=== PATIENT | female | born 1970 | race Caucasian/White ===

== ENCOUNTER 2024-06-28 11:05 | Emergency (ER) | payer BC, MEDICAID, SELFPAY ==
--- NOTE | ~2024-06-28 | CT_ITS ---
EXAMINATION: CT cervical spine wo con DATE: 06/28/2024 12:34 INDICATION: Chronic neck pain TECHNIQUE: Computed tomography (CT) of the cervical spine was performed without intravenous contrast. Automated exposure control and iterative reconstruction technique were employed. The dose-length pro duct was 247.33 mGy-cm. COMPARISON: None FINDINGS: Alignment is normal. Moderate osteoarthritis at the atlantoaxial articulation. Vertebral body heights are normal. No fracture. Mild disc height loss at C2-C3, C4-C5, C5-C6 and C7-T1. C5-6 posterior disc osteophyte complex contributing to mild central canal stenosis at this level. Moderate uncovertebral osteoarthritis on the right at C3-C4 and C5-C6 with mild uncovertebral osteoarthritis at the remaini ng cervical levels. Is also multilevel cervical facet osteoarthritis, severe on the left at C3-C4 C4- C5 and bilaterally at C7-T1 and the visualized upper thoracic spine and mild to moderate severity at the remaining cervical levels. This contributes to moderate bilateral neural foraminal stenosis at C3 -C4 with minimal to mild neural foraminal stenosis at many of the remaining cervical neural foramina. Dystrophic calcifications at the bilateral ankle tonsils. Cervical soft tissues are unremarkable. Vi sualized upper lungs are clear. IMPRESSION: 1. Mild cervical spondylosis with no acute osseous abnormality. Reviewed, dictated and finalized at location A.
--- NOTE | ~2024-06-28 | CT_ITS ---
EXAMINATION: CT brain wo con DATE: 06/28/2024 12:17 INDICATION: Parkinsonian symptoms TECHNIQUE: Computed tomography (CT) of the head was performed without intravenous contrast. Sagittal and coronal reconstructions were performed. The mA was adjusted according to patient size. Iterative reconstruction technique was employed. The dose-length product was 605.33 mGy-cm. COMPARISON: None FINDINGS: No acute intracranial hemorrhage, acute infarction or abnormal extra axial fluid collection. Ventricl es are normal and symmetric. No mass/mass effect. Mucosal thickening in the right maxillary sinus. Th e orbits and mastoid air cells are normal. IMPRESSION: 1. No acute intracranial process. Reviewed, dictated and finalized at location A.
--- OUTSIDE RECORDS SUMMARY | 2024-06-28 11:08 | XMS_ITS | Encounter Summary ---
Author Organization [facility] Address [facility] [place] [address] Care Team Providers Care Rip Saw Operator Name Role Phone Miguel Ángel Oliva MD Primary Care Provider [phone] Encounter Details Date Type Department Care Team (Late st Contact Info) Description 11/23/2021 [employer] Message Enc [facility] Medical Group Multispecialty Care - [address] [place], [place] [id number] [employer], [facility] Provider xray result Social History Tobacco Use Types Packs/Day Years Used Date Smoking Tobacco: Every Day Cigarettes 0.3 20 Smokeless Tobacco: Never Comments:smoking 1 stick per day now Alcohol Use Standard Drinks/Week Comments Never 0 (1 standard drink = 0.6 oz pur e alcohol) AUDIT-C Answer Date Recorded Q1: How often do you have a drink containing alc ohol? Never 06/24/2020 Average Number of Drinks Not on file 021 Frequency of Binge Drinking Not on file 07/2020 PHQ-2 Answer Date Recorded PHQ-2 Score - If the patient scores above 3, please move on to questions 3-9 5 08/16/2021 Comments No Sex and Gender Information Value Date Recorded Sex Assigned at Female 04/24/2024 2:19 PM FINANCIAL PLANNING CONSULTANT Legal Sex Female 4:25 PM CDT Gender Identity Female 05/09/2024 11:14 AM CDT Sexual Orientation Straight 05/09/2024 11 :14 AM CDT COVID-19 Exposure Response Date Recorded In the last 10 days, have yo u been in contact with someone who was confirmed or suspected to have Coronavirus/COVID-19? No / Unsure 11/23/2021 10:35 AM CDT documented as of this encounter Plan of Treatment Upcoming Encounters Date Type Department Care Team (Late st Contact Info) Description 06/30/2024 10:40 AM CDT Office Visit [facility] Medical Group Multispecialty Care - [address] [address] [address] [place] [address] Miguel Ángel Oliva MD [address] [place] [address] documented as of this encounter Visit Diagnoses Not on filedocumented in this encounter Additional Health Concerns Assessment Noted Time PHQ-9 Depression Total Score: 20 022 11:52 AM CDT documented as of this encounter Care Teams Rip Saw Operator Relationship Specialty Start Date End Date Miguel Ángel Oliva MD [address] [place] [address] PCP - General INTERNAL MEDICINE 06/16/21 Nish Hunter Referring Physician 12/04/23 documented as of this encounter
--- OUTSIDE RECORDS SUMMARY | 2024-06-28 11:08 | XMS_ITS | Encounter Summary ---
Author Organization [facility] Address [address] [place] [address] Care Team Providers Care Jockey Agent Name Role Phone Carlyn Mcmahon MD Primary Care Provider [phone] Miguel Ángel Oliva MD Primary Care Provider [phone] Encounter Details Date Type Department Care Team (Late st Contact Info) Description 11/29/2020 Prep for Procedure [facility] [address] [place] [address] Mireya Cardenas MD [address] [facility] [address] [place], [place] [address] Social History Tobacco Use Types Packs/Day Years Used Date Smoking Tobacco: Every Day Cigarettes 0.5 20 Smokeless Tobacco: Never Alcohol Use Standard Drinks/Week Comments Never 0 [...] 3, please move on to questions 3-9 0 12/01/2020 Comments No Sex and Gender Information Value Date Recorded Sex Assigned at Female 04/24/2024 2:19 PM SPECIAL DELIVERY CLERK Legal Sex Female 4:25 PM CDT Gender Identity Female 05/09/2024 11:14 AM CDT Sexual Orientation Straight 05/09/2024 11 :14 AM CDT COVID-19 Exposure Response Date Recorded In the last month, have you been in contact with someone who was confirmed or suspected to have Coronavirus / COVID-19? No / Unsure 12/01/2020 5:42 PM CDT documented as of this encounter Plan of Treatment Upcoming Encounters Date Type Department Care Team (Late st Contact Info) Description 06/30/2024 10:40 AM CDT Office Visit [facility] Group Multispecialty Care - [place] [address] [address] [address] [place] [address] Miguel Ángel Oliva MD [address] [facility] [address] [place] [address] documented as of this encounter Results * PRE-SURGICAL/PRE-PROCEDURE CORONAVIRUS (COVID 19) (12/05/2020 9:06 AM CDT) SPECIMEN SOURCE NASAL 8:48 AM CDT [facility] CORONAVIRUS SARS COV 2 PCR (RESP) NEGATIVE NEGATIVE 12/06/2020 8:26 PM CDT [facility] Comment: THE SARS-CoV-2 TEST HAS BEEN AUTHORIZED BY THE FDA UNDER AN EUA FOR USE BY AUTHORIZED LABORATORIES. PERFORMED BY NUCLEIC ACID AMPLIFICATION PCR FIRST TEST UNKNOWN 12/05/2020 8:48 AM CDT [facility] EMPLOYED IN HEALTHCARE NO 12/05/2020 8:48 AM CDT [facility] SYMPTOMATIC DEFINED BY CDC UNKNOWN 12/05/2020 8:48 AM CDT [facility] HOSPITALIZATION STATUS NO 12/05/2020 8:48 AM CDT [facility] PATIENT IN ICU NO 12/05/2020 8:48 AM CDT [facility] RESIDENT OF [facility] NO 12/05/2020 8:48 AM CDT [facility] NOT 12/05/2020 8:48 AM CDT [facility] NASAL STRUCTURE / Unknown 12/05/2020 9:06 AM CDT Mireya Cardenas MD MICROBIOLOGY - GENERAL ORDER BELLO Final Result [facility] [address] [place] [address], [place] [phone] [facility] [address] [place] [address], [place] [phone] documented in this encounter Visit Diagnoses Diagnosis Preop testing- Primary Preoperative examination, unspecified Annual physical exam- Primary Routine general medical examination at a health care facility General medical exam Unspecified general medical examination Drug therapy Encounter for long-term (current) use of other medications documented in this encounter Additional Health Concerns Infection Onset Date Last Indicated Resolved Time COVID-19 Rule Out 12/05/2020 12/05/2020 12/06/2020 8:26 PM CDT COVID-19 Rule Out 02/04/2021 02/04/2021 02/05/2021 2:31 PM SPECIAL DELIVERY CLERK documented as of this encounter Care Teams Jockey Agent Relationship Specialty Start Date End Date Carlyn Mcmahon MD [address] [place] [address] PCP - General FAMILY PRACTICE 06/24/20 06/15/21 Miguel Ángel Oliva MD [address] [place] [address] PCP - General INTERNAL MEDICINE 06/16/21 Nish Hunter Referring Physician 12/04/23 documented as of this encounter
--- OUTSIDE RECORDS SUMMARY | 2024-06-28 11:08 | XMS_ITS | Encounter Summary ---
Author Organization [facility] Address [facility] [place] [address] Care Team Providers Care Curriculum And Assessment Director Name Role Phone Miguel Ángel Oliva MD Primary Care Provider [phone] Encounter Details Date Type Department Care Team (Late st Contact Info) Description 01/15/2024 Nestio Message Enc [facility] [address] [place] [address] Sandy Washington PTA LSVT appt times Social History Tobacco Use Types Packs/Day Years Used Date Smoking Tobacco: Every Day Cigarettes 0.3 20 Passive Smoke Exposure: Never Smokeless Tobacco: Never Comments:1 cig a day after l unch; counseled by Dr. Oliva. Alcohol Use Standard Drinks/Week Comments Never 0 (1 standard drink = 0.6 oz pur e alcohol) [facility] Utilities Answer Date Recorded In the past 12 months has e electric, gas, oil, or water Effective Measure threatened to shut off services in your home? No 03/13/2023 Humiliation, Afraid, Rape, and Kick questionnair e Answer Date Recorded Within the last year, have y ou been afraid of your partner or ex-partner? No 03/13/2023 Within the last year, have y ou been humiliated or emotionally abused in other ways by your partner or ex-partner? No Within the last year, have y ou been kicked, hit, slapped, or otherwise physically hurt by your partner or ex-partner? No 03/13/2023 Within the last year, have y ou been raped or forced to have any kind of sexual activity by your partner or ex-partner? No 03/13/2023 Social Connection and Isolation Panel [NHANES] A nswer Date Recorded In a typical week, how many times do you talk on the phone with family, friends, or neighbors? Once a week 03/13/2023 How often do you get together with friends or re latives? Never 03/13/2023 How often do you attend scientologist or muslim serv ices? Never 03/13/2023 Do you belong to any clubs o r organizations such as scientologist groups, unions, fraternal or athletic groups, or school groups? No 03/13/2023 How often do you attend meet ings of the clubs or organizations you belong to? Never 03/13/2023 Are you , , di vorced, , never , or living with a partner? 03/13/2023 AUDIT-C Answer Date Recorded Q1: How often do you have a drink containing alcohol? Never 03/13/2023 Q2: How many drinks containi ng alcohol do you have on a typical day when you are drinking? Patient does not drink Q3: How often do you have si x or more drinks on one occasion? Never 03/13/2023 Overall Financial Resource Strain (CARDIA) Answe r Date Recorded How hard is it for you to pa y for the very basics like food, housing, medical care, and heating? Somewhat hard 03/13/2023 PHQ-2 Answer Date Recorded Patient Health Questionnaire-2 Score 2 10/08/2023 [facility] - Occupational Stress Questionnaire Answer Date Recorded Do you feel stress - tense, restless, nervous, or anxious, or unable to sleep at night because your mind is troubled all the time - these days? Very much 03/13/2023 Exercise Vital Sign Answer Date Recorde d On average, how many days pe r week do you engage in moderate to strenuous exercise (like a brisk walk)? 7 days 03/13/2023 On average, how many minutes do you engage in exercise at this level? 10 min 03/13/2023 Hunger Vital Sign Answer Date Recorded Within the past 12 months, y ou worried that your food would run out before you got the money to buy more. Never true 03/13/19 24 Within the past 12 months, t he food you bought just didn't last and you didn't have money to get more. Never true 03/13/2023 PRAPARE - Transportation Answer Date Re corded In the past 12 months, has l ack of transportation kept you from medical appointments or from getting medications? No 02/20 In the past 12 months, has l ack of transportation kept you from meetings, work, or from getting things needed for daily living? No 03/13/2023 Housing Stability Vital Sign Answer Curtis e Recorded In the last 12 months, was t here a time when you were not able to pay the mortgage or rent on time? No 03/13/2023 In the last 12 months, how many places have you lived? 1 03/13/2023 In the last 12 months, was t here a time when you did not have a steady place to sleep or slept in a long-term (including now)? No 03/13/2023 Comments No Sex and Gender Information Value Date Recorded Sex Assigned at Female 04/24/2024 2:19 PM RESEARCH SOIL SCIENTIST Legal Sex Female 4:25 PM CDT Gender Identity Female 05/09/2024 11:14 AM CDT Sexual Orientation Straight 05/09/2024 11 :14 AM CDT documented as of this encounter Functional Status * Are you deaf or do you have serious difficulty hearing Answer Date of Assessment Author Status No 03/13/2023 6:00 PM Kasia Ramírez RN Active * Are you blind or do you have serious difficulty seeing, even when wearing glasses? Answer Date of Assessment Author Status No 03/13/2023 6:00 PM Kasia Ramírez RN Active * Do you have serious difficulty walking or climbing stairs? Answer Date of Assessment Author Status Yes 03/13/2023 6:00 PM Kasia Ramírez RN Active * Do you have difficulty dressing or bathing? Answer Date of Assessment Author Status Yes 03/13/2023 6:00 PM Kasia Rmaírez RN Active * Because of a physical, mental, or emotional condition, do you have difficulty doing errands alone such as visiting a doctor's office or shopping? Answer Date of Assessment Author Status Yes 03/13/2023 6:00 PM Kasia Ramírez RN Active documented as of this encounter Mental Status * Because of a physical, mental, or emotional condition, do you have serious difficulty concentrating, remembering, or making decisions? Answer Entry Date Author Status Yes 03/13/2023 6:00 PM RESEARCH SOIL SCIENTIST Kasia Bourne RN Active documented in this encounter Plan of Treatment Upcoming Encounters Date Type Department Care Team (Late st Contact Info) Description 06/30/2024 10:40 AM CDT Office Visit [facility] Multispecialty [facility] - [address] [address] [address] [place] [address] Miguel Ángel Oliva MD [address] [place] [address] documented as of this encounter Visit Diagnoses Not on filedocumented in this encounter Additional Health Concerns Assessment Noted Time PHQ-9 Depression Total Score: 12 024 11:33 AM CDT documented as of this encounter Care Teams Curriculum And Assessment Director Relationship Specialty Start Date End Date Miguel Ángel Oliva MD [address] [place] [address] PCP - General INTERNAL MEDICINE 06/16/21 Nish Hunter Referring Physician 12/04/23 documented as of this encounter
--- OUTSIDE RECORDS SUMMARY | 2024-06-28 11:08 | XMS_ITS | Encounter Summary ---
Author Organization [facility] Address [address] [place] [address] Care Team Providers Care Granulizing Machine Operator Name Role Phone Miguel Ángel Oliva MD Primary Care Provider [phone] Encounter Details Date Type Department Care Team (Late st Contact Info) Description 11/30/2021 [employer] Message Enc [facility] Multispecialty Care - [facility] [address] [facility], [address] [place] [address] [employer], [facility] Provider Schedule EMG Social History Tobacco Use Types Packs/Day Years [...] Sex Assigned at Female 04/24/2024 2:19 PM TENT ASSEMBLER Legal Sex Female 4:25 PM CDT Gender Identity Female 05/09/2024 11:14 AM CDT Sexual Orientation Straight 05/09/2024 11 :14 AM CDT COVID-19 Exposure Response Date Recorded In the last 10 days, have yo u been in contact with someone who was confirmed or suspected to have Coronavirus/COVID-19? No / Unsure 11/28/2021 11:58 AM CDT documented as of this encounter Plan of Treatment Upcoming Encounters Date Type Department Care Team (Late st Contact Info) Description 06/30/2024 10:40 AM CDT Office Visit [facility] Multispecialty Care - [address] [address] [address] [place] [address] Miguel Ángel Oliva MD [address] [place] [address] documented as of this encounter Visit Diagnoses Not on filedocumented in this encounter Additional Health Concerns Assessment Noted Time PHQ-9 Depression Total Score: 20 022 11:52 AM CDT documented as of this encounter Care Teams Granulizing Machine Operator Relationship Specialty Start Date End Date Miguel Ángel Oliva MD [address] [place] [address] PCP - General INTERNAL MEDICINE 06/16/21 Nish Hunter Referring Physician 12/04/23 documented as of this encounter
--- OUTSIDE RECORDS SUMMARY | 2024-06-28 11:09 | XMS_ITS | Encounter Summary ---
Author Organization [facility] Address [facility] [place] [address] Care Team Providers Care Bundler Name Role Phone Miguel Ángel Oliva MD Primary Care Provider [phone] Encounter Details Date Type Department Care Team (Late st Contact Info) Description 09/26/2021 Dry Lube Message Enc [facility] Medical Group Multispecialty Care - [address] [place], [place] [id number] [facility] Provider Lab result Social History Tobacco Use Types Packs/Day [...] Sex Assigned at Female 04/24/2024 2:19 PM CONTROL VALVE TECHNICIAN Legal Sex Female 4:25 PM CDT Gender Identity Female 05/09/2024 11:14 AM CDT Sexual Orientation Straight 05/09/2024 11 :14 AM CDT COVID-19 Exposure Response Date Recorded In the last 10 days, have yo u been in contact with someone who was confirmed or suspected to have Coronavirus/COVID-19? No / Unsure 09/23/2021 2:09 PM CDT documented as of this encounter Plan of Treatment Upcoming Encounters Date Type Department Care Team (Late st Contact Info) Description 06/30/2024 10:40 AM CDT Office Visit [facility] Medical Group Multispecialty Care - [address] [address] [address] [place] [address] Miguel Ángel Oliva MD [address] [place] [address] documented as of this encounter Visit Diagnoses Not on filedocumented in this encounter Additional Health Concerns Assessment Noted Time PHQ-9 Depression Total Score: 20 022 11:52 AM CDT documented as of this encounter Care Teams Bundler Relationship Specialty Start Date End Date Miguel Ángel Oliva MD [address] [place] [address] PCP - General INTERNAL MEDICINE 06/16/21 Nish Hunter Referring Physician 12/04/23 documented as of this encounter
--- OUTSIDE RECORDS SUMMARY | 2024-06-28 11:09 | XMS_ITS | Encounter Summary ---
Author Organization [facility] Care Team Providers Care Adobe Layer Helper Name Role Phone Griffin Banks MD Primary Care Provider [phone] Juan Carlos Bangura MD Unavailable [phone] Miguel Ángel Oliva MD Primary Care Provider [phone] Keon Jasso MD Unavailable [phone] Encounter Details Date Type Department Care Team (Latest Contact Info) Description 02/17/2015 Orders Only [facility] CLINCONV ProviderYann MD [address] [place] [address] Social History Tobacco Use Types Packs/Day Years Used Date Smoking Tobacco: Never Assessed Comments Unknown Sex and Gender Information Value Date Recorded Sex Assigned at Not on file Legal Sex Female 7:08 AM PSYCHIATRIC SECRETARY Gender Identity Not on file Sexual Orientation Not on file documented as of this encounter Plan of Treatment Not on file documented as of this encounter Procedures Procedure Name Priority Date/Time Associated Diagnosis Comments SCAN - LABS 03/05/2015 12:00 AM PSYCHIATRIC SECRETARY documented in this encounter Results * SCAN - LABS (03/05/2015 12:00 AM PSYCHIATRIC SECRETARY) Narrative 03/05/2015 12:00 AM PSYCHIATRIC SECRETARY Ordered by an unspecified provider. us Historical Provider Final Res ult documented in this encounter Visit Diagnoses Not on filedocumented in this encounter Additional Health Concerns Infection Onset Date Last Indicated Resolved Time COVID: Suspected 04/04/2024 04/04/2024 04/04/2024 12:15 PM PSYCHIATRIC SECRETARY documented as of this encounter Care Teams Adobe Layer Helper Relationship Specialty Start Date End Date Griffin Banks MD [address] [facility] [address] [place] [address] PCP - General 06/12/16 10/03/22 Miguel Ángel Oliva MD [address] [place] [address] PCP - General Internal Medicine 10/04/22 Juan Carlos Bangura MD [address] [facility] [address] [place] [address] Referring Physician Neurology 09/12/22 Keon Jasso MD [phone] [place] [address] Surgeon Colon and Rectal Surgery 05/24/23 documented as of this encounter
--- OUTSIDE RECORDS SUMMARY | 2024-06-28 11:09 | XMS_ITS | Clinical Summary ---
Author Organization [facility] Address [facility] [place] [address] Care Team Providers Care Kiln Car Repairer Name Role Phone Miguel Ángel Oliva MD Primary Care Provider [phone] Allergies Active Allergy Reactions Criticality Noted Date Comments Gabapentin Syncope High 03/13/2023 Can not take anymore. Penicillins Hives,Rash High 06/24/2020 Other reaction(s): Hives Reaction: Hives, Rash, Medications Magnesium 100 MG TabIndications:Hy pomagnesemia Take 100 mg by mouth daily. 90 tablet 1 09/24/19 22 Active lidocaine 4 % patchIndications: Cervical radiculopathy Place 1 patch onto the skin daily. Remove & Discard patch within 12 hours or as directed by MD 30 patch 12/15/19 22 Active carbidopa-levodop a (SINEMET) 25-100 MG tablet TAKE 1 AND 1/2 TABLETS BY MOUTH THREE TIMES DAILY 07/22/19 24 Active azelastine (ASTELIN) 0.1 % nasal sprayIndications: Seasonal allergic rhinitis, unspecified trigger 1 spray by Nasal route 2 (two) times daily. Use in each nostril as directed 30 mL 1 10/08/19 24 Active Additional Information Patient not taking.Reported on 05/09/2024 ondansetron (ZOFRAN-ODT) 4 MG disintegrating tabletIndications :Nausea DISSOLVE 1 TABLET ON THE TONGUE EVERY 12 HOURS NEEDED FOR NAUSEA 180 tablet 11/19/19 24 Active famotidine (PEPCID) 20 MG tabletIndications :Epigastric pain Take 1 tablet (20 mg total) by mouth 2 (two) times daily. 180 tablet 1 01/28/20 24 Active amLODIPine (NORVASC) 10 MG tabletIndications :Primary hypertension Take one tablet if blood pressure >160/90 mmhg 90 tablet 01/28/20 24 Active Additional Information Patient not taking.Reported on 05/09/2024 busPIRone (BUSPAR) 30 MG tabletIndications :Anxiety Take 1 tablet (30 mg total) by mouth 2 (two) times daily. 180 tablet 1 01/28/20 24 Active Additional Information Patient not taking.Reported on 05/09/2024 DULoxetine (CYMBALTA) 30 MG capsuleIndication s:Anxiety,Moderat e episode of recurrent major depressive disorder (CMS/HCC) Take 1 capsule (30 mg total) by mouth daily. 90 capsule 01/28/20 24 Active Additional Information Patient not taking.Reported on 05/09/2024 ezetimibe (ZETIA) 10 MG tabletIndications :Mixed hyperlipidemia Take 1 tablet (10 mg total) by mouth daily. 90 tablet 3 01/28/20 24 Active Additional Information Patient not taking.Reported on 05/09/2024 fluticasone propionate (FLONASE) 50 MCG/ACT nasal sprayIndications: Seasonal allergic rhinitis, unspecified trigger 2 sprays by Nasal route daily. 16 g 5 01/28/20 24 Active Additional Information Patient not taking.Reported on 05/09/2024 omeprazole (PRILOSEC) 40 MG capsuleIndication s:Gastroesophagea l reflux disease without esophagitis Take 1 capsule (40 mg total) by mouth daily. 90 capsule 1 01/28/20 24 Active rosuvastatin (CRESTOR) 40 MG tabletIndications :Mixed hyperlipidemia Take 1 tablet (40 mg total) by mouth nightly at bedtime. 90 tablet 1 01/28/20 24 Active triamterene-hydro CHLOROthiazide (MAXZIDE-25) 37.5-25 MG tabletIndications :Meniere's disease of both ears,Primary hypertension Take 1 tablet by mouth daily. 90 tablet 2 01/28/20 24 Active Lidocaine HCl (GI COCKTAIL, -10ML,VISC LIDOCAINE-10ML,MY LANTA-30ML,)Indic ations:Epigastric pain Take 30 mLs by mouth daily as needed. 200 mL 01/28/20 24 Active Additional Information Patient not taking.Reported on 05/09/2024 Sodium Sulfate-Mag Sulfate-KCl (SUTAB) 8959-035-194 MG TabIndications:Ch ronic diarrhea,Upper abdominal pain Take 12 tablets by mouth see administration instructions. Take 12 tablets at 5:00pm the evening before colonoscopy then take 12 tablets at 4:00am morning of colonoscopy. 24 tablet 01/30/20 24 Active Additional Information Patient not taking.Reported on 05/09/2024 docusate sodium (COLACE) 100 MG capsule Take 1 capsule (100 mg total) by mouth 2 (two) times daily. 03/31/19 25 Active onabotulinumtoxin A (BOTOX) 100 units injection Inject 200 Units into the muscle. 06/18/19 25 026 Active polyethylene glycol (GLYCOLAX) 17 GM/SCOOP powder Take 17 g by mouth daily. 04/11/19 25 Active meclizine (ANTIVERT) 25 MG tabletIndications :Vertigo,Meniere' s disease of both ears TAKE 1 TABLET(25 MG) BY MOUTH TWICE DAILY 30 tablet 05/27/19 25 Active ALPRAZolam (XANAX) 1 MG tabletIndications :Meniere's disease of both ears Take 1 tablet (1 mg total) by mouth daily as needed for Anxiety. 10 tablet 06/25/19 25 Active ALPRAZolam (XANAX) 1 MG tabletIndications :Meniere's disease of both ears Take 1 tablet (1 mg total) by mouth daily as needed for Anxiety. 30 tablet 05/27/19 25 025 Disconti nued(Reo rder) Active Problems Problem Noted Date Diagnosed Date Gait disorder 04/23/2024 Chronic diarrhea 01/30/2024 Upper abdominal pain 01/30/2024 Parkinson's disease ([facility]) 12/04/2023 Pelvic pain 06/11/2023 At high risk for falls 04/30/2023 Cervical radiculopathy 12/14/2021 Parkinsonism ([facility]) 12/13/2021 Recurrent major depressive disorder 07/20/2021 Overview (07/20/2021): On Cymbalta with close follow up. Referred to therapy. No suicidal ideation or intention to harm. Hypertension 07/20/2021 Chronic low back pain 07/20/2021 Polyarthralgia 07/20/2021 Fibromyalgia 07/20/2021 Liver nodule 02/22/2021 Status post laparoscopic cholecystectomy 022 Anxiety 11/24/2015 Active cochleovestibular Meniere's disease 05/19 Migraine headache 05/20/2015 Meniere's disease 03/17/2015 Vertigo 11/19/2005 Resolved Problems Problem Noted Date Diagnosed Date Resolved Date Rectal pain 06/28/2020 06/15/2021 Overview (06/28/2020): Added automatically from request for surgery [id number] Rectal bleed 06/28/2020 06/15/2021 Overview (06/28/2020): Added automatically from request for surgery [id number] Hemorrhoids 06/28/2020 06/15/2021 Overview (06/28/2020): Added automatically from request for surgery [id number] Encounters Date Type Department Care Team Description 06/27/2024 Telephone [facility] Multispecialty Care - [place] [address] [facility] [address] [place] [address] Miguel Ángel Oliva MD ENT Symptoms 06/05/2024 1:07 PM CDT - 06/05/2024 11:59 PM CDT Hospital Encounter [facility] Outpatient Rehab [address] [place] [id number] Sheyla Murillo, PT Miguel Ángel Oliva MD Gait Disturbance Discharge Disposition: Home or Self Care (Routine Discharge) 06/05/2024 1:07 PM CDT - 06/05/2024 11:59 PM CDT Hospital Encounter [facility] Occupational Therapy [id number] [place] [id number] Heidi Matias V, OT Miguel Ángel Oliva MD Weakness Discharge Disposition: Home or Self Care (Routine Discharge) 06/05/2024 Travel 06/03/2024 1:42 PM CDT - 06/03/2024 11:59 PM CDT Hospital Encounter [facility] Outpatient Rehab [address] [place] [address] Miguel Ángel Oliva MD Arentsen, Anita A, PRINCIPAL STATISTICAL SCIENTIST Discharge Disposition: Home or Self Care (Routine Discharge) 06/03/2024 Travel 05/29/2024 10:36 AM CDT - 05/29/2024 11:59 PM CDT Hospital Encounter [facility] Outpatient Rehab [address] [place] [address] Heidi Matias V, Miguel Ángel Guerrero MD Arentsen, Anita A, PRINCIPAL STATISTICAL SCIENTIST Balance Problem Discharge Disposition: Home or Self Care (Routine Discharge) 05/29/2024 10:30 AM CDT - 05/29/2024 10:35 AM CDT Hospital Encounter [facility] Occupational Therapy [address] [place] [address] Heidi Matias V, Miguel Ángel Guerrero MD Weakness Discharge Disposition: Home or Self Care (Routine Discharge) 05/29/2024 Travel 05/26/2024 11:00 AM CDT - 05/26/2024 11:59 PM CDT Hospital Encounter [facility] Outpatient Rehab [address] [place] [id number] Sheyla Murillo, PT Miguel Ángel Oliva MD Gait Disturbance Discharge Disposition: Home or Self Care (Routine Discharge) 05/26/2024 Travel 05/19/2024 1:00 PM CDT - 05/19/2024 11:59 PM CDT Hospital Encounter [facility] Outpatient Rehab [address] [place] [phone] Sheyla Murillo, PT Miguel Ángel Oliva MD Gait Disturbance Discharge Disposition: Home or Self Care (Routine Discharge) 05/19/2024 Travel 05/09/2024 11:00 AM CDT Office Visit [facility] Medical [facility] Multispecialty Care - [address] [place] [address] Miguel Ángel Oliva MD Follow Up (Hospital stay and status post hemorrhoidectomy); Constipation; Urinary Problem 05/09/2024 Travel 05/06/2024 10:45 AM CDT - 05/06/2024 11:59 PM CDT Hospital Encounter [facility] Outpatient Rehab [address] [place] [address] Sheyla Murillo, PT Miguel Ángel Oliva MD Gait Disturbance Discharge Disposition: Home or Self Care (Routine Discharge) 05/06/2024 Travel 05/01/2024 Scan [facility] SRVCS Scanned, [facility] 04/30/2024 10:43 AM CDT - 04/30/2024 11:59 PM CDT Hospital Encounter [facility] Occupational Therapy [address] [place] [address] Heidi Matias V, OT Miguel Ángel Oliva MD Weakness Discharge Disposition: Home or Self Care (Routine Discharge) 04/30/2024 Travel 04/23/2024 [facility]phone [facility] [place] [address] [address] [facility] [address] [place] [address] Miguel Ángel Oliva MD Hospital Discharge 04/23/2024 Telephone [facility] Outpatient Rehab [address] [place] [address] Nell Marcos, PT Referral 04/11/2024 Telephone [place] [address] [address] [facility] [address] [place] [address] Miguel Ángel Oliva MD Question 04/04/2024 Scan [facility] Scanned, [facility] from Last 3 Months Immunizations Immunization Administration Dates Next Due Tdap (Generic) 02/19/2015 Family History Medical History Relation Comments Anxiety Father Depression Father Heart Father Heart Disease Father Hypertension Father Rheumatoid Arthritis Father Diabetes Mother Heart Mother Hypertension Mother Relation Status Comments Father Mother Social History Tobacco Use Types Packs/Day Years Used Date Smoking Tobacco: Former Cigarettes 0.3 59 S tarted: 1985 Passive Smoke Exposure: Never Smokeless Tobacco: Never Tobacco Cessation:Counseling Given: Yes Comments:1 cig a day after lunch; counseled by Dr. Oliva. Alcohol Use Standard Drinks/Week Comments Never 0 (1 standard drink = 0.6 oz pur e alcohol) [facility] Utilities Answer Date Recorded In the past 12 months has th e electric, gas, oil, or water company threatened to shut off services in your [...] Never 03/13/2023 How often do you attend confucianist or rastafarian serv ices? Never 03/13/2023 Do you belong to any clubs o r organizations such as confucianist groups, unions, fraternal or athletic groups, or [...] Date Recorded Patient Health Questionnaire-2 Score 2 05/09/2024 [facility] [place] [facility] Occupat ional Health - Occupational Stress [...] place to sleep or slept in a senior living (including now)? No 03/13/2023 Comments No Sex and Gender Information Value Date Recorded Sex Assigned at Female 04/24/2024 2:19 PM DESTINATION IMAGINATION COORDINATOR Legal Sex Female 4:25 PM CDT Gender Identity Female 05/09/2024 11:14 AM CDT Sexual Orientation Straight 05/09/2024 11 :14 AM CDT Last Filed Vital Signs Vital Sign Reading Time Taken Comments Blood Pressure 136/82 05/09/2024 11:16 AM CDT Pulse 65 05/09/2024 11:16 AM CDT Temperature 36.4 C (97.6 F) 05/09/2024 11:16 AM CDT Respiratory Rate 18 05/09/2024 11:16 AM CDT Oxygen Saturation 100% 05/09/2024 11:16 AM CDT Inhaled Oxygen Concentration - - Weight 57.9 kg (127 lb 9.6 oz) 05/09/2024 11:16 AM CDT Height 167.6 cm (5' 6 ) 05/09/2024 11:16 AM CDT Body Mass Index 20.6 05/09/2024 11:16 AM CDT Plan of Treatment Upcoming Encounters Date Type Department Care Team (Late st Contact Info) Description 06/30/2024 10:40 AM CDT Office Visit [facility] Medical [facility] Multispecialty Care [place] [address] [place] [address] [address] [place], [place] [phone] Miguel Ángel Oliva MD [address] [facility] [address] [place], [place] [id number] Health Maintenance Due Date Last Done Comments Hepatitis B Vaccines (1 of 3 - 19+ 3-dose series) 02/04/1988 Mammogram Screening 2009 Pneumococcal Vaccine: 50+ Years (1 of 1 - PCV) 2019 Zoster Vaccines (1 of 2) 2019 COVID-19 Vaccine (1 - 2023-2 5 season) 2023 Annual Physical 07/03/2024 07/04/2023, 06/19/2022, 06/15/2021 DTaP, Tdap and Td Vaccines ( 2 - Td or Tdap) 02/19/2025 02/19/2015 Colorectal Cancer Screening Colonoscopy (10 Years) 08/04/2030 08/04/2020, 08/04/2020 Hepatitis C Completed 06/15/2021 PHQ-2 (Physician [place]) Completed 05/09/2024 Meningococcal B Vaccine Aged Out No l onger eligible based on patient's age to complete this topic Meningococcal Vaccine Aged Out No ahmet jessica eligible based on patient's age to complete this topic RSV Immunizations Under 20 Months Aged Out No longer eligible b ased on patient's age to complete this topic Procedures Procedure Name Priority Date/Time Associated Diagnosis Comments CBC W/DIFF AUTOMATED Routine 05/09/2024 11:57 AM CDT Drug therapy Status post hemorrhoidectomy Urine retention Slow transit constipation TSH W/REFLEX Routine 05/09/2024 11:57 AM CDT Drug therapy Status post hemorrhoidectomy Urine retention Slow transit constipation COMPREHENSIVE METABOLIC PANEL Routine 05/09/2024 11:57 AM CDT Drug therapy Status post hemorrhoidectomy Urine retention Slow transit constipation COLLECTION VENOUS BLOOD VENIPUNCTURE Routine 05/09/2024 11:40 AM CDT Drug therapy Status post hemorrhoidectomy Urine retention Slow transit constipation HEPATITIS C ANTIBODY Routine 06/15/2021 12:28 PM CDT Annual physical exam Encounter to establish care Routine general medical examination at a health care facility Encounter for hepatitis C screening test for low risk patient COLONOSCOPY GENERIC (SCAN ORDER) Routine 08/04/2020 from Last 3 Months or Most Recently Relevant to Health Maintenance Results * TSH W/REFLEX (05/09/2024 11:57 AM CDT) TSH 0.608 0.358 - 3.740 uIU/ML 05/09/2024 8:00 PM CDT [facility] 05/09/2024 11:5 7 AM CDT Miguel Ángel Oliva MD LABORATORY Final Result Performing Organization Address City/State/[facility] Co de Phone Number [facility] [address] [place] [address], [place] [phone] * (ABNORMAL) COMPREHENSIVE METABOLIC PANEL (05/09/2024 11:57 AM CDT) SODIUM S/P/B 143 136 - 145 MMOL/L 05/09/2024 8:00 PM CDT [facility] POTASSIUM S/P/B 4.2 3.5 - 5.1 MMOL/L 05/09/2024 8:00 PM CDT [facility] CHLORIDE S/P/B 104 98 - 107 MMOL/L 05/09/2024 8:00 PM [facility] CO2 32.3(H) 21 - 32 MMOL/L 05/09/2024 8:00 PM CDT [facility] GLUCOSE 80 70 - 99 MG/DL 05/09/2024 8:00 PM T [facility] BUN 11 7 - 18 MG/DL 05/09/2024 8:00 PM T [facility] CREATININE S/P/B 0.49(L) 0.55 - 1.02 MG/DL 05/09/2024 8:00 PM T [facility] CALCIUM S/P/B 9.3 8.4 - 10.5 MG/DL 05/09/2024 8:00 PM [facility] BILIRUBIN TOTAL S/P/B 0.5 0.2 - 1.0 MG/DL 05/09/2024 8:00 PM T [facility] ALKALINE PHOSPHATASE S/P/B 54 41 - 108 U/L 05/09/2024 8:00 PM T [facility] AST 12(L) 15 - 37 U/L 05/09/2024 8:00 PM T [facility] ALT 19 14 - 59 U/L 05/09/2024 8:00 PM T [facility] TOTAL PROTEIN S/P/B 7.1 6.4 - 8.2 G/DL 05/09/2024 8:00 PM T [facility] ALBUMIN S/P/B 4.5 3.4 - 5.0 G/DL 05/09/2024 8:00 PM T [facility] ANION GAP 6.7 5 - 15 MMOL/L 05/09/2024 8:00 PM T [facility] Comment:REFERENCE RANGE NOT ESTABLISHED OSMOLALITY (CALC) 294 MOSM/KG 025 8:00 PM CDT [facility] Comment:REFERENCE RANGE NOT ESTABLISHED GFR ESTIMATE >90 >90 ML/MIN/1. 73 M2 05/09/2024 8:00 PM CDT [facility] GFR NOTES GFR REFERENCE S: 05/09/2024 8:00 PM CDT [facility] Comment: THE ESTIMATED GFR IS CALCULATED USING THE 2020 CKD-EPI EQUATION. THE FOLLOWING CATEGORIES FOR GRADING RENAL FUNCTION ARE RECOMMENDED BY THE INTERNATIONAL SOCIETY OF NEPHROLOGY (KDIGO 2012 CLINICAL PRACTICE GUIDELINE). G1,NORMAL OR HIGH: >89 ml/min/1.73 m2 G2,MILDLY DECREASED: 60-89 ml/min/1.73 m2 G3A,MILDLY TO MODERATELY DECREASED: 45-59 ml/min/1.73 m2 G3B,MODERATELY TO SEVERELY DECREASED: 30-44 ml/min/1.73 m2 G4,SEVERELY DECREASED: 15-29 ml/min/1.73 m2 G5,KIDNEY FAILURE: <15 ml/min/1.73 m2 05/09/2024 11:5 7 AM CDT Miguel Ángel Oliva MD LABORATORY Final Result [facility] [address] [place] [address], * (ABNORMAL) CBC W/DIFF AUTOMATED (05/09/2024 11:57 AM CDT) WBC 5.47 4.00 - 10.80 x10'3/uL 05/09/2024 7:31 PM CDT [facility] RBC 4.47 4.10 - 5.40 x10'6/uL 05/09/2024 7:31 PM CDT [facility] HGB 14.2 12.0 - 16.0 G/DL 05/09/2024 7:31 PM CDT [facility] HCT 41.6 36.0 - 47.0 % 05/09/2024 7:31 PM CDT [facility] MCV 93.1 78.0 - 100.0 FL 05/09/2024 7:31 PM CDT [facility] MCH 31.8(H) 27.0 - 31.0 PG 05/09/2024 7:31 PM CDT [facility] MCHC 34.1 33.0 - 36.0 G/DL 05/09/2024 7:31 PM CDT [facility] RDW 12.2 11.5 - 14.5 % 05/09/2024 7:31 PM CDT [facility] PLT 259 150 - 350 x10'3/uL 05/09/2024 7:31 PM CDT [facility] MPV 9.0 7.4 - 10.4 FL 05/09/2024 7:31 PM CDT [facility] DIFFERENTIAL TYPE AUTOMATED DIFFERENTIAL 05/09/2024 7:31 PM CDT [facility] NEUTROPHILS % 64.2 % 05/09/2024 7:31 PM CDT [facility] LYMPHOCYTES % 29.6 % 05/09/2024 7:31 PM CDT [facility] MONOCYTES % 4.9 % 05/09/2024 7:31 PM CDT [facility] EOSINOPHILS % 1.1 % 05/09/2024 7:31 PM CDT [facility] BASOPHILS % 0.2 % 05/09/2024 7:31 PM CDT [facility] IMMATURE GRANS % 0.0 % 05/09/2024 7:31 PM CDT [facility] ABS. NEUTROPHILS 3.51 1.60 - 8.30 x10'3/uL 05/09/2024 7:31 PM CDT [facility] ABS. LYMPHOCYTES 1.62 0.80 - 4.70 x10'3/uL 05/09/2024 7:31 PM CDT [facility] ABS. MONOCYTES 0.27 0.00 - 1.50 x10'3/uL 05/09/2024 7:31 PM CDT [facility] ABS. EOSINOPHILS 0.06 0.00 - 0.40 x10'3/uL 05/09/2024 7:31 PM CDT [facility] ABS. BASOPHILS 0.01 0.00 - 0.20 x10'3/uL 05/09/2024 7:31 PM CDT [facility] ABS. IMMATURE GRANULOCYTES 0.00 0.00 - 0.03 x10'3/uL 05/09/2024 7:31 PM CDT [facility] 05/09/2024 11:5 7 AM CDT Miguel Ángel Oliva MD LABORATORY Final Result Performing Organization Address City/[facility]/ZIP Co de Phone Number [facility] [address] [place] [address], [place] [phone] * HEPATITIS C ANTIBODY (06/15/2021 12:28 PM CDT) HEPATITIS C AB NON-REACTI VE NON-REACT KISHA 06/15/2021 9:[address] [facility] Comment: ANTIBODIES TO HCV NOT DETECTED. DOES NOT EXCLUDE THE POSSIBILITY OF EXPOSURE TO HCV. 06/15/2021 12:2 8 PM CDT Miguel Ángel Oliva MD LABORATORY Final Result [facility] [address] [place] [address], [place] [phone] [id number] * COLONOSCOPY (08/04/2020) Documents Scanned SCANNING Final Result [facility] ONBASE from Last 3 Months or Most Recently Relevant to Health Maintenance Insurance [facility] BLUE SHIELD MEDICAID Advance Directives * Full Code (Latest Code Status on File) Date Activated Date Inactivated Comments 03/13/2023 3:16 PM 03/15/2023 3:16 PM Care Teams Kiln Car Repairer Relationship Specialty Start Date End Date Miguel Ángel Oliva MD [address] [facility] [address] [place] [id number] PCP - General INTERNAL MEDICINE 06/16/21 Nish Hunter Referring Physician 12/04/23
--- OUTSIDE RECORDS SUMMARY | 2024-06-28 11:09 | XMS_ITS | Encounter Summary ---
Author Organization [facility] Address [address] [place] [address] Care Team Providers Care Caption Writer Name Role Phone Carlyn Mcmahon MD Primary Care Provider Miguel Ángel Oliva MD Primary Care Provider [phone] Encounter Details Date Type Department Care Team (Late st Contact Info) Description 07/22/2020 Prep for Procedure [facility] [address] [place], [place] [id number] Chavo Delgado MD [address] [address] Social History Tobacco Use Types Packs/Day Years [...] of Binge Drinking Not on file 07/2020 Comments No Sex and Gender Information Value Date Recorded Sex Assigned at Female 04/24/2024 2:19 PM POUCH MAKER Legal Sex Female 4:25 PM CDT Gender Identity Female 05/09/2024 11:14 AM CDT Sexual Orientation Straight 05/09/2024 11 :14 AM CDT COVID-19 Exposure Response Date Recorded In the last month, have you been in contact with someone who was confirmed or suspected to have Coronavirus / COVID-19? No / Unsure 06/24/2020 12:59 PM CDT documented as of this encounter Plan of Treatment Upcoming Encounters Date Type Department Care Team (Late st Contact Info) Description 06/30/2024 10:40 AM CDT Office Visit [facility] [place] [address] [facility] [address] [place] [address] Miguel Ángel Oliva MD [address] [facility] [address] [place] [address] documented as of this encounter Results * PRE-SURGICAL/PRE-PROCEDURE CORONAVIRUS (COVID 19) (10/10/2020 9:55 AM CDT) SPECIMEN SOURCE NASAL 9:49 AM CDT [facility] CORONAVIRUS SARS COV 2 PCR (RESP) NEGATIVE NEGATIVE 10/12/2020 1:12 AM CDT [facility] Comment: THE SARS-CoV-2 TEST HAS BEEN AUTHORIZED BY THE FDA UNDER AN EUA FOR USE BY AUTHORIZED LABORATORIES. PERFORMED BY NUCLEIC ACID AMPLIFICATION PCR FIRST TEST NO 10/10/2020 9:49 AM CDT [facility] EMPLOYED IN HEALTHCARE NO 10/10/2020 9:49 AM CDT [facility] SYMPTOMATIC DEFINED BY CDC NO 10/10/2020 9:49 AM CDT [facility] DATE OF SYMPTOM ONSET UNKNOWN 10/10/2020 12:10 PM CDT [facility] HOSPITALIZATION STATUS NO 10/10/2020 9:49 AM CDT [facility] PATIENT IN ICU NO 10/10/2020 9:49 AM CDT [facility] RESIDENT OF [facility] NO 10/10/2020 9:49 AM CDT [facility] NOT 10/10/2020 9:49 AM CDT [facility] NASOPHARYNGEAL SWAB / Unknown 10/10/2020 9:55 AM CDT Mireya Cardenas MD MICROBIOLOGY - GENERAL ORDER BELLO Final Result [facility] [address] [place] [address], [place] [phone] [facility] [address] [place] [address], [place] [phone] * PRE-SURGICAL/PRE-PROCEDURE CORONAVIRUS (COVID 19) (08/01/2020 7:59 AM CDT) SPECIMEN SOURCE NASOPHARYNGEAL SWAB 08/01/2020 7:55 AM CDT [facility] CORONAVIRUS SARS COV 2 PCR (RESP) NEGATIVE NEGATIVE 08/02/2020 6:27 PM CDT [facility] Comment: THE SARS-CoV-2 TEST HAS BEEN AUTHORIZED BY THE FDA UNDER AN EUA FOR USE BY AUTHORIZED LABORATORIES. PERFORMED BY NUCLEIC ACID AMPLIFICATION PCR FIRST TEST UNKNOWN 08/01/2020 7:55 AM CDT [facility] EMPLOYED IN HEALTHCARE UNKNOWN 08/01/2020 7:55 AM CDT [facility] SYMPTOMATIC DEFINED BY CDC UNKNOWN 08/01/2020 7:55 AM CDT [facility] DATE OF SYMPTOM ONSET UNKNOWN 08/01/2020 8:08 AM CDT [facility] HOSPITALIZATION STATUS NO 08/01/2020 7:55 AM CDT [facility] PATIENT IN ICU NO 08/01/2020 7:55 AM CDT [facility] RESIDENT OF [facility] CARE NO 08/01/2020 7:55 AM CDT [facility] NOT 08/01/2020 7:55 AM CDT [facility] NASOPHARYNGEAL SWAB / Unknown 08/01/2020 7:59 AM CDT Chavo Delgado MD MICROBIOLOGY - GENERAL ORDERABLE S Final Result [facility] [address] [place] [address], [place] [phone] [facility] [address] [place] [address], [place] [phone] documented in this encounter Visit Diagnoses Diagnosis Preop testing- Primary Preoperative examination, unspecified Annual physical exam- Primary Routine general medical examination at a health care facility General medical exam Unspecified general medical examination Drug therapy Encounter for long-term (current) use of other medications documented in this encounter Additional Health Concerns Infection Onset Date Last Indicated Resolved Time COVID-19 Rule Out 08/01/2020 08/01/2020 08/02/2020 6:27 PM CDT COVID-19 Rule Out 10/10/2020 10/10/2020 10/12/2020 1:12 AM CDT COVID-19 Rule Out 12/05/2020 12/05/2020 12/06/2020 8:26 PM CDT COVID-19 Rule Out 02/04/2021 02/04/2021 02/05/2021 2:31 PM POUCH MAKER documented as of this encounter Care Teams Caption Writer Relationship Specialty Start Date End Date Carlyn Mcmahon MD [address] [place] [address] PCP - General FAMILY PRACTICE 06/24/20 06/15/21 Miguel Ángel Oliva MD [address] [address] PCP - General INTERNAL MEDICINE 06/16/21 Nish Hunter Referring Physician 12/04/23 documented as of this encounter
--- OUTSIDE RECORDS SUMMARY | 2024-06-28 11:09 | XMS_ITS | Encounter Summary ---
Author Organization [facility] Address Count includes the [facility] [place] [address] Care Team Providers Care Psychotherapist Name Role Phone Miguel Ángel Oliva MD Primary Care Provider [phone] Reason for Visit * Reason Onset Date Comments ENT Symptoms 06/27/2024 Encounter Details Date Type Department Care Team (Late st Contact Info) Description 06/27/2024 Telephone [facility] - [place] [address] [address] [place], [place] [phone] Miguel Ángel Oliva MD [address] [place] [address] [place], [place] [id number] ENT Symptoms Social History Tobacco Use Types Packs/Day Years Used Date Smoking Tobacco: Former Cigarettes 0.3 59 S tarted: 1985 Passive Smoke Exposure: Never Smokeless Tobacco: Never Comments:1 cig a day after l unch; counseled by Dr. Oliva. Alcohol Use Standard Drinks/Week Comments Never 0 (1 standard drink = 0.6 oz pur e alcohol) [facility] Utilities Answer Date Recorded In the past 12 months has [employer], gas, oil, or water [employer] threatened to shut off services in your [...] Never 03/13/2023 How often do you attend zoroastrianism or orthodoxy serv ices? 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 Patient wants to be seen for possible antibiotic. No available apptswith MD or CORRECTIONAL SECURITY OFFICER. Patient states that she feels horrible and does not want to go back to the hospital.Please advise patient when available. documented in this encounter Plan of Treatment Upcoming Encounters Date Type Department Care Team (Late st Contact Info) Description 06/30/2024 10:40 AM CDT Office Visit [facility] [place] [address] [address] [place] [address] Miguel Ángel Oliva MD [address] [place] [id number] documented as of this encounter Visit Diagnoses Not on filedocumented in this encounter Additional Health Concerns Assessment Noted Time PHQ-9 Depression Total Score: 15 025 11:52 AM CDT documented as of this encounter Care Teams Psychotherapist Relationship Specialty Start Date End Date Miguel Ángel Oliva MD [address] [place] [address] PCP - General INTERNAL MEDICINE 06/16/21 Nish Hunter Referring Physician 12/04/23 documented as of this encounter
--- OUTSIDE RECORDS SUMMARY | 2024-06-28 11:09 | XMS_ITS | Referral Summary ---
Author Organization [place] [id number] [facility] Address Count includes the [facility] [place] [address] Care Team Providers Care Consular Officer Name Role Phone Juan Carlos Bangura MD Unavailable [phone] Miguel Ángel Oliva MD Primary Care Provider [phone] Keon Jasso MD Unavailable [phone] Encounters Date Type Department Care Team Description 06/24/2024 11:30 AM CDT Office Visit [facility] Movement Disorders [address] [place] [address] 7[address] [place] [address] Samantha Roberson, MARISOL Parkinson's disease, unspecified whether dyskinesia present, unspecified whether manifestations fluctuate (HCC) (Primary Dx); Cervical dystonia 06/23/2024 Orders Only [facility] Movement Disorders [address] [place] [address] 6th [place] [address] [place] [address] Nish Hunter MD PhD Cervical dystonia 06/17/2024 9:20 AM CDT Procedure visit [facility] Movement Disorders [address] [place] [address] 6th [place] [address] [place] [address] Nish Hunter MD PhD Cervical dystonia (Primary Dx); Parkinson's disease with dyskinesia and fluctuating manifestations (HCC) 06/09/2024 Orders Only [facility] Movement Disorders [address] [place] [address] 6th [place] [address] [place] [address] Nish Hunter MD PhD Parkinson's disease with dyskinesia and fluctuating manifestations (HCC) (Primary Dx) 05/08/2024 Telephone [facility] Scheduling [address] [place] [address] Carlos Garzaa 05/05/2024 Telephone [facility] Scheduling [address] [place] [address] Nish Hunter MD PhD Scheduling Appointments 05/01/2024 3:15 PM CDT Office Visit [facility] Surgery [address] [facility] 2nd Floor [address] [place] [address] Keon Jasso MD Hemorrhoids, unspecified hemorrhoid type (Primary Dx) 04/04/2024 9:26 AM PLUMBING MECHANIC - 04/11/2024 2:52 PM PLUMBING MECHANIC Hospital Encounter [facility] [address] [place] [address] Kel Pierson MD Lacy, Timur Copeland MD Ma, MD David Linn Natalia, MD Choi, Cheuk Ho Jeffrey, MD Acute post-operative pain (Primary Dx); Other constipation; Urinary retention Discharge Disposition: Discharge to an Rehab facility 03/31/2024 7:15 AM PLUMBING MECHANIC - 03/31/2024 8:00 AM PLUMBING MECHANIC Surgery [facility] Operating Room [address] [place] [address] Keon Jasso MD EXAM UNDER ANESTHESIA - RECTUM, RIGID PROCTOSCOPE 03/31/2024 7:06 AM PLUMBING MECHANIC Anesthesia Event [facility] Operating Room [address] [place] [address] Randall Arriaga MD Wiethuchter, Kelli P., MARISOL 03/31/2024 5:40 AM PLUMBING MECHANIC - 03/31/2024 9:24 AM PLUMBING MECHANIC Hospital Encounter [facility] Operating Room [address] [place] [address] Keon Jasso MD Hemorrhoids, unspecified hemorrhoid type; Spastic pelvic floor syndrome Discharge Disposition: Discharge to home or self care from Last 3 Months Allergies Active Allergy Reactions Criticality Noted Date Comments Gabapentin Syncope High 03/13/2023 Can not take anymore. Penicillins Hives,Rash High Reaction: Hives, Rash, Medications ALPRAZolam (XANAX) 1 mg tabletIndicatio ns:anxiety Take 1 tablet (1 mg total) by mouth daily as needed for anxiety 4 Active rosuvastatin (CRESTOR) 40 mg tabletIndicatio ns:hyperlipidem ia Take 1 tablet (40 mg total) by mouth nightly 4 Active triamterene-hyd roCHLOROthiazid e 37.5-25 mg per tabletIndicatio ns:htn Take 1 tablet/capsule by mouth every morning 4 Active magnesium citrate 100 mg tablet Take 100 mg by mouth daily as needed (constipation) 2 Active carbidopa-levod opa (SINEMET) 25-100 mg per tabletIndicatio ns:Parkinson's disease (HCC) Take 1.5 tablets by mouth 3 (three) times a day 405 tablet 3 4 Active famotidine (PEPCID) 20 mg tabletIndicatio ns:Heartburn,He artburn Prevention Take 1 tablet (20 mg total) by mouth 2 (two) times a day as needed for indigestion or heartburn 4 Active meclizine (ANTIVERT) 25 mg tabletIndicatio ns:Vertigo Take 1 tablet (25 mg total) by mouth 3 (three) times a day as needed for dizziness or nausea 4 Active ondansetron (ZOFRAN) 8 mg tablet Take 1 tablet (8 mg total) by mouth 3 (three) times a day before meals 5 Active polyethylene glycol (MIRALAX) 17 gram/dose bulk powderIndicatio ns:constipation Take 17 g by mouth daily 5 Active prochlorperazin e (COMPAZINE) 5 mg tablet Take 1 tablet (5 mg total) by mouth every 8 (eight) hours as needed for nausea or vomiting 5 Active psyllium, aspartame, SF (METAMUCIL SF) 3.4 gram packetIndicatio ns:constipation Take 1 packet by mouth daily 5 Active senna-docusate (PERICOLACE) 8.6-50 mg Take 2 tablets by mouth 2 (two) times a day as needed for constipation 5 Active Anucort-HC 25 mg suppository INSERT 1 SUPPOSITORY RECTALLY EVERY 12 HOURS 5 Active carbidopa (LODOSYN) 25 mg tablet Take 1 tablet (25 mg total) by mouth 3 (three) times a day 270 tablet 3 5 06/25/19 26 Active Hospital, Clinic, or Other Facility Administered Medication Ordered Dose Route Frequency Start Date End Date Status onabotulinumtoxin A (BOTOX) injection 400 UnitsIndications:C ervical dystonia 400 Units IM Once for Clinic-Administe red Medication 09/23/2024 6 Active onabotulinumtoxin A (BOTOX) injection 200 UnitsIndications:C ervical dystonia 200 Units IM Once for Clinic-Administe red Medication 06/17/2024 5 Ended onabotulinumtoxin A (BOTOX) injection 300 UnitsIndications:C ervical dystonia 300 Units IM Once for Clinic-Administe red Medication 09/23/2024 5 Discontinued Active Problems Problem Noted Date Diagnosed Date GERD (gastroesophageal reflux disease) 5 Assessment & Plan (04/05/2024 4:14 PM PLUMBING MECHANIC): - Continue home PPI equivalent HLD (hyperlipidemia) 04/05/2024 Assessment & Plan (04/05/2024 4:14 PM PLUMBING MECHANIC): - Continue home Crestor HTN (hypertension) 04/05/2024 Assessment & Plan (04/05/2024 4:14 PM PLUMBING MECHANIC): - Continue home triamterene hydrochlorothiazide. MARISOL (generalized anxiety disorder) 04/05/2024 Assessment & Plan (04/05/2024 4:14 PM PLUMBING MECHANIC): History of generalized anxiety disorder/depression - Continue home Xanax as needed. Urinary retention 04/05/2024 Assessment & Plan (04/08/2024 4:30 PM PLUMBING MECHANIC): Likely related to recent botox injections to pelvic floor musculature, post surgical pain, opioids constipation. Requiring straight cath while earlier during admission, now resolved. - Discussed with urology. No testing to be done inpatient. Recommend ongoing straight cath vs lawrence and follow up in clinic for voiding trial. May require urodynamics as outpatient. - bladder scans discontinued as patient now voiding appropriately, no need for outpatient urology evaluation. Dizziness 04/05/2024 Assessment & Plan (04/08/2024 4:31 PM PLUMBING MECHANIC): Main complaint is dizziness. She has a history of Meniere's disease but states her usual episodes occur randomly and are different from her current symptoms. Reports she feels lightheaded and since yesterday has noted vertigo after sitting up in bed from laying flat. Also reports visual hallucinations in the ED- states she was seen an anaconda in the room when other people assured her there wasn't one. Hallucinations have since resolved. She seems very anxious. Reports feeling weak and confused which makes her scared . Attributes these symptoms to parkinsons, dehydration and inability to sleep overnight from frequent BM. Symptoms now largely resolved. Work up - No electrolyte abnormalities - Infectious work up unremarkable: RVP negative. UA unremarkable. CXR clear. AP CT no signs of infection. Bcx NGTD - HIV and RPR non-reactive - TSH and B12 wnl - UDS +benzo (pt takes xanax) Plan:. - De-escalate bowel regimen with diarrhea - Discontinue IVFs now, continue oral hydration - Encourage taking meclizine prn - Improving so will hold off on HCT at this point. Acute post-operative pain 04/04/2024 Assessment & Plan (04/08/2024 4:32 PM PLUMBING MECHANIC): Presented with postoperative perianal pain the setting of grade III hemorrhoids s/p excisional hemorrhoidectomy (R anterior and L lateral hemorrhoidal pedicles) and botox injection of pelvic floor musculature on 03/31/24, with we will do stool, constipation, urinary retention. Exam and imaging reassuring per Colorectal surgery. Admitted for symptom management, urinary retention and constipation. - Pain control: Scheduled APAP 1g TID and lidocaine patches. Continue oxycodone 5mg q4hrs PRN; IV dilaudid PRN discontinued - Constipation resolved with bowel regimen, now with diarrhea. De-escalate bowel regimen to PRN, add Metamucil dialy. - Schedule zofran with meals. Add compazine prn. 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 Griffin has stage 3 parkinsonism with L>R bradykinesia, rigidity, and postural instability. She has good response to levodopa.. 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 She also has other nonmotor symptoms suggestive of PD including hyposmia and RBD. She does have some atypical features, however -- young onset (unclear exactly when due to concurrent Meniere disease as a confounder, but likely ~2010, age 40), slow progression with apparent fluctuation over time, and myoclonic jerks. The young onset suggests a possible genetic cause, but we will defer testing for now as it would not change management facilitator. She continues to have significant wearing off. Increasing to 2 tabs per dose caused GI upset, orthostasis, fatigue, dyskinesias, and impulsivity. She can also get dyskinesia. We discussed spreading her doses to 1 tab every 3 hours. She can also take extra Carbidopa before 1st dose of C/L. She can benefit from PT , will send rx. Sleep was a problem, she can take 5-10 mg of Melatonin and increase till 20 mg or see benefit. Start Miralax for constipation. Can check OBP for orthostatics. Continue botox. Finally, she has worsening cervical dystonia secondary to PD which has become significantly more bothersome, so we recommended Botox which she was amenable to a trial. Plan Recommendations:Start Carbidopa 25 mg before 30 min before 1st dose of Carbidopa levodopa 2. Take 1 tab of C/L every 3 hours 3. Melatonin 5-10 ( max 20 mg ) at bedtime. 4 Start PT , will send script 5. Start miralax daily , and once in a routine then spread it to 2-3 times a week 6. If having light headedness, check bp sitting and standing let us know 7. Follow up in 3 months or sooner if needed 8. Continue botox Potential side effects were discussed during this encounter Assessment & Plan (04/05/2024 4:14 PM PLUMBING MECHANIC): - Continue on carbidopa levodopa Assessment & Plan (11/19/2023 11:30 AM CDT): Ms. Griffin has stage 3 parkinsonism with L>R bradykinesia, rigidity, and postural instability. She has good response to levodopa.. 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 She also has other nonmotor symptoms suggestive of PD including hyposmia and RBD. She does have some atypical features, however -- young onset (unclear exactly when due to concurrent Meniere disease as a confounder, but likely ~2010, age 40), slow progression with apparent fluctuation over time, and myoclonic jerks. The young onset suggests a possible genetic cause, but we will defer testing for now as it would not change management facilitator. We previously discussed that there are no definitive diagnostic tests for PD, but a skin biopsy might be supportive and provide more clarity. She was not interested. She continues to have significant wearing off. Increasing to 2 tabs per dose caused GI upset, orthostasis, fatigue, dyskinesias, and impulsivity. We will instead try adding a 4th dose of 1.5 tabs to see if she tolerates this better. We reviewed potential side-effects including nausea, orthostasis, and dyskinesias (she endorses all of these so we will need to monitor carefully). I again cautioned her on the potential for alprazolam to worsen balance and cognition, but it has been the only thing effective for her severe anxiety so she will continue it for now. Finally, she has worsening cervical dystonia secondary to PD which has become significantly more bothersome, so we recommended Botox which she was amenable to a trial. Recommendations: -Increase CD/LD to 1.5 tabs TID to QID(8AM, 11AM, 2PM, 5PM). -If dyskinesias worsening consider taking 1.5 tabs at 8AM and 11Am and 1 tab at 2PM and 5 PM -Will start botox for cervical dystonia -While waiting for botox appointment can continue lidocaine patches on her neck -Continue regular exercise Assessment & Plan (05/22/2023 9:43 PM CDT): She has stage 3 parkinsonism with L>R bradykinesia, rigidity, and postural instability. She has good response to levodopa, which I personally witnessed today as her bradykinesia and rigidity were noticeably worse at the beginning of our visit, improving to the above values about 30 min after she took a dose. 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 She also has other nonmotor symptoms suggestive of PD including hyposmia and RBD. She dose have some atypical features, however -- young onset (unclear exactly when due to concurrent Meniere disease as a confounder, but likely ~2010, age 40), slow progression with apparent fluctuation over time, and myoclonic jerks. The young onset suggests a possible genetic cause, but we will defer testing for now as it would not change management facilitator. I also suspect there is a functional overlay to some of her symptoms and exam findings. We discussed that there are no definitive diagnostic tests for PD, but a skin biopsy might be supportive and provide more clarity if she is interested (but would again likely not change management facilitator). She is not interested at this time. She thinks levodopa caused constipation at higher doses, though if anything it tends to increase motility. We will plan on trying to increase it again and see if she tolerates it better. We reviewed potential side-effects including nausea, orthostasis, and dyskinesias (she endorses all of these so we will need to monitor carefully). I also cautioned her on the potential for alprazolam to worsen balance and cognition, but it has been the only thing effective for her severe anxiety so she will continue it for now. Finally, she had trunk and cervical dystonia secondary to PD, and if this is bothersome to her we can consider Botox injections in the future (not discussed at today's visit). Recommendations: -increase CD/LD to 1.5 tabs TID for 2 weeks. 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 Menopausal symptom 12/03/2015 Variants of migraine 05/20/2015 Migraine headache 05/20/2015 Active cochleovestibular Meniere's disease 05/19 Meniere's disease 03/17/2015 Assessment & Plan (04/05/2024 4:06 PM PLUMBING MECHANIC): History of Meniere's disease - Continue home triamterene hydrochlorothiazide - Meclizine as needed Resolved Problems Problem Noted Date Diagnosed Date Resolved Date Anal fissure 05/24/2023 03/06/2024 Social History Tobacco Use Types Packs/Day Years Used Date Smoking Tobacco: Former Cigarettes 0.9 50.4 S tarted: 1975 Passive Smoke Exposure: Past Smokeless Tobacco: Never Tobacco Cessation:Counseling Given: Not Answered Comments:3 cigs a day AUDIT-C Answer Date Recorded Q1: How often do you have a drink containing alcohol? Never 03/31/2024 Q2: How many drinks containi ng alcohol do you have on a typical day when you are drinking? Patient does not drink Q3: How often do you have si x or more drinks on one occasion? Never 03/31/2024 Personal Safety Answer Date Recorded Have you ever been in or are you currently in a harmful physical or emotional relationship or is someone making you feel afraid or unsafe? Denies 04/05/2024 Comments No Sex and Gender Information Value Date Recorded Sex Assigned at Not on file Legal Sex Female 7:08 AM PLUMBING MECHANIC Gender Identity Not on file Sexual Orientation Not on file Last Filed Vital Signs Vital Sign Reading Time Taken Comments Blood Pressure 151/89 06/24/2024 11:26 AM CDT Pulse 56 06/24/2024 11:26 AM CDT Temperature 36.8 C (98.3 F) 06/24/2024 11:26 AM CDT Respiratory Rate 18 04/11/2024 8:17 AM PLUMBING MECHANIC Oxygen Saturation 100% 05/01/2024 2:44 PM CDT Inhaled Oxygen Concentration - - Weight 58.1 kg (128 lb) 06/24/2024 11:26 AM CDT Height 167.6 cm (5' 6 ) 06/24/2024 11:26 AM CDT Body Mass Index 20.66 06/24/2024 11:26 AM CDT Plan of Treatment Not on file Procedures Procedure Name Priority Date/Time Associated Diagnosis Comments EGFR Routine 04/07/2024 9:38 PM PLUMBING MECHANIC BASIC METABOLIC PANEL Routine 04/07/2024 9:38 PM PLUMBING MECHANIC URINALYSIS, MICROSCOPIC ONLY Routine 04/07/2024 7:52 AM PLUMBING MECHANIC URINALYSIS AND REFLEX TO MICROSCOPIC AND CULTURE Routine 04/07/2024 7:52 AM PLUMBING MECHANIC EGFR Routine 04/06/2024 9:35 PM PLUMBING MECHANIC DIFFERENTIAL AUTO Routine 04/06/2024 9:3 5 PM PLUMBING MECHANIC CBC WITH AUTO DIFFERENTIAL Routine 04/06/2024 9:35 PM PLUMBING MECHANIC BASIC METABOLIC PANEL Routine 04/06/2024 9:35 PM PLUMBING MECHANIC XR ABDOMEN AP 1 VIEW IP Routine 04/06/2024 2:16 PM PLUMBING MECHANIC XR CHEST 1 VIEW IP Routine 04/06/2024 2:16 PM PLUMBING MECHANIC ECG 12-LEAD STAT 04/06/2024 1:12 PM PLUMBING MECHANIC DRUGS OF ABUSE SCREEN, URINE WITH REFLEX CONFIRMATION Routine 04/06/2024 2:05 AM PLUMBING MECHANIC TSH Routine 04/05/2024 9:47 PM PLUMBING MECHANIC VITAMIN B12 Routine 04/05/2024 9:47 PM PLUMBING MECHANIC RPR Routine 04/05/2024 9:47 PM PLUMBING MECHANIC HIV 1/2 ANTIBODY PLUS P24 ANTIGEN Routine 04/05/2024 9:47 PM PLUMBING MECHANIC BLOOD CULTURE Routine 04/05/2024 9:[address] ABDOMEN PELVIS W CONTRAST ED 04/04/2024 12:22 PM PLUMBING MECHANIC URINALYSIS AND REFLEX TO MICROSCOPIC AND CULTURE STAT 04/04/2024 12:06 PM PLUMBING MECHANIC POCT CREATININE - DEVICE Routine 04/04/2024 10:44 AM PLUMBING MECHANIC RESPIRATORY PATHOGEN PANEL STAT 04/04/2024 10:40 AM PLUMBING MECHANIC POCT LACTATE - DEVICE Routine 04/04/2024 10:24 AM PLUMBING MECHANIC POCT LACTATE - DEVICE Routine 04/04/2024 10:00 AM PLUMBING MECHANIC EGFR STAT 04/04/2024 9:50 AM PLUMBING MECHANIC DIFFERENTIAL AUTO STAT 04/04/2024 9:5 0 AM PLUMBING MECHANIC COMPREHENSIVE METABOLIC PANEL STAT 04/04/2024 9:50 AM PLUMBING MECHANIC CBC WITH AUTO DIFFERENTIAL STAT 04/04/2024 9:50 AM PLUMBING MECHANIC SURGICAL PATHOLOGY Routine 03/31/2024 7: 30 AM PLUMBING MECHANIC Hemorrhoids, unspecified hemorrhoid type Spastic pelvic floor syndrome INJECTION BOTOX SPHINCTER 03/31/2024 7:11 AM PLUMBING MECHANIC Hemorrhoids, unspecified hemorrhoid type Spastic pelvic floor syndrome HEMORRHOIDECTOMY 03/31/2024 7:11 AM PLUMBING MECHANIC Hemorrhoids, unspecified hemorrhoid type Spastic pelvic floor syndrome EXAM UNDER ANESTHESIA - RECTUM 03/31/2024 7:11 AM PLUMBING MECHANIC Hemorrhoids, unspecified hemorrhoid type Spastic pelvic floor syndrome POC ISTAT Routine 03/31/2024 6:35 AM PLUMBING MECHANIC SERUM HEPATITIS PANEL Routine 04/18/2015 6:59 AM PLUMBING MECHANIC COLONOSCOPY REPORT 04/08/2015 from Last 3 Months or Most Recently Relevant to Health Maintenance Results * eGFR (04/07/2024 9:38 PM PLUMBING MECHANIC) Pathologist [facility] eGFR >90 >=60 mL/min/1. 73 m2 Comment: Interpretive Data Reference Interval Normal >/= 90 mL/min/1.73m2 Mildly decreased* 60 - 89 mL/min/1.73m2 Mildly to moderately decreased 45 - 59 mL/min/1.73m2 Moderately to severely decreased 30 - 44 mL/min/1.73m2 Severely decreased 15 - 29 mL/min/1.73m2 Kidney Failure < 15 mL/min/1.73m2 *Relative to young adult level Estimated glomerular filtration rate is determined by the 2020 CKD-EPI equation recommended by the National Kidney Foundation (A Unifying Approach to GFR Estimation: Recommendations of the NKF-ASK Task Force on Reassessing the Inclusion of Race in Diagnosing Kidney Disease, JASN 2020). The CKD-EPI equation should not be used for patients with unstable renal function and has not been validated in children and those over 70. Current interpretive data was last reviewed 2020. Blood 04/07/2024 9:38 PM PLUMBING MECHANIC 04/07/2024 10:07 PM PLUMBING MECHANIC us Valerie Reno MD LAB BLOOD ORDERABLES Fin al Result Performing Organization Address City/State/[facility] Co de Phone Number [facility] Department [place] [address] * Basic metabolic panel (04/07/2024 9:38 PM PLUMBING MECHANIC) Pathologist [facility] Sodium 143 135 - 145 mmol/L Potassium, pl 3.4 3.3 - 4.9 mmol/L [facility] Chloride 104 97 - 110 mmol/L [facility] CO2 29 22 - 32 mmol/L [facility] Anion gap 10 2 - 15 mmol/L [facility] BUN 6 6 - 25 mg/dL [facility] Creatinine 0.60 0.60 - 1.10 mg/dL [facility] Glucose 88 70 - 199 mg/dL [facility] Comment: Interpretive Data Fasting glucose >/= 126 mg/dl is diagnostic for diabetes. Fasting is defined as no caloric intake for at least 8 hours. Fasting glucose between 100 mg/dl to 125 mg/dl is diagnostic of prediabetes. In a patient with classic symptoms of hyperglycemia or hyperglycemic crisis, a random glucose >/= 200 mg/dl is diagnostic for diabetes. In the absence of unequivocal hyperglycemia, results should be confirmed by repeat testing. The classification and Diagnosis of Diabetes Diabetes Care 202; 46: S19-S40. Current interpretive data was last revised 2022. Calcium 9.2 8.5 - 10.3 mg/dL [facility] Blood 04/07/2024 9:38 PM PLUMBING MECHANIC 04/07/2024 10:07 PM PLUMBING MECHANIC us Valerie Reno MD LAB BLOOD ORDERABLES Fin al Result [facility] Department [place] [address] * (ABNORMAL) Urinalysis reflex to microscopic and culture Urine (04/07/2024 7:52 AM PLUMBING MECHANIC) Color, ur Straw Yellow Clarity, ur Clear Clear [facility] Specific gravity, ur 1.009 1.003 - 1.030 [facility] pH, urine 6.0 [facility] Comment: Interpretive Data U rine pH is affected by diet, medications, systemic acid-base disturbances, and renal tubular function. pH may affect urinary stone formation. For example, urine pH below 6.0 may help reduce the tendency for calcium phosphate stones and pH greater than 6.0 may reduce the tendency for uric acid stone formation. Source: [facility] [employer] Current Interpretive Data was last revised on 2017 Protein, ur ql Negative Negative [facility] Glucose, ur ql Negative Negative [facility] Ketones, ur Negative Negative [facility] Bilirubin, ur Negative Negative [facility] Blood, ur Negative Negative [facility] Urobilinogen, ur <2.0 <2.0 mg/dL [facility] Nitrite, ur Positive(A) Negative [facility] Leukocyte esterase, ur Negative Negative [facility] UA reflex comment Reflex to microscopic UA will be performed. [facility] Urine 04/07/2024 7:52 AM PLUMBING MECHANIC 04/07/2024 8:03 AM PLUMBING MECHANIC us Valerie Reno MD LAB MICROBIOLOGY - GENER AL ORDERABLES Final Result Performing Organization Address City/[facility] Co de Phone Number [facility] Department [place] [address] * (ABNORMAL) Urinalysis, microscopic only (04/07/2024 7:52 AM PLUMBING MECHANIC) WBC, ur 6-10(A) 0 - 5 /HPF RBC, ur 0-2 0 - 2 /HPF [facility] Bacteria, ur Trace(A) [facility] Mucous, ur Present(A) [facility] Culture Reflex Comment Reflex conditions for urine culture (WBC >10) not met. [facility] Urine 04/07/2024 7:52 AM PLUMBING MECHANIC 04/07/2024 8:03 AM PLUMBING MECHANIC us Valerie Reno MD LAB URINE ORDERABLES Fin al Result Performing Organization Address [facility] Co de Phone Number [facility] Department [place] [address] * eGFR (04/06/2024 9:35 PM PLUMBING MECHANIC) eGFR >90 >=60 mL/min/1. 73 m2 Comment: Interpretive Data Reference Interval Normal >/= 90 mL/min/1.73m2 Mildly decreased* 60 - 89 mL/min/1.73m2 Mildly to moderately decreased 45 - 59 mL/min/1.73m2 Moderately to severely decreased 30 - 44 mL/min/1.73m2 Severely decreased 15 - 29 mL/min/1.73m2 Kidney Failure < 15 mL/min/1.73m2 *Relative to young adult level Estimated glomerular filtration rate is determined by the 2020 CKD-EPI equation recommended by the National Kid[employer] (A Unifying Approach to GFR Estimation: Recommendations of the NKF-ASK Task Force on Reassessing the Inclusion of Race in Diagnosing Kidney Disease, JASN 202). The CKD-EPI equation should not be used for patients with unstable renal function and has not been validated in children and those over 70. Current interpretive data was last reviewed 2020. Blood 04/06/2024 9:35 PM PLUMBING MECHANIC 04/06/2024 10:20 PM PLUMBING MECHANIC us Valerie Reno MD LAB BLOOD ORDERABLES Fin al Result [facility] Department [place] [address] * (ABNORMAL) Differential, auto (04/06/2024 9:35 PM PLUMBING MECHANIC) Neutrophil abs 7.2(H) 1.5 - 6.5 K/cumm Imm gran abs 0.0 0.0 - 0.1 K/cumm [facility] Lymphocyte abs 2.0 0.8 - 3.3 K/cumm [facility] Monocyte abs 0.6 0.2 - 0.8 K/cumm [facility] Eosinophil abs 0.1 0.0 - 0.5 K/cumm [facility] Basophil abs 0.0 0.0 - 0.1 K/cumm [facility] Neutrophil pct 73.2 % [facility] Comment: Interpretive Data Percent cell count reference ranges are not reported, since discordance with absolute values may lead to misinterpretation of CBC data. Current Interpretive Data was last revised on 2017. Imm gran pct 0.3 % [facility] Comment: Interpretive Data Percent cell count reference ranges are not reported, since discordance with absolute values may lead to misinterpretation of CBC data. Current Interpretive Data was last revised on 2017. Lymphocyte pct 19.9 % [facility] Comment: Interpretive Data Percent cell count reference ranges are not reported, since discordance with absolute values may lead to misinterpretation of CBC data. Current Interpretive Data was last revised on 2017. Monocyte pct 5.6 % [facility] Comment: Interpretive Data Percent cell count reference ranges are not reported, since discordance with absolute values may lead to misinterpretation of CBC data. Current Interpretive Data was last revised on 2017. Eosinophil pct 0.8 % [facility] Comment: Interpretive Data Percent cell count reference ranges are not reported, since discordance with absolute values may lead to misinterpretation of CBC data. Current Interpretive Data was last revised on 2017. Basophil pct 0.2 % [facility] Comment: Interpretive Data Percent cell count reference ranges are not reported, since discordance with absolute values may lead to misinterpretation of CBC data. Current Interpretive Data was last revised on 2017. Blood 04/06/2024 9:35 PM PLUMBING MECHANIC 04/06/2024 10:20 PM PLUMBING MECHANIC us Valerie Reno MD LAB BLOOD ORDERABLES Fin al Result [facility] Department [place] [address] * (ABNORMAL) CBC with auto differential (04/06/2024 9:35 PM PLUMBING MECHANIC) WBC 9.8 3.8 - 9.9 K/cumm Hgb 13.8 11.9 - 15.5 g/dL [facility] Comment:Result may be inaccu rate due to increased plasma turbidity. Consider redraw. Hct 36.6 35.6 - 45.5 % [facility] Plt 295 150 - 400 K/cumm [facility] MPV 8.7(L) 9.1 - 12.3 fL [facility] RBC 4.21 3.90 - 5.20 M/cumm [facility] MCV 86.9 81.3 - 96.4 fL [facility] MCH 32.8 27.1 - 33.3 pg [facility] Comment:Result may be inaccu rate due to increased plasma turbidity. Consider redraw. MCHC 37.7(H) 32.3 - 35.7 g/dL [facility] Comment:Result may be inaccu rate due to increased plasma turbidity. Consider redraw. RDW CV 11.2 11.1 - 14.9 % [facility] RDW SD 35.6(L) 35.7 - 48.1 fL [facility] NRBC abs 0.00 0.00 - 0.01 K/cumm [facility] Blood 04/06/2024 9:35 PM PLUMBING MECHANIC 04/06/2024 10:20 PM PLUMBING MECHANIC Valerie Reno MD LAB BLOOD ORDERABLES Fin al Result [facility] Department [place] [address] * (ABNORMAL) Basic metabolic panel (04/06/2024 9:35 PM PLUMBING MECHANIC) Sodium 142 135 - 145 mmol/L Potassium, pl 3.7 3.3 - 4.9 mmol/L [facility] Chloride 107 97 - 110 mmol/L [facility] CO2 26 22 - 32 mmol/L [facility] Anion gap 9 2 - 15 mmol/L [facility] BUN 6 6 - 25 mg/dL [facility] Creatinine 0.46(L) 0.60 - 1.10 mg/dL [facility] Glucose 104 70 - 199 mg/dL [facility] Comment: Interpretive Data Fasting glucose >/= 126 mg/dl is diagnostic for diabetes. Fasting is defined as no caloric intake for at least 8 hours. Fasting glucose between 100 mg/dl to 125 mg/dl is diagnostic of prediabetes. In a patient with classic symptoms of hyperglycemia or hyperglycemic crisis, a random glucose >/= 200 mg/dl is diagnostic for diabetes. In the absence of unequivocal hyperglycemia, results should be confirmed by repeat testing. The classification and Diagnosis of Diabetes Diabetes Care 2021; 46: S19-S40. Current interpretive data was last revised 2022. Calcium 9.0 8.5 - 10.3 mg/dL [facility] Blood 04/06/2024 9:35 PM PLUMBING MECHANIC 04/06/2024 10:20 PM PLUMBING MECHANIC Valerie Reno MD LAB BLOOD ORDERABLES Fin al Result [facility] Department [place] [address] * XR Abdomen Ap 1 Vw (04/06/2024 2:16 PM PLUMBING MECHANIC) Anatomical Region Laterality Modality Body, Abdomen N/A Digital Radiogra phy 04/07/2024 8:46 AM PLUMBING MECHANIC Impressions 04/07/2024 8:54 AM PLUMBING MECHANIC Mild gaseous distention of the stomach. The bowel gas pattern is otherwise within normal limits. Cholecystectomy clips. Clear lung bases. Dictated by: Ross Hollis MD PHD The radiology attending physician has personally reviewed this study, and had reviewed and/or edited this written report and agrees with it. Electronically signed by: Clayton Cedillo M.D. Narrative 04/07/2024 8:54 AM PLUMBING MECHANIC EXAMINATION: Abdomen, one view. HISTORY: Concern for bowel obstruction COMPARISON: CT dated 04/04/2024 Procedure Note Clayton Cedillo MD - 04/07/2024 EXAMINATION: Abdomen, one view. HISTORY: Concern for bowel obstruction COMPARISON: CT dated 04/04/2024 IMPRESSION: Mild gaseous distention of the stomach. The bowel gas pattern is otherwise within normal limits. Cholecystectomy clips. Clear lung bases. Dictated by: Ross Hollis MD PHD The radiology attending physician has personally reviewed this study, and had reviewed and/or edited this written report and agrees with it. Electronically signed by: Clayton Cedillo M.D. Valerie Reno MD IMG XR PROCEDURES Final Result * XR Chest 1 View (04/06/2024 2:16 PM PLUMBING MECHANIC) Anatomical Region Laterality Modality Body, Chest N/A Digital Radiogra phy 04/06/2024 3:14 PM PLUMBING MECHANIC Impressions 04/06/2024 3:14 PM PLUMBING MECHANIC No prior chest radiographs are available for comparison. The lungs are well-expanded and clear of infiltrates or effusions. There is no pneumothorax. Curvilinear lucency projecting over the left upper chest is likely a skin fold. The film should be repeated for confirmation Electronically signed by: Ollie Dash M.D. Narrative 04/06/2024 3:14 PM PLUMBING MECHANIC EXAMINATION: 1 view chest radiograph Procedure Note Ollie Dash MD - 04/06/2024 EXAMINATION: 1 view chest radiograph IMPRESSION: No prior chest radiographs are available for comparison. The lungs are well-expanded and clear of infiltrates or effusions. There is no pneumothorax. Curvilinear lucency projecting over the left upper chest is likely a skin fold. The film should be repeated for confirmation Electronically signed by: Ollie Dash M.D. Valerie Reno MD IMG XR PROCEDURES Final Result * ECG 12 lead (04/06/2024 1:12 PM PLUMBING MECHANIC) Ventricular Rate EKG/Min 59 BPM [facility] Atrial Rate 59 BPM [facility] ME-Interval (MSEC) 134 ms [facility] QRS-Interval (MSEC) 76 ms [facility] QT-Interval (MSEC) 410 ms [facility] QTc 405 ms [facility] P [place] 44 degrees [facility] R [place] 11 degrees [facility] T [place] 54 degrees [facility] Diagnosis Sinus bradycardia Nonspecific T wave abnormality Abnormal ECG When compared with ECG of 19-MAY-2016 19:09, Nonspecific T wave abnormality, worse in Lateral leads Confirmed by JANA MEJIA M.D ([id number]) on 04/07/2024 3:30:32 PM [facility] 04/06/2024 1:12 PM PLUMBING MECHANIC 04/07/2024 3:30 PM PLUMBING MECHANIC Valerie Reno MD ECG ORDERABLES Final Re sult [facility] * (ABNORMAL) Drugs of Abuse Screen, Urine with Reflex Confirmation (04/06/2024 2:05 AM PLUMBING MECHANIC) Pathologist [facility] Amphetamine, ur Not Detected CutOff 500ng/mL Comment: Interpretive Data - Amphetamines: Samples containing greater than 500 ng/mL d-methamphetamine or other cross-reacting amphetamine compounds are reported as positive. Amphetamine immunoassays are subject to significant false positive rates due to cross-reactivity of non-amphetamine drugs. Confirmatory testing required for definitive results. Current Interpretive Data was last reviewed 2022. Barbiturates, ur Not Detected CutOff 200ng/mL [facility] Comment: Interpretive Data - Barbiturates: Samples containing greater than 200 ng/mL secobarbital or other cross-reacting barbiturate compounds are reported as positive. False positive and false negative results are possible. Confirmatory testing required for definitive results. Current Interpretive Data was last reviewed 2022. Benzodiazepines, ur Screen Positive, presumptive (A) CutOff 100ng/[facility] Comment: Interpretive Data - Benzodiazepines: Samples containing greater than 100 ng/mL nordiazepam or other cross-reacting compounds are reported as positive. False positive and false negative results are possible. Confirmatory testing required for definitive results. Current Interpretive Data was last reviewed 2022. Cannabinoids, ur Not Detected CutOff 50 ng/mL [facility] Comment: Interpretive Data - Cannabinoids: Samples containing greater than 50 ng/mL delta-9 THC -COOH or other cross- reacting compounds are reported as positive. False positive and false negative results are possible. Confirmatory testing required for definitive results. Current Interpretive Data was last reviewed 2022. Cocaine, ur Not Detected CutOff 150ng/mL [facility] Comment: Interpretive Data - Cocaine: Samples containing greater than 150 ng/mL benzoylecgonine or other cross- reacting compounds are reported as positive. False positive and false negative results are possible. Confirmatory testing required for definitive results. Current Interpretive Data was last reviewed 2022. Fentanyl, Ur Not Detected CutOff 5 ng/mL [facility] Comment: Interpretive Data - Fentanyl: Samples containing greater than 5 ng/mL norfentanyl, fentanyl, or other cross-reacting fentanyl compounds are reported as positive. False positive and false negative results are possible. Confirmatory testing required for definitive results. Current Interpretive Data was last reviewed 2023. Methadone, ur Not Detected CutOff 300ng/mL [facility] Comment: Interpretive Data - Methadone: Samples containing greater than 300 ng/mL d,l-methadone or other cross-reacting compounds are reported as positive. False positive and false negative results are possible. Confirmatory testing required for definitive results. Current Interpretive Data was last reviewed 2022. Opiates, ur Not Detected CutOff 300ng/mL [facility] Comment: Interpretive Data - Opiates: Samples containing greater than 300 ng/mL morphine or other cross-reacting compounds are reported as positive. False positive and false negative results are possible. Confirmatory testing required for definitive results. Current Interpretive Data was last reviewed 2022. Oxycodone, ur Not Detected CutOff 100ng/mL [facility] Comment: Interpretive Data - Oxycodone: Samples containing greater than 100 ng/mL oxycodone or other cross-reacting compounds are reported as positive. False positive and false negative results are possible. Confirmatory testing required for definitive results. Current Interpretive Data was last reviewed 2022. Phencyclidine, ur Not Detected CutOff 25 ng/mL [facility] Comment: Interpretive Data - Phencyclidine: Samples containing greater than 25 ng/mL phencyclidine or other cross-reacting compounds are reported as positive. False positive and false negative results are possible. Confirmatory testing required for definitive results. Current Interpretive Data was last reviewed 2022. Urine Creatinine 123 mg/dL [facility] Comment: Interpretive Data Urine Creatinine: < 10 mg/dL is extremely dilute = or > 10 but < 20 mg/dL is dilute = or > 20 mg/dL is normal Current Interpretive Data was last revised on 2017. Urine 04/06/2024 2:05 AM PLUMBING MECHANIC 04/06/2024 3:26 AM PLUMBING MECHANIC Narrative [facility] - 04/06/2024 3:59 AM PLUMBING MECHANIC Drug of Abuse screening is performed by immunoassay for medical purposes only. This is not to be used for Pain Management purposes. If Detected, confirmation testing will be performed for Amphetamines, Cocaine, Fentanyl, Methadone, Opiates, Oxycodone or Phencyclidine. us Valerie Reno MD LAB URINE ORDERABLES Fin al Result [facility] [place] [address] * HIV 1/2 Antibody plus p24 Antigen Blood (04/05/2024 9:47 PM PLUMBING MECHANIC) [facility] HIV 1/2 ab + p24 ag Nonreactive Nonreactive Comment:Nonreactive for HIV- 1 antigen and HIV-1/HIV-2 antibodies. No laboratory evidence of HIV infection. If acute HIV infection is suspected, consider testing for HIV-1 RNA. Current interpretive data was last revised on 21. Blood 04/05/2024 9:47 PM PLUMBING MECHANIC 04/05/2024 10:21 PM PLUMBING MECHANIC Valerie Reno MD LAB MICROBIOLOGY - GENER AL ORDERABLES Final Result Performing Organization Address City/[facility] [place] [address] * RPR Blood (04/05/2024 9:47 PM PLUMBING MECHANIC) [facility] RPR Nonreactive Nonreactive Blood 04/05/2024 9:47 PM PLUMBING MECHANIC 04/05/2024 10:21 PM PLUMBING MECHANIC Valerie Reno MD LAB MICROBIOLOGY - GENER AL ORDERABLES Final Result Performing Organization Address City/[facility] [place] [address] * Blood culture Blood (04/05/2024 9:47 PM PLUMBING MECHANIC) [facility] Report Final Report: No growth Blood 04/05/2024 9:47 PM PLUMBING MECHANIC 04/05/2024 10:06 PM PLUMBING MECHANIC Narrative [facility] - 04/10/2024 7:00 AM PLUMBING MECHANIC Collection->Peripheral 1. Blood cultures are incubated for 4 days on a continuously monitored blood culture system. The first report of a negative culture is issued within 24 hours of receipt of the specimen in the laboratory. 2. Positive culture results are reported as soon as they are detected. 3. The most important factor for detection of microbes in the setting of bloodstream infection is the volume of blood submitted for culture. Failure to collect an optimal blood volume can result in false negative blood cultures. 4. For pediatric patients, the recommended blood volume to collect follows a weight based strategy. See the electronic test catalog for collection instructions. 5. For positive blood cultures, a rapid molecular test may be performed for organism identification using the gabriela ePlex blood culture identification panel for gram positive (BCID-GP) and gram negative (BCID-GN) organisms. This nucleic acid amplification test detects microbial DNA in positive blood culture broth. This assay has been cleared by the [place] Food and Drug Administration and its performance characteristics have been verified by the [facility]. For questions about this culture, contact the Microbiology Laboratory at [phone]. Interpretive data was last revised on 23. Valerie Reno MD LAB MICROBIOLOGY - GENER AL ORDERABLES Final Result Performing Organization Address City/[facility]/ZIP Co de Phone Number [facility] Department [place] [address] * TSH (04/05/2024 9:47 PM PLUMBING MECHANIC) Thyroid Stimulating Hormone 1.26 0.30 - 4.20 mcIUnit/mL Blood 04/05/2024 9:47 PM PLUMBING MECHANIC 04/05/2024 10:21 PM PLUMBING MECHANIC Result [facility] Valerie Reno MD LAB BLOOD ORDERABLES Fin al Result [facility] Department [place] [address] * Vitamin B12 (04/05/2024 9:47 PM PLUMBING MECHANIC) Vitamin B12 521 230 - 1,250 pg/mL Blood 04/05/2024 9:47 PM PLUMBING MECHANIC 04/05/2024 10:21 PM PLUMBING MECHANIC Result [facility] Valerie Reno MD LAB BLOOD ORDERABLES Fin al Result [facility] [place] [address] * CT Abdomen Pelvis W Contrast (04/04/2024 12:22 PM PLUMBING MECHANIC) Anatomical Region Laterality Modality Body N/A Computed Tomogra phy 04/04/2024 12:4 7 PM PLUMBING MECHANIC Impressions 04/04/2024 12:47 PM PLUMBING MECHANIC 1. Possible thickening/edema of the anal canal, poorly evaluated on CT due to redundant soft tissues in this area but could reflect postsurgical changes of reported hemorrhoidectomy and/or postoperative inflammation. Small amount of stool is seen in the rectum with no evidence of colonic obstruction. Electronically signed by: Lorena Ferro M.D. Narrative 04/04/2024 12:47 PM PLUMBING MECHANIC EXAMINATION: CT of the abdomen and pelvis with intravenous contrast. TECHNIQUE: Computed axial tomographic images of the abdomen and pelvis were obtained with intravenous contrast according to standard protocol. There were no immediate complications after the intravenous administration of 100 cc optiray 350. COMPARISON: None HISTORY: 54F w/ PMHx Parkinson's, spastic pelvic floor syndrome, grade III hemorrhoids s/p rigid proctoscopy, excisional hemorrhoidectomy and pelvic floor botox on 03/31 presenting with post-operative pain. Has had significant SS pain with bloody/mucous liquid stool, w/ inc pain and difficulty passing gas or stool in the last 24 hours. Has had baseline abdominal pain for over a year (LLQ radiating to RLQ) that is worse. Additional sxs include no UOP since 5pm last night and bloody discharge yesterday from anus w/ associated lightheadedness and fall x1 in the bathroom. FINDINGS: Small cyst or pneumatocele seen in the right lower lobe measuring 1.6 cm peripherally on series 3 image 22. Otherwise, lung bases unremarkable. Small hiatal hernia. Coronary artery calcifications are present without pericardial effusion Mild thickening of the adrenals. Surgically absent gallbladder. The spleen, pancreas, and kidneys appear normal An external urinary catheter decompresses the urinary bladder. There is no extraluminal gas or fluid surrounding this catheter. Atherosclerotic calcification of the abdominal aorta without aneurysm. No abdominal or pelvic lymphadenopathy is seen. No omental nodularity. Surgically absent appendix. No bowel obstruction. Stool seen in the colon. There is possible thickening/edema of the anal canal, which is overall poorly evaluated on CT due to redundant soft tissues in this area but there is no large well organized fluid collection in the ischio rectal or ischio anal fossa. No soft tissue levy-anal or perineal gas is present. No suspicious osseous lesion Procedure Note Lorena Ferro MD - 04/04/2024 EXAMINATION: CT of the abdomen and pelvis with intravenous contrast. TECHNIQUE: Computed axial tomographic images of the abdomen and pelvis were obtained with intravenous contrast according to standard protocol. There were no immediate complications after the intravenous administration of 100 cc optiray 350. COMPARISON: None HISTORY: 54F w/ PMHx Parkinson's, spastic pelvic floor syndrome, grade III hemorrhoids s/p rigid proctoscopy, excisional hemorrhoidectomy and pelvic floor botox on 03/31 presenting with post-operative pain. Has had significant SS pain with bloody/mucous liquid stool, w/ inc pain and difficulty passing gas or stool in the last 24 hours. Has had baseline abdominal pain for over a year (LLQ radiating to RLQ) that is worse. Additional sxs include no UOP since 5pm last night and bloody discharge yesterday from anus w/ associated lightheadedness and fall x1 in the bathroom. FINDINGS: Small cyst or pneumatocele seen in the right lower lobe measuring 1.6 cm peripherally on series 3 image 22. Otherwise, lung bases unremarkable. Small hiatal hernia. Coronary artery calcifications are present without pericardial effusion Mild thickening of the adrenals. Surgically absent gallbladder. The spleen, pancreas, and kidneys appear normal An external urinary catheter decompresses the urinary bladder. There is no extraluminal gas or fluid surrounding this catheter. Atherosclerotic calcification of the abdominal aorta without aneurysm. No abdominal or pelvic lymphadenopathy is seen. No omental nodularity. Surgically absent appendix. No bowel obstruction. Stool seen in the colon. There is possible thickening/edema of the anal canal, which is overall poorly evaluated on CT due to redundant soft tissues in this area but there is no large well organized fluid collection in the ischio rectal or ischio anal fossa. No soft tissue levy-anal or perineal gas is present. No suspicious osseous lesion IMPRESSION: 1. Possible thickening/edema of the anal canal, poorly evaluated on CT due to redundant soft tissues in this area but could reflect postsurgical changes of reported hemorrhoidectomy and/or postoperative inflammation. Small amount of stool is seen in the rectum with no evidence of colonic obstruction. Electronically signed by: Lorena Ferro M.D. us Nell Flores MD IMG CT PROCEDURES [place] l Result * (ABNORMAL) Urinalysis reflex to microscopic and culture Urine (04/04/2024 12:06 PM PLUMBING MECHANIC) Color, ur Straw Yellow Clarity, ur Clear Clear [facility] Specific gravity, ur 1.006 1.003 - 1.030 [facility] pH, urine 7.5 [facility] Comment: Interpretive Data U rine pH is affected by diet, medications, systemic acid-base disturbances, and renal tubular function. pH may affect urinary stone formation. For example, urine pH below 6.0 may help reduce the tendency for calcium phosphate stones and pH greater than 6.0 may reduce the tendency for uric acid stone formation. Source: [facility] Current Interpretive Data was last revised on 2017 Protein, ur ql Negative Negative [facility] Glucose, ur ql Negative Negative [facility] Ketones, ur 1+(A) Negative [facility] Bilirubin, ur Negative Negative [facility] Blood, ur Negative Negative [facility] Urobilinogen, ur <2.0 <2.0 mg/dL [facility] Nitrite, ur Negative Negative [facility] Leukocyte esterase, ur Negative Negative [facility] UA reflex comment Reflex conditions for microscopic UA and culture not met. [facility] Urine 04/04/2024 12:0 6 PM PLUMBING MECHANIC 04/04/2024 12:15 PM PLUMBING MECHANIC Narrative [facility] - 04/04/2024 12:19 PM PLUMBING MECHANIC If patient unable to urinate, straight cath us Kel Pierson MD LAB MICROBIOLOGY - GENERAL ORDERABLES Final Result [facility] Department [place] [address] * POCT creatinine (04/04/2024 10:44 AM PLUMBING MECHANIC) [facility] Creatinine POC 0.7 0.6 - 1.1 mg/dL Blood 04/04/2024 10:4 4 AM PLUMBING MECHANIC 04/04/2024 10:44 AM PLUMBING MECHANIC Kel Pierson MD LAB POCT ORDERABLES - AMANDA CE Final Result [facility] Department [place] [address] * Respiratory pathogen panel Nasopharyngeal (04/04/2024 10:40 AM PLUMBING MECHANIC) [facility] Influenza A RNA Not Detected Not Detected Influenza B RNA Not Detected Not Detected [facility] RSV RNA Not Detected Not Detected [facility] COVID-19 RNA Not Detected Not Detected [facility] Coronavirus 229E RNA Not Detected Not Detected [facility] Coronavirus HKU1 RNA Not Detected Not Detected [facility] Coronavirus NL63 RNA Not Detected Not Detected [facility] Coronavirus OC43 RNA Not Detected Not Detected [facility] Adenovirus DNA Not Detected Not Detected [facility] Metapneumovirus RNA Not Detected Not Detected [facility] Rhinovirus/Enterov irus RNA Not Detected Not Detected [facility] Parainfluenza 1 RNA Not Detected Not Detected [facility] Parainfluenza 2 RNA Not Detected Not Detected [facility] Parainfluenza 3 RNA Not Detected Not Detected [facility] Parainfluenza 4 RNA Not Detected Not Detected [facility] B. pertussis DNA Not Detected Not Detected [facility] B. parapertussis DNA Not Detected Not Detected [facility] C. pneumoniae DNA Not Detected Not Detected [facility] M. pneumoniae DNA Not Detected Not Detected [facility] Nasopharyngeal 04/04/2024 10 :40 AM PLUMBING MECHANIC 04/04/2024 10:52 AM PLUMBING MECHANIC Narrative [facility] - 04/04/2024 12:14 PM PLUMBING MECHANIC Is the Patient experiencing symptoms consistent with COVID?->Unknown Surveillance testing for transplant patient?->No Interpretive Data The [employer] FilmArray Respiratory Panel (RP2.1) assay is a multiplexed real-time PCR based nucleic acid test capable of simultaneous qualitative detection and identification of multiple respiratory viral and bacterial nucleic acids, including SARS Coronavirus 2 (the causative agent of COVID-19). The following bacteria, viruses and virus subtypes can be identified using the FilmArray RP2.1 assay: Bordetella pertussis, Bordetella parapertussis, Chlamydia pneumoniae, Mycoplasma pneumoniae, Adenovirus, SARS Coronavirus 2, seasonal coronaviruses (Coronavirus HKU1, Coronavirus NL63, Coronavirus 229E, and Coronavirus OC43), Influenza A, Influenza A subtype H1, Influenza A subtype H3, Influenza A subtype 2009 H1, Influenza B, Metapneumovirus, Parainfluenza 1, Parainfluenza 2, Parainfluenza 3, Parainfluenza 4, RSV, Rhinovirus/Enterovirus. Due to the genetic similarity between human Rhinovirus and Enterovirus, the FilmArray RP2.1 assay cannot reliably differentiate them. Coronavirus OC43 may cross-react with some isolates of Coronavirus HKU1. A dual positive result may be due to cross-reactivity or may indicate a co- infection. The detection and identification of specific viral and bacterial nucleic acids from individuals exhibiting signs and symptoms of a respiratory infection aids in the diagnosis of respiratory infection if used in conjunction with other clinical and epidemiological information. The results of this test should not be used as the sole basis for diagnosis, treatment, or other management decisions. Negative results in the setting of a respiratory illness may be due to infection with pathogens that are not detected by this test. Positive results do not rule out infection/co-infection with other organisms. The agent(s) detected by the FilmArray RP2.1 may not be the definite cause of disease. Additional testing (lab, imaging, etc.) may be necessary when evaluating a patient with possible respiratory tract infection. The FilmArray RP2.1 assay has FDA clearance for testing of LUBE ATTENDANT swabs. The performance of additional specimen types has been assessed by the performing laboratory. The performance characteristics of this assay have been determined by [facility] Molecular Infectious Disease Laboratory. Current interpretive data was last revised on 21. Kel Pierson MD LAB MICROBIOLOGY - GENERAL ORDERABLES Final Result Performing Organization Address City/[facility] Co de Phone Number [facility] [place] [place] [address] * POCT lactate (04/04/2024 10:24 AM PLUMBING MECHANIC) Lactate POC i-STAT 1.2 0.7 - 2.0 mmol/L Blood 04/04/2024 10:2 4 AM PLUMBING MECHANIC 04/04/2024 10:24 AM PLUMBING MECHANIC Kel Pierson MD LAB POCT ORDERABLES - AMANDA CE Final Result Performing Organization Address [facility] Co de Phone Number [facility] [place] [address] * POCT lactate (04/04/2024 10:00 AM PLUMBING MECHANIC) Lactate POC i-STAT 1.5 0.7 - 2.0 mmol/L Blood 04/04/2024 10:0 0 AM PLUMBING MECHANIC 04/04/2024 10:00 AM PLUMBING MECHANIC Kel Pierson MD LAB POCT ORDERABLES - AMANDA CE Final Result Performing Organization Address [facility] Co de Phone Number [facility] [place] [address] * eGFR (04/04/2024 9:50 AM PLUMBING MECHANIC) eGFR >90 >=60 mL/min/1. 73 m2 Comment: Interpretive Data Reference Interval Normal >/= 90 mL/min/1.73m2 Mildly decreased* 60 - 89 mL/min/1.73m2 Mildly to moderately decreased 45 - 59 mL/min/1.73m2 Moderately to severely decreased 30 - 44 mL/min/1.73m2 Severely decreased 15 - 29 mL/min/1.73m2 Kidney Failure < 15 mL/min/1.73m2 *Relative to young adult level Estimated glomerular filtration rate is determined by the 2020 CKD-EPI equation recommended by the National Kidney Foundation (A Unifying Approach to GFR Estimation: Recommendations of the NKF-ASK Task Force on Reassessing the Inclusion of Race in Diagnosing Kidney Disease, JASN 2020). The CKD-EPI equation should not be used for patients with unstable renal function and has not been validated in children and those over 70. Current interpretive data was last reviewed 2020. Blood 04/04/2024 9:50 AM PLUMBING MECHANIC 04/04/2024 10:11 AM PLUMBING MECHANIC us Hernesto Marquez MD LAB BLOOD ORDERABLES F inal Result [facility] Department [place] [address] * Differential, auto (04/04/2024 9:50 AM PLUMBING MECHANIC) Neutrophil abs 6.1 1.5 - 6.5 K/cumm Imm gran abs 0.0 0.0 - 0.1 K/cumm [facility] Lymphocyte abs 1.3 0.8 - 3.3 K/cumm [facility] Monocyte abs 0.4 0.2 - 0.8 K/cumm [facility] Eosinophil abs 0.1 0.0 - 0.5 K/cumm [facility] Basophil abs 0.0 0.0 - 0.1 K/cumm [facility] Neutrophil pct 77.0 % [facility] Comment: Interpretive Data Percent cell count reference ranges are not reported, since discordance with absolute values may lead to misinterpretation of CBC data. Current Interpretive Data was last revised on 2017. Imm gran pct 0.3 % [facility] Comment: Interpretive Data Percent cell count reference ranges are not reported, since discordance with absolute values may lead to misinterpretation of CBC data. Current Interpretive Data was last revised on 2017. Lymphocyte pct 16.7 % [facility] Comment: Interpretive Data Percent cell count reference ranges are not reported, since discordance with absolute values may lead to misinterpretation of CBC data. Current Interpretive Data was last revised on 2017. Monocyte pct 5.1 % [facility] Comment: Interpretive Data Percent cell count reference ranges are not reported, since discordance with absolute values may lead to misinterpretation of CBC data. Current Interpretive Data was last revised on 2017. Eosinophil pct 0.6 % [facility] Comment: Interpretive Data Percent cell count reference ranges are not reported, since discordance with absolute values may lead to misinterpretation of CBC data. Current Interpretive Data was last revised on 2017. Basophil pct 0.3 % [facility] Comment: Interpretive Data Percent cell count reference ranges are not reported, since discordance with absolute values may lead to misinterpretation of CBC data. Current Interpretive Data was last revised on 2017. Blood 04/04/2024 9:50 AM PLUMBING MECHANIC 04/04/2024 10:11 AM PLUMBING MECHANIC Kel Pierson MD LAB BLOOD ORDERABLES Final Result [facility] Department [place] [address] * (ABNORMAL) CBC with auto differential (04/04/2024 9:50 AM PLUMBING MECHANIC) WBC 7.9 3.8 - 9.9 K/cumm Hgb 14.6 11.9 - 15.5 g/dL [facility] Hct 40.7 35.6 - 45.5 % [facility] Plt 290 150 - 400 K/cumm [facility] MPV 8.8(L) 9.1 - 12.3 fL [facility] RBC 4.61 3.90 - 5.20 M/cumm [facility] MCV 88.3 81.3 - 96.4 fL [facility] MCH 31.7 27.1 - 33.3 pg [facility] MCHC 35.9(H) 32.3 - 35.7 g/dL [facility] RDW CV 11.3 11.1 - 14.9 % [facility] RDW SD 36.2 35.7 - 48.1 fL [facility] NRBC abs 0.00 0.00 - 0.01 K/cumm [facility] Blood 04/04/2024 9:50 AM PLUMBING MECHANIC 04/04/2024 10:11 AM PLUMBING MECHANIC Kel Pierson MD LAB BLOOD ORDERABLES Final Result [facility] Department [place] [address] * (ABNORMAL) Comprehensive metabolic panel (04/04/2024 9:50 AM PLUMBING MECHANIC) Sodium 142 135 - 145 mmol/L Potassium, pl 3.9 3.3 - 4.9 mmol/L [facility] Chloride 102 97 - 110 mmol/L [facility] CO2 29 22 - 32 mmol/L [facility] Anion gap 11 2 - 15 mmol/L [facility] BUN 9 6 - 25 mg/dL [facility] Creatinine 0.71 0.60 - 1.10 mg/dL [facility] Glucose 101 70 - 199 mg/dL [facility] Comment: Interpretive Data Fasting glucose >/= 126 mg/dl is diagnostic for diabetes. Fasting is defined as no caloric intake for at least 8 hours. Fasting glucose between 100 mg/dl to 125 mg/dl is diagnostic of prediabetes. In a patient with classic symptoms of hyperglycemia or hyperglycemic crisis, a random glucose >/= 200 mg/dl is diagnostic for diabetes. In the absence of unequivocal hyperglycemia, results should be confirmed by repeat testing. The classification and Diagnosis of Diabetes Diabetes Care 2021; 46: S19-S40. Current interpretive data was last revised 2022. Calcium 9.7 8.5 - 10.3 mg/dL [facility] Bilirubin, total 0.9 0.1 - 1.2 mg/dL [facility] Protein, pl 7.0 6.5 - 8.5 g/dL [facility] Albumin 4.1 3.5 - 5.0 g/dL [facility] Alk phos 63 40 - 130 Units/L [facility] ALT 6(L) 7 - 45 Units/L [facility] AST 12 10 - 45 Units/L [facility] Blood 04/04/2024 9:50 AM PLUMBING MECHANIC 04/04/2024 10:11 AM PLUMBING MECHANIC Kel Pierson MD LAB BLOOD ORDERABLES Final Result [facility] Department [place] [address] * Surgical pathology (03/31/2024 7:30 AM PLUMBING MECHANIC) Tissue specimen (specimen) (Skin - Cyst / Tag / Debridement) 03/31/2024 7:30 AM PLUMBING MECHANIC Tissue specimen (specimen) (Hemorrhoid/Anal Tag) 03/31/2024 7:33 AM PLUMBING MECHANIC Narrative PATHOLOGY WC - 04/02/2024 4:02 PM PLUMBING MECHANIC EPIC results best viewed via link to PDF [facility] Shaylee Garcia Laboratory [place] [address] Note to Patients: This report may contain a detailed description of human tissue sent by a health care provider to the laboratory for pathologic evaluation. The content of this report is essential for diagnosis and may provide important critical findings. This information may be unfamiliar to patients to review without a medical professional present. It is advised that the patient review this report in the presence of a health care provider who can answer questions and explain the details. SURGICAL PATHOLOGY REPORT FINAL Patient Name: BARBARA GRIFFIN Gender: F : 1970 (Age: 54) Address: [address] [place], [place] [id number] Hospital #: [id number] Taken:03/31/2024 Received:03/31/2024 Reported: 04/02/2024 Patient Type: [facility] EP SAME Client [facility] Service: Surgery Location: Physician(s): Hallie Kirby MD Diagnosis: A. Skin and soft tissue, anal skin tag , excision - Fibroepithelial polyp B. Skin and soft tissue, hemorrhoid , excision - Hemorrhoids fw/04/02/2024 14:31 By this signature, I attest that the above diagnosis is based upon my personal examination of the slides(and/or other material indicated in the diagnosis). Domigno Hartman M.D. Report Electronically Reviewed and Signed Out By Domingo Hartman M.D. 04/02/2024 16:02:02 Microscopic Description and Comment: Microscopic examination substantiates the above cited diagnosis. Sebas Marc M.D. History: The patient is a 54-year-old woman with hemorrhoids and spastic pelvic floor syndrome. Operative procedure: EUA rectum rigid proctoscope, hemorrhoidectomy, and injection Botox sphincter. Specimen(s) Received: A: Anal skin tag B: Hemorrhoids Gross Description: Received in two formalin jars labeled with the patient's identifiers. A. Labeled anal skin tag is a single piece of pedunculated samuels-pink skin measuring 0.4 x 0.4 x 0.7 cm. Inked and bisected Labeled A1. Jar 0. B. Labeled hemorrhoids are two pedunculated pieces of samuels-pink mucosa and skin measuring 3.0 x 1.8 x 0.8 cm. Sectioned to show unremarkable hemorrhagic cut surface. Labeled B1. Jar 1. cnew/03/31/2024 10:36 PA(s): PAULA Lyles By this signature, I attest that the above diagnosis is based upon my personal examination of the slides(and/or other material). Addenda/Procedures Microscopic slide review and interpretation for this case was performed at [facility], Department of Surgical Pathology, [address] [facility] [place], [place] [id number], [place] [address] CLIA # [id number] The performance characteristics of some immunohistochemical stains, fluorescence in-situ hybridization tests and immunophenotyping by flow cytometry cited in this report (if any) were determined by the Surgical Pathology and Flow Cytometry Departments at [facility] as part of an ongoing quality assurance engineer program and in compliance with federally mandated regulations drawn from the Clinical Laboratory Improvement Act of 1988 (CLIA '88). Some of these tests rely on the use of analyte specific reagents and are subject to specific labeling requirements by the US Food and Drug Administration. Such diagnostic tests may only be performed in a facility that is certified by the Department of Health and Human Services as a high complexity laboratory under CLIA '88. The FDA has determined that such clearance or approval is not necessary. This test is used for clinical purposes. It should not be regarded as investigational or for research. Nevertheless, federal rules concerning the medical use of analyte specific reagents require that the following disclaimer be attached to the report: This test was developed and its performance characteristics determined by the Surgical Pathology and Flow Cytometry Departments of [facility]. It has not been cleared or approved by the U. S. Food and Drug Administration. IMAGES AND SCANNED DOCUMENTS, IF INCLUDED, ONLY VIEWABLE IN PDF VERSION OF REPORT Keon Jasso MD LAB PATHOLOGY ORDERABLES Fin al Result Performing Organization Address [facility] Co de Phone Number PATHOLOGY [facility] [phone] * POC ISTAT (03/31/2024 6:35 AM PLUMBING MECHANIC) [facility] K POC 4.2 3.3 - 4.9 mmol/L Comment: Interpretive Data This method is not able to assess for hemolysis, which may falsely increase potassium concentrations. If further testing is needed to evaluate this result, consider in-laboratory plasma potassium. Current Interpretive Data was last revised on 2021. POC Device Number [id number] JORDYN HUA POC Performer [id number] JORDYN HUA Blood 03/31/2024 6:35 AM PLUMBING MECHANIC 03/31/2024 6:35 AM PLUMBING MECHANIC Keon Jasso MD LAB BLOOD ORDERABLES Final R esult Performing Organization Address City/[facility]/ZIP Co de Phone Number [facility] [address] [facility] [place] [address] * Serum Hepatitis panel (04/18/2015 6:59 AM PLUMBING MECHANIC) [facility] HCV ab Negative NEG HISTORICAL RESULTS Comment: Interpretive Data If confirmation is required, call Laboratory Customer Service to request sample to be sent to [facility] for Hepatitis C Virus (HCV) RNA Detection and Quantitation by Real-Time Reverse Confectionery Cooker-PCR (RT-PCR). Current interpretive data was last revised on 2011 HBV core ab, IgM Negative NEG HIS TORICAL RESULTS Comment: Interpretive Data If test is reported as Equivocal, new sample should be drawn for testing. Current interpretive data was last revised on 2007. HAV ab, IgM Negative NEG HISTORIC AL RESULTS Comment: Interpretive Data If test is reported as Equivocal, new sample should be drawn in two weeks for testing. Current interpretive data was last revised on 2007. HBV surface ag Negative NEG HISTO RICAL RESULTS Serum 04/18/2015 6:59 AM PLUMBING MECHANIC Shant Delgado LAB BLOOD ORDERABLES Final Resul t HISTORICAL RESULTS * COLONOSCOPY REPORT (04/08/2015) Anatomical Region Laterality Modality Other Narrative 04/08/2015 Ordered by an unspecified provider. Historical Provider GI PROCEDURE ORDERABLES F inal Result from Last 3 Months or Most Recently Relevant to Health Maintenance Insurance [place] Advance Directives For more information, please contact: [phone] * Full Code (Latest Code Status on File) Date Activated Date Inactivated Comments 04/05/2024 1:41 AM 04/11/2024 6:52 PM Care Teams Consular Officer Relationship Specialty Start Date End Date Miguel Ángel Oliva MD [address] [place] [id number] PCP - General Internal Medicine 10/04/22 Juan Carlos Bangura MD Referring Physician Neurology 09/12/22 Keon Jasso MD [phone] [place] [address] Surgeon Colon and Rectal Surgery 05/24/23
--- OUTSIDE RECORDS SUMMARY | 2024-06-28 11:09 | XMS_ITS | Encounter Summary ---
Author Organization [facility] Address [address] [place] [address] Care Team Providers Care Syrup Blender Name Role Phone Carlyn Mcmahon MD Primary Care Provider [phone] Miguel Ángel Oliva MD Primary Care Provider [phone] Encounter Details Date Type Department Care Team (Late st Contact Info) Description 02/01/2021 Prep for Procedure [facility] Day [facility] [address] [place] [address] Mireya Cardenas MD [address] [place] [address] Social History Tobacco Use Types Packs/Day Years [...] Sex Assigned at Female 04/24/2024 2:19 PM STEEL UNLOADER Legal Sex Female 4:25 PM CDT Gender Identity Female 05/09/2024 11:14 AM CDT Sexual Orientation Straight 05/09/2024 11 :14 AM CDT COVID-19 Exposure Response Date Recorded In the last month, have you been in contact with someone who was confirmed or suspected to have Coronavirus / COVID-19? No / Unsure 02/04/2021 9:43 AM STEEL UNLOADER documented as of this encounter Plan of Treatment Upcoming Encounters Date Type Department Care Team (Late st Contact Info) Description 06/30/2024 10:40 AM CDT Office Visit [facility] Multispecialty Care - [place] [address] [address] [address] [place] [address] Miguel Ángel Oliva MD [address] [facility] [address] [place] [address] documented as of this encounter Results * PRE-SURGICAL/PRE-PROCEDURE CORONAVIRUS (COVID 19) (02/04/2021 9:48 AM STEEL UNLOADER) SPEC DESCRIPTION NASAL 02/05/20 9:[address] [facility] CORONAVIRUS SARS COV 2 PCR (RESP) NEGATIVE NEGATIVE 02/05/2021 2:31 PM [facility] Comment: THE SARS-CoV-2 TEST HAS BEEN AUTHORIZED BY THE FDA UNDER AN EUA FOR USE BY AUTHORIZED LABORATORIES. PERFORMED BY NUCLEIC ACID AMPLIFICATION PCR FIRST TEST NO 02/04/2021 9:43 AM [facility] EMPLOYED IN HEALTHCARE NO 02/04/2021 9:43 AM [facility] SYMPTOMATIC DEFINED BY CDC NO 02/04/2021 9:43 AM [facility] HOSPITALIZATION STATUS NO 02/04/2021 9:43 AM [facility] PATIENT IN ICU NO 02/04/2021 9:43 AM STEEL UNLOADER [facility] RESIDENT OF [facility] NO 02/04/2021 9:43 AM [facility] NOT 02/04/2021 9:43 AM [facility] NASAL STRUCTURE / Unknown 02/04/2021 9:48 AM STEEL UNLOADER Mireya Cardenas MD MICROBIOLOGY - GENERAL ORDER BELLO Final Result [facility] (B[facility] [address] [place] [address], [place] [phone] [facility] [address] [place] [address], [place] [phone] documented in this encounter Visit Diagnoses Diagnosis Pre-op testing- Primary Preoperative examination, unspecified Annual physical exam- Primary Routine general medical examination at a health care facility General medical exam Unspecified general medical examination Drug therapy Encounter for long-term (current) use of other medications documented in this encounter Additional Health Concerns Infection Onset Date Last Indicated Resolved Time COVID-19 Rule Out 02/04/2021 02/04/2021 02/05/2021 2:31 PM STEEL UNLOADER Assessment Noted Time PHQ-9 Depression Total Score: 0 12/02/19 1:30 PM CDT documented as of this encounter Care Teams Syrup Blender Relationship Specialty Start Date End Date Carlyn Mcmahon MD [address] [place] [address] PCP - General FAMILY PRACTICE 06/24/20 06/15/21 Miguel Ángel Oliva MD [address] [facility] [address] [place] [address] PCP - General INTERNAL MEDICINE 06/16/21 Nish Hunter Referring Physician 12/04/23 documented as of this encounter
--- OUTSIDE RECORDS SUMMARY | 2024-06-28 11:09 | XMS_ITS | Encounter Summary ---
Author Organization [facility] Address Critical access hospital[address] [place] [address] Care Team Providers Care Cfo Name Role Phone Miguel Ángel Oliva MD Primary Care Provider [phone] Encounter Details Date Type Department Care Team (Late st Contact Info) Description 03/28/2023 [employer] Message Enc [facility] Medical Group Multispecialty Care - [address] [place] [address] Cat[place], [facility] Provider Referral Social History Tobacco Use Types Packs/Day Years Used Date Smoking Tobacco: Every Day Cigarettes 0.3 20 Smokeless Tobacco: Never Comments:1 cig a day after l unch; counseled by Dr. Oliva. Alcohol Use Standard Drinks/Week Comments Never 0 (1 standard drink = 0.6 oz pur e alcohol) [facility] Utilities Answer Date Recorded In the past 12 months has e electric, gas, oil, or water [employer] threatened to shut off services in your [...] Never 03/13/2023 How often do you attend judaism or protestant serv ices? Never 03/13/2023 Do you belong to any clubs o r organizations such as judaism groups, unions, fraternal or athletic groups, or [...] Answer Date Recorded Patient Health Questionnaire-2 Score 4 09/15/2022 [facility] - [...] place to sleep or slept in a long term (including now)? No 03/13/2023 Comments No Sex and Gender Information Value Date Recorded Sex Assigned at Female 04/24/2024 2:19 PM ELECTRONIC PUBLICATIONS SPECIALIST Legal Sex Female 4:25 PM CDT Gender [...] Date Author Status Yes 03/13/2023 6:00 PM ELECTRONIC PUBLICATIONS SPECIALIST Kasia Bourne RN Active documented in this encounter Plan of Treatment Upcoming Encounters Date Type Department Care Team (Late st Contact Info) Description 06/30/2024 10:40 AM CDT Office Visit [facility]ispecialty [facility] [address] [address] [address] [place] [address] Miguel Ángel Oliva MD [address] [place] [address] documented as of this encounter Visit Diagnoses Not on filedocumented in this encounter Additional Health Concerns Assessment Noted Time PHQ-9 Depression Total Score: 17 023 2:21 PM CDT documented as of this encounter Care Teams Cfo Relationship Specialty Start Date End Date Miguel Ángel Oliva MD [address] [place] [address] PCP - General INTERNAL MEDICINE 06/16/21 Nish Hunter Referring Physician 12/04/23 documented as of this encounter
--- OUTSIDE RECORDS SUMMARY | 2024-06-28 11:09 | XMS_ITS | Encounter Summary ---
Author Organization [facility] Address [facility] [place] [address] Care Team Providers Care Rubber And Pounder Name Role Phone Miguel Ángel Oliva MD Primary Care Provider [phone] Encounter Details Date Type Department Care Team (Latest Contact Info) Description 11/24/2022 Optinuityhart Message Enc [facility] Medical Group Multispecialty Care - [address] [address] [address] [place] [address] Miguel Á[place] [address] [place] [address] [address] [place], [place] [id number] Please schedule for your next appointment. Go online to get it done. Social History Tobacco Use Types Packs/Day Years Used Date Smoking Tobacco: Every Day Cigarettes 0.3 20 Smokeless Tobacco: Never Comments:1 cig a day after l unch Alcohol Use Standard Drinks/Week Comments Never 0 (1 standard drink = 0.6 oz pur e alcohol) AUDIT-C Answer Date Recorded Q1: How often do you have a drink containing alc ohol? Never 06/24/2020 Average Number of Drinks Not on file 021 Frequency of Binge Drinking Not on file 07/2020 PHQ-2 Answer Date Recorded Patient Health Questionnaire-2 Score 4 09/15/2022 Comments No Sex and Gender Information Value Date Recorded Sex Assigned at Female 04/24/2024 2:19 PM MACHINE MAINTENANCE TECHNICIAN Legal Sex Female 4:25 PM CDT Gender Identity Female 05/09/2024 11:14 AM CDT Sexual Orientation Straight 05/09/2024 11 :14 AM CDT documented as of this encounter Plan of Treatment Upcoming Encounters Date Type Department Care Team (Late st Contact Info) Description 06/30/2024 10:40 AM CDT Office Visit [facility] Medical Group Multispecialty Care - [address] [address] [address] [place] [address] Miguel Ángel Oliva MD [facility] [address] [address] documented as of this encounter Visit Diagnoses Not on filedocumented in this encounter Additional Health Concerns Assessment Noted Time PHQ-9 Depression Total Score: 17 023 2:21 PM CDT documented as of this encounter Care Teams Rubber And Pounder Relationship Specialty Start Date End Date Miguel Ángel Oliva MD [address] [place] [address] PCP - General INTERNAL MEDICINE 06/16/21 Nish Hunter Referring Physician 12/04/23 documented as of this encounter
--- OUTSIDE RECORDS SUMMARY | 2024-06-28 11:09 | XMS_ITS | Encounter Summary ---
Author Organization [facility] Address [facility] [place] [address] Care Team Providers Care Blower And Compressor Assembler Name Role Phone Miguel Ángel Oliva MD Primary Care Provider [phone] Encounter Details Date Type Department Care Team (Late st Contact Info) Description 05/25/[address] [facility] [address] [place] [address] Catracho [facility] Provider Todays Physical Therapy Appointment 05/25/23 Social History Tobacco Use Types Packs/Day Years Used Date Smoking Tobacco: Every Day Cigarettes 0.3 20 Passive Smoke Exposure: Never Smokeless Tobacco: Never Comments:1 cig a day after l unch; counseled by Dr. Oliva. Alcohol Use Standard Drinks/Week Comments Never 0 (1 standard drink = 0.6 oz pur e alcohol) [facility] Utilities Answer Date Recorded In the past 12 months has [employer], gas, oil, or water [employer] threatened to shut off services in your [...] Never 03/13/2023 How often do you attend hinduism or pentecostal serv ices? Never 03/13/2023 Do you belong to any clubs o r organizations such as hinduism groups, unions, fraternal or athletic groups, or [...] Recorded Patient Health Questionnaire-2 Score 4 09/15/2022 [facility] - Occupational Stress Questionnaire Answer Date Recorded [...] place to sleep or slept in a residential (including now)? No 03/13/2023 Comments No Sex and Gender Information Value Date Recorded Sex Assigned at Female 04/24/2024 2:19 PM CLINICAL MARKETING MANAGER Legal Sex Female 4:25 PM CDT Gender [...] Author Status No 03/13/2023 6:00 PM Kasia aRmírez RN Active * Do you have serious [...] Date Author Status Yes 03/13/2023 6:00 PM CLINICAL MARKETING MANAGER Kasia Bourne RN Active documented in this encounter Plan of Treatment Upcoming Encounters Date Type Department Care Team (Late st Contact Info) Description 06/30/2024 10:40 AM CDT Office Visit [facility] Medical Group Multispecialty [facility] - [address] [address] [address] [place] [address] Miguel Ángel Oliva MD [address] [place] [address] documented as of this encounter Visit Diagnoses Not on filedocumented in this encounter Additional Health Concerns Assessment Noted Time PHQ-9 Depression Total Score: 17 023 2:21 PM CDT documented as of this encounter Care Teams Blower And Compressor Assembler Relationship Specialty Start Date End Date Miguel Ángel Oliva MD [address] [place] [address] PCP - General INTERNAL MEDICINE 06/16/21 Nish Hunter Referring Physician 12/04/23 documented as of this encounter
--- OUTSIDE RECORDS SUMMARY | 2024-06-28 11:09 | XMS_ITS | Encounter Summary ---
Author Organization [facility] Address [address] [place] [address] Care Team Providers Care Staff Combat Information Center Officer Name Role Phone Miguel Ángel Oliva MD Primary Care Provider [phone] Encounter Details Date Type Department Care Team (Late st Contact Info) Description 08/05/2021 Colored Solar Message Enc [facility] Multispecialty Care - [address] [place], [place] [address] [employer] Solutionsopalcharity: water, [facility] Provider antibiotic Social History Tobacco Use Types Packs/Day Years Used Date Smoking Tobacco: Every Day Cigarettes Smokeless Tobacco: Never Comments:smoking 1 stick per [...] 3, please move on to questions 3-9 4 07/20/2021 Comments No Sex and Gender Information Value Date Recorded Sex Assigned at Female 04/24/2024 2:19 PM TURNTABLE OPERATOR Legal Sex Female 4:25 PM CDT Gender Identity Female 05/09/2024 11:14 AM CDT Sexual Orientation Straight 05/09/2024 11 :14 AM CDT COVID-19 Exposure Response Date Recorded In the last 10 days, have yo u been in contact with someone who was confirmed or suspected to have Coronavirus/COVID-19? No / Unsure 07/20/2021 11:19 AM CDT documented as of this encounter Plan of Treatment Upcoming Encounters Date Type Department Care Team (Late st Contact Info) Description 06/30/2024 10:40 AM CDT Office Visit [facility] Multispecialty Care - [address] [address] [address] [place] [address] Miguel Á[place] [address] [place] [address] documented as of this encounter Visit Diagnoses Not on filedocumented in this encounter Additional Health Concerns Assessment Noted Time PHQ-9 Depression Total Score: 12 022 11:55 AM CDT documented as of this encounter Care Teams Staff Combat Information Center Officer Relationship Specialty Start Date End Date Miguel Ángel Oliva MD [address] [place] [address] PCP - General INTERNAL MEDICINE 06/16/21 Nish Hunter Referring Physician 12/04/23 documented as of this encounter
--- OUTSIDE RECORDS SUMMARY | 2024-06-28 11:09 | XMS_ITS | Encounter Summary ---
Author Organization [facility] Address [address] [place] [address] Care Team Providers Care Spinning Lathe Operator Automatic Name Role Phone Miguel Ángel Oliva MD Primary Care Provider [phone] Encounter Details Date Type Department Care Team (Late st Contact Info) Description 06/20/2022 [email or web address] Message Enc [facility] Medical Group Multispecialty Care - [address] [place], [place] [id number] Catracho, [facility] Provider Lab R Social History Tobacco Use Types Packs/Day Years Used Date Smoking Tobacco: Every Day Cigarettes 0.3 20 Smokeless Tobacco: Never Comments:3 cigs per day; cou nseled by Dr. Oliva Alcohol Use Standard Drinks/Week Comments Never 0 (1 standard drink = 0.6 oz pur e alcohol) AUDIT-C Answer Date Recorded Q1: How often do you have a drink containing alc ohol? Never 06/24/2020 Average Number of Drinks Not on file 021 Frequency of Binge Drinking Not on file 07/2020 PHQ-2 Answer Date Recorded Patient Health Questionnaire-2 Score 1 06/19/2022 Comments No Sex and Gender Information Value Date Recorded Sex Assigned at Female 04/24/2024 2:19 PM CLAY THROWER Legal Sex Female 4:25 PM CDT Gender Identity Female 05/09/2024 11:14 AM CDT Sexual Orientation Straight 05/09/2024 11 :14 AM CDT COVID-19 Exposure Response Date Recorded In the last 10 days, have yo u been in contact with someone who was confirmed or suspected to have Coronavirus/COVID-19? No / Unsure 06/19/2022 10:17 AM CDT documented as of this encounter Plan of Treatment Upcoming Encounters Date Type Department Care Team (Late st Contact Info) Description 06/30/2024 10:40 AM CDT Office Visit [facility] Medical Group Multispecialty Care - [address] [address] [address] [place] [address] Miguel Ángel Oliva MD [address] [place] [address] documented as of this encounter Visit Diagnoses Not on filedocumented in this encounter Additional Health Concerns Assessment Noted Time PHQ-9 Depression Total Score: 20 022 11:52 AM CDT documented as of this encounter Care Teams Spinning Lathe Operator Automatic Relationship Specialty Start Date End Date Miguel Ángel Oliva MD [address] [place] [address] PCP - General INTERNAL MEDICINE 06/16/21 Nish Hunter Referring Physician 12/04/23 documented as of this encounter
--- OUTSIDE RECORDS SUMMARY | 2024-06-28 11:09 | XMS_ITS | Clinical Summary ---
Author Organization [place] [id number] [facility] Address [address] [place] [address] Care Team Providers Care [employer] Name Role Phone Juan Carlos Bangura MD Unavailable [phone] Miguel Ángel Oliva MD Primary Care Provider Keon Jasso MD Unavailable [phone] Allergies Active Allergy Reactions Criticality Noted Date [...] 5 Assessment & Plan (04/05/2024 4:14 PM WEDDING PHOTOGRAPHER): - Continue home PPI equivalent HLD (hyperlipidemia) 04/05/2024 Assessment & Plan (04/05/2024 4:14 PM WEDDING PHOTOGRAPHER): - Continue home Crestor HTN (hypertension) 04/05/2024 Assessment & Plan (04/05/2024 4:14 PM WEDDING PHOTOGRAPHER): - Continue home triamterene hydrochlorothiazide. MARISOL (generalized anxiety disorder) 04/05/2024 Assessment & Plan (04/05/2024 4:14 PM WEDDING PHOTOGRAPHER): History of generalized anxiety disorder/depression - Continue home Xanax as needed. Urinary retention 04/05/2024 Assessment & Plan (04/08/2024 4:30 PM WEDDING PHOTOGRAPHER): Likely related to recent botox injections to [...] 04/05/2024 Assessment & Plan (04/08/2024 4:31 PM WEDDING PHOTOGRAPHER): Main complaint is dizziness. She has a [...] 04/04/2024 Assessment & Plan (04/08/2024 4:32 PM WEDDING PHOTOGRAPHER): Presented with postoperative perianal pain the setting [...] testing for now as it would not policy change clerk. She continues to have significant wearing off. [...] encounter Assessment & Plan (04/05/2024 4:14 PM WEDDING PHOTOGRAPHER): - Continue on carbidopa levodopa Assessment & [...] testing for now as it would not policy change clerk. We previously discussed that there are no [...] testing for now as it would not policy change clerk. I also suspect there is a functional overlay to some of her symptoms and exam findings. We discussed that there are no definitive diagnostic tests for PD, but a skin biopsy might be supportive and provide more clarity if she is interested (but would again likely not policy change clerk). She is not interested at this time. [...] 03/17/2015 Assessment & Plan (04/05/2024 4:06 PM WEDDING PHOTOGRAPHER): History of Meniere's disease - Continue home triamterene hydrochlorothiazide - Meclizine as needed Resolved Problems Problem Noted Date Diagnosed Date Resolved Date Anal fissure 05/24/2023 03/06/2024 Encounters Date Type Department Care Team Description 06/24/2024 11:30 AM CDT Office Visit [facility] Movement Disorders [address] [place] [address] 7th [place] [address] Samantha Roberson, MARISOL Parkinson's disease, unspecified whether dyskinesia present, unspecified whether manifestations fluctuate (HCC) (Primary Dx); Cervical dystonia 06/23/2024 Orders Only [facility] Movement Disorders [address] [facility] 6th [place] [address] [place] [address] Nish Hunter MD PhD Cervical dystonia 06/17/2024 9:20 AM CDT Procedure visit [facility] Movement Disorders [address] [facility] 6th [place] [address] [place] [address] Nish Hunter MD PhD Cervical dystonia (Primary Dx); Parkinson's disease with dyskinesia and fluctuating manifestations (HCC) 06/09/2024 Orders Only [facility] Movement Disorders [address] [facility] 6th [place] [address] [place] [address] Nish Hunter MD PhD Parkinson's disease with dyskinesia and fluctuating manifestations (HCC) (Primary Dx) 05/08/2024 Telephone [facility] Scheduling [address] [place] [address] Greg Sajikenoza 05/05/2024 Telephone [facility] Scheduling [address] [place] [address] Nish Hunter MD PhD Scheduling Appointments 05/01/2024 3:15 PM CDT Office Visit [facility] Surgery [address] [facility] 2nd Floor [address] [place] [address] Keon Jasso MD Hemorrhoids, unspecified hemorrhoid type (Primary Dx) 04/04/2024 9:26 AM WEDDING PHOTOGRAPHER - 04/11/2024 2:52 PM WEDDING PHOTOGRAPHER Hospital Encounter [facility] [address] [place] [address] Kel Pierson MD Lacy, Timur Copeland MD Ma, MD David Linn Natalia, MD Choi, Cheuk Ho Jeffrey, MD Acute post-operative pain (Primary Dx); Other constipation; Urinary retention Discharge Disposition: Discharge to an Rehab facility 03/31/2024 7:15 AM WEDDING PHOTOGRAPHER - 03/31/2024 8:00 [facility] [id number] [place] [address] Keon Jasso MD EXAM UNDER ANESTHESIA - RECTUM, RIGID PROCTOSCOPE 03/31/2024 7:06 AM WEDDING PHOTOGRAPHER Anesthesia Event [facility] [id number] [address] BLUNT, [place] [address] Randall Arriaga MD Wiethuchter, Kelli P., CLINICAL EDUCATION MANAGER 03/31/2024 5:40 AM WEDDING PHOTOGRAPHER - 03/31/2024 9:24 AM WEDDING PHOTOGRAPHER Hospital Encounter [facility] [id number] BLUNT, [place] [address] Keon Jasso MD Hemorrhoids, unspecified hemorrhoid type; Spastic pelvic floor syndrome Discharge Disposition: Discharge to home or self care from Last 3 Months Surgical History Surgery Date Site/Laterality Comments APPENDECTOMY ~1993 HYSTERECTOMY 02/19/2015 - 02/19/2016 Hysterectomy - (Added by Conv) CHOLECYSTECTOMY 02/07/2021 ESOPHAGOGASTRODUODENOSCOPY 12/08/2001 HEMORRHOID SURGERY 10/13/2020 polyp removed COLONOSCOPY W/ POLYPECTOMY 08/04/2020 EXCISIONAL HEMORRHOIDECTOMY 03/31/2024 with botox injection Medical History Medical History Date Comments History of endometriosis History of endometriosis - (Added by Conv) Painful micturition Painful urin ation - (Added by TW Conv) Menopausal and perimenopausal disorder Postmenopausal symptoms - (Added by TW Conv) Sensorineural hearing loss Asymm etrical sensorineural hearing loss - (Added by TW Conv) Hypertension Depression Anxiety PONV (postoperative nausea and vomiting) Parkinson disease (HCC) Parkinso n's Disease Dxd ~2021--Currently treated with Sinemet Motion sickness +Car/boat sickne ss Meniere disease Vertigo Treated with mec lizine PRN Smoker Family History Medical History Relation Name Comments Colon cancer Father Family history of malignant neoplasm of colon - (Added by TW Conv) Hypertension Father Family history of hypertension - (Added by TW Conv) Skin cancer Father Family history of skin cancer - (Added by TW Conv) Tremor Father jitters Diabetes Mother Family history of diabetes mellitus - (Added by TW Conv) Heart disease Mother Family history of cardiac disorder - (Added by TW Conv) ALS Neg Hx Anesthesia problems Neg Hx Developmental delay Neg Hx Parkinsonism Neg Hx questionable sy mptoms in her mother (head twitch, balance) Seizures Neg Hx Relation Name Status Comments Father Mother Social History Tobacco [...] on file Legal Sex Female 7:08 AM WEDDING PHOTOGRAPHER Gender Identity Not on file Sexual Orientation Not on file Obstetrics History Last Filed Vital Signs Vital Sign Reading Time Taken Comments Blood Pressure 151/89 06/24/2024 11:26 AM CDT Pulse 56 06/24/2024 11:26 AM CDT Temperature 36.8 C (98.3 F) 06/24/2024 11:26 AM CDT Respiratory Rate 18 04/11/2024 8:17 AM WEDDING PHOTOGRAPHER Oxygen Saturation 100% 05/01/2024 2:44 PM CDT Inhaled Oxygen Concentration - - Weight 58.1 kg (128 lb) 06/24/2024 11:26 AM CDT Height 167.6 cm (5' 6 ) 06/24/2024 11:26 AM CDT Body Mass Index 20.66 06/24/2024 11:26 AM CDT Plan of Treatment Health Maintenance Due Date Last Done Comments Breast Cancer Screening-Mammogram 1969 Hepatitis B Screening 1987 Regular Well Visit/Exam 18-64 1987 Zoster Vaccine (1 of 2) 2019 Depression Screening 05/21/2024 05/22/2023 Influenza Vaccine (Season Ended) 2024 DTaP/Tdap/Td Vaccine (2 - Td or Tdap) 02/19/2025 02/19/2015 Colon Cancer Screening-Colonoscopy 04/08/20252015 Hepatitis C Screening Completed 04/18/2015 Pneumococcal vaccine <65 Aged Out No longer eligible based on patient's age to complete this topic Procedures Procedure Name Priority Date/Time Associated Diagnosis Comments EGFR Routine 04/07/2024 9:38 PM WEDDING PHOTOGRAPHER BASIC METABOLIC PANEL Routine 04/07/2024 9:38 PM WEDDING PHOTOGRAPHER URINALYSIS, MICROSCOPIC ONLY Routine 04/07/2024 7:52 AM WEDDING PHOTOGRAPHER URINALYSIS AND REFLEX TO MICROSCOPIC AND CULTURE Routine 04/07/2024 7:52 AM WEDDING PHOTOGRAPHER EGFR Routine 04/06/2024 9:35 PM WEDDING PHOTOGRAPHER DIFFERENTIAL AUTO Routine 04/06/2024 9:3 5 PM WEDDING PHOTOGRAPHER CBC WITH AUTO DIFFERENTIAL Routine 04/06/2024 9:35 PM WEDDING PHOTOGRAPHER BASIC METABOLIC PANEL Routine 04/06/2024 9:35 PM WEDDING PHOTOGRAPHER XR ABDOMEN AP 1 VIEW IP Routine 04/06/2024 2:16 PM WEDDING PHOTOGRAPHER XR CHEST 1 VIEW IP Routine 04/06/2024 2:16 PM WEDDING PHOTOGRAPHER ECG 12-LEAD STAT 04/06/2024 1:12 PM WEDDING PHOTOGRAPHER DRUGS OF ABUSE SCREEN, URINE WITH REFLEX CONFIRMATION Routine 04/06/2024 2:05 AM WEDDING PHOTOGRAPHER TSH Routine 04/05/2024 9:47 PM WEDDING PHOTOGRAPHER VITAMIN B12 Routine 04/05/2024 9:47 PM WEDDING PHOTOGRAPHER RPR Routine 04/05/2024 9:47 PM WEDDING PHOTOGRAPHER HIV 1/2 ANTIBODY PLUS P24 ANTIGEN Routine 04/05/2024 9:47 PM WEDDING PHOTOGRAPHER BLOOD CULTURE Routine 04/05/2024 9:[address] ABDOMEN PELVIS W CONTRAST ED 04/04/2024 12:22 PM WEDDING PHOTOGRAPHER URINALYSIS AND REFLEX TO MICROSCOPIC AND CULTURE STAT 04/04/2024 12:06 PM WEDDING PHOTOGRAPHER POCT CREATININE - DEVICE Routine 04/04/2024 10:44 AM WEDDING PHOTOGRAPHER RESPIRATORY PATHOGEN PANEL STAT 04/04/2024 10:40 AM WEDDING PHOTOGRAPHER POCT LACTATE - DEVICE Routine 04/04/2024 10:24 AM WEDDING PHOTOGRAPHER POCT LACTATE - DEVICE Routine 04/04/2024 10:00 AM WEDDING PHOTOGRAPHER EGFR STAT 04/04/2024 9:50 AM WEDDING PHOTOGRAPHER DIFFERENTIAL AUTO STAT 04/04/2024 9:5 0 AM WEDDING PHOTOGRAPHER COMPREHENSIVE METABOLIC PANEL STAT 04/04/2024 9:50 AM WEDDING PHOTOGRAPHER CBC WITH AUTO DIFFERENTIAL STAT 04/04/2024 9:50 AM WEDDING PHOTOGRAPHER SURGICAL PATHOLOGY Routine 03/31/2024 7: 30 AM WEDDING PHOTOGRAPHER Hemorrhoids, unspecified hemorrhoid type Spastic pelvic floor syndrome INJECTION BOTOX SPHINCTER 03/31/2024 7:11 AM WEDDING PHOTOGRAPHER Hemorrhoids, unspecified hemorrhoid type Spastic pelvic floor syndrome HEMORRHOIDECTOMY 03/31/2024 7:11 AM WEDDING PHOTOGRAPHER Hemorrhoids, unspecified hemorrhoid type Spastic pelvic floor syndrome EXAM UNDER ANESTHESIA - RECTUM 03/31/2024 7:11 AM WEDDING PHOTOGRAPHER Hemorrhoids, unspecified hemorrhoid type Spastic pelvic floor syndrome POC ISTAT Routine 03/31/2024 6:35 AM WEDDING PHOTOGRAPHER SERUM HEPATITIS PANEL Routine 04/18/2015 6:59 AM WEDDING PHOTOGRAPHER COLONOSCOPY REPORT 04/08/2015 from Last 3 Months or Most Recently Relevant to Health Maintenance Results * eGFR (04/07/2024 9:38 PM WEDDING PHOTOGRAPHER) eGFR >90 >=60 mL/min/1. 73 m2 Comment: [...] last reviewed 2020. Blood 04/07/2024 9:38 PM WEDDING PHOTOGRAPHER 04/07/2024 10:07 PM WEDDING PHOTOGRAPHER us Valerie Reno MD LAB BLOOD ORDERABLES Fin al Result [facility] [place] [address] * Basic metabolic panel (04/07/2024 9:38 PM WEDDING PHOTOGRAPHER) Pathologist [facility] Sodium 143 135 - 145 mmol/L Potassium, pl 3.4 3.3 - 4.9 mmol/L [facility] Chloride 104 97 - 110 mmol/L [facility] CO2 29 22 - 32 mmol/L [facility] Anion gap 10 2 - 15 mmol/L [facility] BUN 6 6 - 25 mg/dL [facility] Creatinine 0.60 0.60 - 1.10 mg/dL [facility] Glucose 88 70 - 199 mg/dL [facility] Comment: Interpretive Data Fasting glucose >/= 126 [...] 2022. Calcium 9.2 8.5 - 10.3 mg/dL [facility] Blood 04/07/2024 9:38 PM WEDDING PHOTOGRAPHER 04/07/2024 10:07 PM WEDDING PHOTOGRAPHER us Valerie Reno MD LAB BLOOD ORDERABLES Fin al Result [facility] [place] [address] * (ABNORMAL) Urinalysis reflex to microscopic and culture Urine (04/07/2024 7:52 AM WEDDING PHOTOGRAPHER) Color, ur Straw Yellow Clarity, ur Clear Clear [facility] Specific gravity, ur 1.009 1.003 - 1.030 [facility] pH, urine 6.0 [facility] Comment: Interpretive Data U rine pH is affected by diet, medications, systemic acid-base disturbances, and renal tubular function. pH may affect urinary stone formation. For example, urine pH below 6.0 may help reduce the tendency for calcium phosphate stones and pH greater than 6.0 may reduce the tendency for uric acid stone formation. Source: [facility] [employer] Current Interpretive Data was last revised on 2017 Protein, ur ql Negative Negative [facility] Glucose, ur ql Negative Negative [facility] Ketones, ur Negative Negative [facility] Bilirubin, ur Negative Negative [facility] Blood, ur Negative Negative [facility] Urobilinogen, ur <2.0 <2.0 mg/dL [facility] Nitrite, ur Positive(A) Negative [facility] Leukocyte esterase, ur Negative Negative [facility] UA reflex comment Reflex to microscopic UA will be performed. [facility] Urine 04/07/2024 7:52 AM WEDDING PHOTOGRAPHER 04/07/2024 8:03 AM WEDDING PHOTOGRAPHER Valerie Reno MD LAB MICROBIOLOGY - GENER AL ORDERABLES Final Result Performing Organization Address [facility] Co de Phone Number [facility] [place] [address] * (ABNORMAL) Urinalysis, microscopic only (04/07/2024 7:52 AM WEDDING PHOTOGRAPHER) WBC, ur 6-10(A) 0 - 5 /HPF RBC, ur 0-2 0 - 2 /HPF [facility] Bacteria, ur Trace(A) [facility] Mucous, ur Present(A) [facility] Culture Reflex Comment Reflex conditions for urine culture (WBC >10) not met. [facility] Urine 04/07/2024 7:52 AM WEDDING PHOTOGRAPHER 04/07/2024 8:03 AM WEDDING PHOTOGRAPHER Valerie Reno MD LAB URINE ORDERABLES Fin al Result Performing Organization Address [facility] de Phone Number [facility] [place] [address] * eGFR (04/06/2024 9:35 PM WEDDING PHOTOGRAPHER) eGFR >90 >=60 mL/min/1. 73 m2 Comment: [...] last reviewed 2020. Blood 04/06/2024 9:35 PM WEDDING PHOTOGRAPHER 04/06/2024 10:20 PM WEDDING PHOTOGRAPHER us Valerie Reno MD LAB BLOOD ORDERABLES Fin al Result [facility] [place] [address] * (ABNORMAL) Differential, auto (04/06/2024 9:35 PM WEDDING PHOTOGRAPHER) Neutrophil abs 7.2(H) 1.5 - 6.5 K/cumm Imm gran abs 0.0 0.0 - 0.1 K/cumm [facility] Lymphocyte abs 2.0 0.8 - 3.3 K/cumm [facility] Monocyte abs 0.6 0.2 - 0.8 K/cumm [facility] Eosinophil abs 0.1 0.0 - 0.5 K/cumm [facility] Basophil abs 0.0 0.0 - 0.1 K/cumm [facility] Neutrophil pct 73.2 % [facility] Comment: Interpretive Data Percent cell count reference ranges are not reported, since discordance with absolute values may lead to misinterpretation of CBC data. Current Interpretive Data was last revised on 2017. Imm gran pct 0.3 % [facility] Comment: Interpretive Data Percent cell count reference ranges are not reported, since discordance with absolute values may lead to misinterpretation of CBC data. Current Interpretive Data was last revised on 2017. Lymphocyte pct 19.9 % [facility] Comment: Interpretive Data Percent cell count reference ranges are not reported, since discordance with absolute values may lead to misinterpretation of CBC data. Current Interpretive Data was last revised on 2017. Monocyte pct 5.6 % [facility] Comment: Interpretive Data Percent cell count reference ranges are not reported, since discordance with absolute values may lead to misinterpretation of CBC data. Current Interpretive Data was last revised on 2017. Eosinophil pct 0.8 % [facility] Comment: Interpretive Data Percent cell count reference ranges are not reported, since discordance with absolute values may lead to misinterpretation of CBC data. Current Interpretive Data was last revised on 2017. Basophil pct 0.2 % [facility] Comment: Interpretive Data Percent cell count reference ranges are not reported, since discordance with absolute values may lead to misinterpretation of CBC data. Current Interpretive Data was last revised on 2017. Blood 04/06/2024 9:35 PM WEDDING PHOTOGRAPHER 04/06/2024 10:20 PM WEDDING PHOTOGRAPHER us Valerie Reno MD LAB BLOOD ORDERABLES Fin al Result [facility] [place] [address] * (ABNORMAL) CBC with auto differential (04/06/2024 9:35 PM WEDDING PHOTOGRAPHER) WBC 9.8 3.8 - 9.9 K/cumm Hgb 13.8 11.9 - 15.5 g/dL [facility] Comment:Result may be inaccu rate due to increased plasma turbidity. Consider redraw. Hct 36.6 35.6 - 45.5 % [facility] Plt 295 150 - 400 K/cumm [facility] MPV 8.7(L) 9.1 - 12.3 fL [facility] RBC 4.21 3.90 - 5.20 M/cumm [facility] MCV 86.9 81.3 - 96.4 fL [facility] MCH 32.8 27.1 - 33.3 pg [facility] Comment:Result may be inaccu rate due to increased plasma turbidity. Consider redraw. MCHC 37.7(H) 32.3 - 35.7 g/dL [facility] Comment:Result may be inaccu rate due to increased plasma turbidity. Consider redraw. RDW CV 11.2 11.1 - 14.9 % [facility] RDW SD 35.6(L) 35.7 - 48.1 fL [facility] NRBC abs 0.00 0.00 - 0.01 K/cumm [facility] Blood 04/06/2024 9:35 PM WEDDING PHOTOGRAPHER 04/06/2024 10:20 PM WEDDING PHOTOGRAPHER Valerie Reno MD LAB BLOOD ORDERABLES Fin al Result Performing Organization Address City/[facility]/ZIP Co de Phone Number [facility] [place] [address] * (ABNORMAL) Basic metabolic panel (04/06/2024 9:35 PM WEDDING PHOTOGRAPHER) Pathologist [facility] Sodium 142 135 - 145 mmol/L Potassium, pl 3.7 3.3 - 4.9 mmol/L [facility] Chloride 107 97 - 110 mmol/L [facility] CO2 26 22 - 32 mmol/L [facility] Anion gap 9 2 - 15 mmol/L [facility] BUN 6 6 - 25 mg/dL [facility] Creatinine 0.46(L) 0.60 - 1.10 mg/dL [facility] Glucose 104 70 - 199 mg/dL [facility] Comment: Interpretive Data Fasting glucose >/= 126 [...] 2022. Calcium 9.0 8.5 - 10.3 mg/dL [facility] Blood 04/06/2024 9:35 PM WEDDING PHOTOGRAPHER 04/06/2024 10:20 PM WEDDING PHOTOGRAPHER Valerie Reno MD LAB BLOOD ORDERABLES Fin al Result Performing Organization Address [facility] Co de Phone Number [facility] [place] [address] * XR Abdomen Ap 1 Vw (04/06/2024 2:16 PM WEDDING PHOTOGRAPHER) Anatomical Region Laterality Modality Body, Abdomen N/A Digital Radiogra phy 04/07/2024 8:46 AM WEDDING PHOTOGRAPHER Impressions 04/07/2024 8:54 AM WEDDING PHOTOGRAPHER Mild gaseous distention of the stomach. The bowel gas pattern is otherwise within normal limits. Cholecystectomy clips. Clear lung bases. Dictated by: Ross Hollis MD PHD The radiology attending physician has personally reviewed this study, and had reviewed and/or edited this written report and agrees with it. Electronically signed by: Clayton Cedillo M.D. Narrative 04/07/2024 8:54 AM WEDDING PHOTOGRAPHER EXAMINATION: Abdomen, one view. HISTORY: Concern for [...] XR Chest 1 View (04/06/2024 2:16 PM WEDDING PHOTOGRAPHER) Anatomical Region Laterality Modality Body, Chest N/A Digital Radiogra phy 04/06/2024 3:14 PM WEDDING PHOTOGRAPHER Impressions 04/06/2024 3:14 PM WEDDING PHOTOGRAPHER No prior chest radiographs are available for comparison. The lungs are well-expanded and clear of infiltrates or effusions. There is no pneumothorax. Curvilinear lucency projecting over the left upper chest is likely a skin fold. The film should be repeated for confirmation Electronically signed by: Ollie Dash M.D. Narrative 04/06/2024 3:14 PM WEDDING PHOTOGRAPHER EXAMINATION: 1 view chest radiograph Procedure Note [...] * ECG 12 lead (04/06/2024 1:12 PM WEDDING PHOTOGRAPHER) [facility] Ventricular Rate EKG/Min 59 BPM [facility] Atrial Rate 59 BPM [facility] ME-Interval (MSEC) 134 ms [facility] QRS-Interval (MSEC) 76 ms [facility] QT-Interval (MSEC) 410 ms [facility] QTc 405 ms [facility] P [place] 44 degrees [facility] R [place] 11 degrees [facility] T [place] 54 degrees [facility] Diagnosis Sinus bradycardia Nonspecific T wave abnormality Abnormal ECG When compared with ECG of 19-MAY-2016 19:09, Nonspecific T wave abnormality, worse in Lateral leads Confirmed by JANA MEJIA M.D ([id number]) on 04/07/2024 3:30:32 PM [facility] 04/06/2024 1:12 PM WEDDING PHOTOGRAPHER 04/07/2024 3:30 PM WEDDING PHOTOGRAPHER Valerie Reno MD ECG ORDERABLES Final Re sult [facility] * (ABNORMAL) Drugs of Abuse Screen, Urine with Reflex Confirmation (04/06/2024 2:05 AM WEDDING PHOTOGRAPHER) [facility] Amphetamine, ur Not Detected CutOff 500ng/mL Comment: Interpretive Data - Amphetamines: Samples containing greater than 500 ng/mL d-methamphetamine or other cross-reacting amphetamine compounds are reported as positive. Amphetamine immunoassays are subject to significant false positive rates due to cross-reactivity of non-amphetamine drugs. Confirmatory testing required for definitive results. Current Interpretive Data was last reviewed 2022. Barbiturates, ur Not Detected CutOff 200ng/mL [facility] Comment: Interpretive Data - Barbiturates: Samples containing greater than 200 ng/mL secobarbital or other cross-reacting barbiturate compounds are reported as positive. False positive and false negative results are possible. Confirmatory testing required for definitive results. Current Interpretive Data was last reviewed 2022. Benzodiazepines, ur Screen Positive, presumptive (A) CutOff 100ng/mL [facility] Comment: Interpretive Data - Benzodiazepines: Samples containing greater than 100 ng/mL nordiazepam or other cross-reacting compounds are reported as positive. False positive and false negative results are possible. Confirmatory testing required for definitive results. Current Interpretive Data was last reviewed 2022. Cannabinoids, ur Not Detected CutOff 50 ng/mL [facility] Comment: Interpretive Data - Cannabinoids: Samples containing greater than 50 ng/mL delta-9 THC -COOH or other cross- reacting compounds are reported as positive. False positive and false negative results are possible. Confirmatory testing required for definitive results. Current Interpretive Data was last reviewed 2022. Cocaine, ur Not Detected CutOff 150ng/mL [facility] Comment: Interpretive Data - Cocaine: Samples containing greater than 150 ng/mL benzoylecgonine or other cross- reacting compounds are reported as positive. False positive and false negative results are possible. Confirmatory testing required for definitive results. Current Interpretive Data was last reviewed 2022. Fentanyl, Ur Not Detected CutOff 5 ng/mL [facility] Comment: Interpretive Data - Fentanyl: Samples containing greater than 5 ng/mL norfentanyl, fentanyl, or other cross-reacting fentanyl compounds are reported as positive. False positive and false negative results are possible. Confirmatory testing required for definitive results. Current Interpretive Data was last reviewed 2023. Methadone, ur Not Detected CutOff 300ng/mL [facility] Comment: Interpretive Data - Methadone: Samples containing greater than 300 ng/mL d,l-methadone or other cross-reacting compounds are reported as positive. False positive and false negative results are possible. Confirmatory testing required for definitive results. Current Interpretive Data was last reviewed 2022. Opiates, ur Not Detected CutOff 300ng/mL [facility] Comment: Interpretive Data - Opiates: Samples containing greater than 300 ng/mL morphine or other cross-reacting compounds are reported as positive. False positive and false negative results are possible. Confirmatory testing required for definitive results. Current Interpretive Data was last reviewed 2022. Oxycodone, ur Not Detected CutOff 100ng/mL [facility] Comment: Interpretive Data - Oxycodone: Samples containing greater than 100 ng/mL oxycodone or other cross-reacting compounds are reported as positive. False positive and false negative results are possible. Confirmatory testing required for definitive results. Current Interpretive Data was last reviewed 2022. Phencyclidine, ur Not Detected CutOff 25 ng/mL [facility] Comment: Interpretive Data - Phencyclidine: Samples containing greater than 25 ng/mL phencyclidine or other cross-reacting compounds are reported as positive. False positive and false negative results are possible. Confirmatory testing required for definitive results. Current Interpretive Data was last reviewed 2022. Urine Creatinine 123 mg/dL [facility] Comment: Interpretive Data Urine Creatinine: < 10 mg/dL is extremely dilute = or > 10 but < 20 mg/dL is dilute = or > 20 mg/dL is normal Current Interpretive Data was last revised on 2017. Urine 04/06/2024 2:05 AM WEDDING PHOTOGRAPHER 04/06/2024 3:26 AM WEDDING PHOTOGRAPHER Narrative [facility] - 04/06/2024 3:59 AM WEDDING PHOTOGRAPHER Drug of Abuse screening is performed by immunoassay for medical purposes only. This is not to be used for Pain Management purposes. If Detected, confirmation testing will be performed for Amphetamines, Cocaine, Fentanyl, Methadone, Opiates, Oxycodone or Phencyclidine. us Valerie Reno MD LAB URINE ORDERABLES Fin al Result [facility] [place] [address] * HIV 1/2 Antibody plus p24 Antigen Blood (04/05/2024 9:47 PM WEDDING PHOTOGRAPHER) Pathologist [facility] HIV 1/2 ab + p24 ag Nonreactive Nonreactive Comment:Nonreactive for HIV- 1 antigen and HIV-1/HIV-2 antibodies. No laboratory evidence of HIV infection. If acute HIV infection is suspected, consider testing for HIV-1 RNA. Current interpretive data was last revised on 21. Blood 04/05/2024 9:47 PM WEDDING PHOTOGRAPHER 04/05/2024 10:21 PM WEDDING PHOTOGRAPHER Valerie Reno MD LAB MICROBIOLOGY - GENER AL ORDERABLES Final Result [facility] [place] [address] * RPR Blood (04/05/2024 9:47 PM WEDDING PHOTOGRAPHER) [facility] RPR Nonreactive Nonreactive Blood 04/05/2024 9:47 PM WEDDING PHOTOGRAPHER 04/05/2024 10:21 PM WEDDING PHOTOGRAPHER Valerie Reno MD LAB MICROBIOLOGY - GENER AL ORDERABLES Final Result Performing Organization Address City[facility] Co de Phone Number [facility] Department [place] [address] * Blood culture Blood (04/05/2024 9:47 PM WEDDING PHOTOGRAPHER) [facility] Report Final Report: No growth Blood 04/05/2024 9:47 PM WEDDING PHOTOGRAPHER 04/05/2024 10:06 PM WEDDING PHOTOGRAPHER Narrative [facility] - 04/10/2024 7:00 AM WEDDING PHOTOGRAPHER Collection->Peripheral 1. Blood cultures are incubated for [...] performance characteristics have been verified by the [facility] Microbiology Laboratory. For questions about this culture, contact the Microbiology Laboratory at [phone]. Interpretive data was last revised on 23. Valerie Reno MD LAB MICROBIOLOGY - GENER AL ORDERABLES Final Result Performing Organization Address [facility] de Phone Number [facility] [place] [address] * TSH (04/05/2024 9:47 PM WEDDING PHOTOGRAPHER) Thyroid Stimulating Hormone 1.26 0.30 - 4.20 mcIUnit/mL Blood 04/05/2024 9:47 PM WEDDING PHOTOGRAPHER 04/05/2024 10:21 PM WEDDING PHOTOGRAPHER Valerie Reno MD LAB BLOOD ORDERABLES Fin al Result Performing Organization Address [facility] de Phone Number [facility] [place] [address] * Vitamin B12 (04/05/2024 9:47 PM WEDDING PHOTOGRAPHER) Vitamin B12 521 230 - 1,250 pg/mL Blood 04/05/2024 9:47 PM WEDDING PHOTOGRAPHER 04/05/2024 10:21 PM WEDDING PHOTOGRAPHER Valerie Reno MD LAB BLOOD ORDERABLES Fin al Result [facility] [place] [address] * CT Abdomen Pelvis W Contrast (04/04/2024 12:22 PM WEDDING PHOTOGRAPHER) Anatomical Region Laterality Modality Body N/A Computed Tomogra phy 04/04/2024 12:4 7 PM WEDDING PHOTOGRAPHER Impressions 04/04/2024 12:47 PM WEDDING PHOTOGRAPHER 1. Possible thickening/edema of the anal canal, poorly evaluated on CT due to redundant soft tissues in this area but could reflect postsurgical changes of reported hemorrhoidectomy and/or postoperative inflammation. Small amount of stool is seen in the rectum with no evidence of colonic obstruction. Electronically signed by: Lorena Ferro M.D. Narrative 04/04/2024 12:47 PM WEDDING PHOTOGRAPHER EXAMINATION: CT of the abdomen and pelvis [...] microscopic and culture Urine (04/04/2024 12:06 PM WEDDING PHOTOGRAPHER) Color, ur Straw Yellow Clarity, ur Clear Clear [facility] Specific gravity, ur 1.006 1.003 - 1.030 [facility] pH, urine 7.5 [facility] Comment: Interpretive Data U rine pH is affected by diet, medications, systemic acid-base disturbances, and renal tubular function. pH may affect urinary stone formation. For example, urine pH below 6.0 may help reduce the tendency for calcium phosphate stones and pH greater than 6.0 may reduce the tendency for uric acid stone formation. Source: [facility] Current Interpretive Data was last revised on 2017 Protein, ur ql Negative Negative [facility] Glucose, ur ql Negative Negative [facility] Ketones, ur 1+(A) Negative [facility] Bilirubin, ur Negative Negative [facility] Blood, ur Negative Negative [facility] Urobilinogen, ur <2.0 <2.0 mg/dL [facility] Nitrite, ur Negative Negative [facility] Leukocyte esterase, ur Negative Negative [facility] UA reflex comment Reflex conditions for microscopic UA and culture not met. [facility] Urine 04/04/2024 12:0 6 PM WEDDING PHOTOGRAPHER 04/04/2024 12:15 PM WEDDING PHOTOGRAPHER Narrative [facility] - 04/04/2024 12:19 PM WEDDING PHOTOGRAPHER If patient unable to urinate, straight cath us Kel Pierson MD LAB MICROBIOLOGY - GENERAL ORDERABLES Final Result [facility] [place] [address] * POCT creatinine (04/04/2024 10:44 AM WEDDING PHOTOGRAPHER) [facility] Creatinine POC 0.7 0.6 - 1.1 mg/dL Blood 04/04/2024 10:4 4 AM WEDDING PHOTOGRAPHER 04/04/2024 10:44 AM WEDDING PHOTOGRAPHER Kel Pierson MD LAB POCT ORDERABLES - AMANDA CE Final Result [facility] [place] [address] * Respiratory pathogen panel Nasopharyngeal (04/04/2024 10:40 AM WEDDING PHOTOGRAPHER) [facility] Influenza A RNA Not Detected Not Detected Influenza B RNA Not Detected Not Detected [facility] RSV RNA Not Detected Not Detected [facility] COVID-19 RNA Not Detected Not Detected [facility] Coronavirus 229E RNA Not Detected Not Detected [facility] Coronavirus HKU1 RNA Not Detected Not Detected [facility] Coronavirus NL63 RNA Not Detected Not Detected [facility] Coronavirus OC43 RNA Not Detected Not Detected [facility] Adenovirus DNA Not Detected Not Detected [facility] Metapneumovirus RNA Not Detected Not Detected [facility] Rhinovirus/Enterov irus RNA Not Detected Not Detected [facility] Parainfluenza 1 RNA Not Detected Not Detected [facility] Parainfluenza 2 RNA Not Detected Not Detected [facility] Parainfluenza 3 RNA Not Detected Not Detected [facility] Parainfluenza 4 RNA Not Detected Not Detected [facility] B. pertussis DNA Not Detected Not Detected [facility] B. parapertussis DNA Not Detected Not Detected [facility] C. pneumoniae DNA Not Detected Not Detected [facility] M. pneumoniae DNA Not Detected Not Detected [facility] Nasopharyngeal 04/04/2024 10 :40 AM WEDDING PHOTOGRAPHER 04/04/2024 10:52 AM WEDDING PHOTOGRAPHER Narrative [facility] - 04/04/2024 12:14 PM WEDDING PHOTOGRAPHER Is the Patient experiencing symptoms consistent with COVID?->Unknown Surveillance testing for transplant patient?->No Interpretive Data The Apmetrix FilmArray Respiratory Panel (RP2.1) assay is a [...] assay has FDA clearance for testing of CLINICAL EDUCATION MANAGER swabs. The performance of additional specimen types has been assessed by the performing laboratory. The performance characteristics of this assay have been determined by [facility] Molecular Infectious Disease Laboratory. Current interpretive data was last revised on 21. us Kel Pierson MD LAB MICROBIOLOGY - GENERAL ORDERABLES Final Result Performing Organization Address City/[facility] Co de Phone Number [facility] [address] * POCT lactate (04/04/2024 10:24 AM WEDDING PHOTOGRAPHER) Pathologist [facility] Lactate POC i-STAT 1.2 0.7 - 2.0 mmol/L Blood 04/04/2024 10:2 4 AM WEDDING PHOTOGRAPHER 04/04/2024 10:24 AM WEDDING PHOTOGRAPHER Kel Pierson MD LAB POCT ORDERABLES - AMANDA CE Final Result Performing Organization Address [facility] Co de Phone Number [facility] [place] [address] * POCT lactate (04/04/2024 10:00 AM WEDDING PHOTOGRAPHER) [facility] Lactate POC i-STAT 1.5 0.7 - 2.0 mmol/L Blood 04/04/2024 10:0 0 AM WEDDING PHOTOGRAPHER 04/04/2024 10:00 AM WEDDING PHOTOGRAPHER Kel Pierson MD LAB POCT ORDERABLES - AMANDA CE Final Result Performing Organization Address [facility] Co de Phone Number [facility] Department [place] [address] * eGFR (04/04/2024 9:50 AM WEDDING PHOTOGRAPHER) Pathologist [facility] eGFR >90 >=60 mL/min/1. 73 m2 Comment: [...] last reviewed 2020. Blood 04/04/2024 9:50 AM WEDDING PHOTOGRAPHER 04/04/2024 10:11 AM WEDDING PHOTOGRAPHER us Hernesto Marquez MD LAB BLOOD ORDERABLES F inal Result [facility] [place] [address] * Differential, auto (04/04/2024 9:50 AM WEDDING PHOTOGRAPHER) Neutrophil abs 6.1 1.5 - 6.5 K/cumm Imm gran abs 0.0 0.0 - 0.1 K/cumm [facility] Lymphocyte abs 1.3 0.8 - 3.3 K/cumm [facility] Monocyte abs 0.4 0.2 - 0.8 K/cumm [facility] Eosinophil abs 0.1 0.0 - 0.5 K/cumm [facility] Basophil abs 0.0 0.0 - 0.1 K/cumm [facility] Neutrophil pct 77.0 % [facility] Comment: Interpretive Data Percent cell count reference ranges are not reported, since discordance with absolute values may lead to misinterpretation of CBC data. Current Interpretive Data was last revised on 2017. Imm gran pct 0.3 % [facility] Comment: Interpretive Data Percent cell count reference ranges are not reported, since discordance with absolute values may lead to misinterpretation of CBC data. Current Interpretive Data was last revised on 2017. Lymphocyte pct 16.7 % [facility] Comment: Interpretive Data Percent cell count reference ranges are not reported, since discordance with absolute values may lead to misinterpretation of CBC data. Current Interpretive Data was last revised on 2017. Monocyte pct 5.1 % [facility] Comment: Interpretive Data Percent cell count reference ranges are not reported, since discordance with absolute values may lead to misinterpretation of CBC data. Current Interpretive Data was last revised on 2017. Eosinophil pct 0.6 % [facility] Comment: Interpretive Data Percent cell count reference ranges are not reported, since discordance with absolute values may lead to misinterpretation of CBC data. Current Interpretive Data was last revised on 2017. Basophil pct 0.3 % [facility] Comment: Interpretive Data Percent cell count reference ranges are not reported, since discordance with absolute values may lead to misinterpretation of CBC data. Current Interpretive Data was last revised on 2017. Blood 04/04/2024 9:50 AM WEDDING PHOTOGRAPHER 04/04/2024 10:11 AM WEDDING PHOTOGRAPHER us Kel Pierson MD LAB BLOOD ORDERABLES Final Result [facility] [place] [address] * (ABNORMAL) CBC with auto differential (04/04/2024 9:50 AM WEDDING PHOTOGRAPHER) WBC 7.9 3.8 - 9.9 K/cumm Hgb 14.6 11.9 - 15.5 g/dL [facility] Hct 40.7 35.6 - 45.5 % [facility] Plt 290 150 - 400 K/cumm [facility] MPV 8.8(L) 9.1 - 12.3 fL [facility] RBC 4.61 3.90 - 5.20 M/cumm [facility] MCV 88.3 81.3 - 96.4 fL [facility] MCH 31.7 27.1 - 33.3 pg [facility] MCHC 35.9(H) 32.3 - 35.7 g/dL [facility] RDW CV 11.3 11.1 - 14.9 % [facility] RDW SD 36.2 35.7 - 48.1 fL [facility] NRBC abs 0.00 0.00 - 0.01 K/cumm [facility] Blood 04/04/2024 9:50 AM WEDDING PHOTOGRAPHER 04/04/2024 10:11 AM WEDDING PHOTOGRAPHER Kel Pierson MD LAB BLOOD ORDERABLES Final Result [facility] [place] [address] * (ABNORMAL) Comprehensive metabolic panel (04/04/2024 9:50 AM WEDDING PHOTOGRAPHER) Sodium 142 135 - 145 mmol/L Potassium, pl 3.9 3.3 - 4.9 mmol/L [facility] Chloride 102 97 - 110 mmol/L [facility] CO2 29 22 - 32 mmol/L [facility] Anion gap 11 2 - 15 mmol/L [facility] BUN 9 6 - 25 mg/dL [facility] Creatinine 0.71 0.60 - 1.10 mg/dL [facility] Glucose 101 70 - 199 mg/dL [facility] Comment: Interpretive Data Fasting glucose >/= 126 [...] 2022. Calcium 9.7 8.5 - 10.3 mg/dL [facility] Bilirubin, total 0.9 0.1 - 1.2 mg/dL [facility] Protein, pl 7.0 6.5 - 8.5 g/dL [facility] Albumin 4.1 3.5 - 5.0 g/dL [facility] Alk phos 63 40 - 130 Units/L [facility] ALT 6(L) 7 - 45 Units/L [facility] AST 12 10 - 45 Units/L [facility] Blood 04/04/2024 9:50 AM WEDDING PHOTOGRAPHER 04/04/2024 10:11 AM WEDDING PHOTOGRAPHER Kel Pierson MD LAB BLOOD ORDERABLES Final Result [facility] [place] [address] * Surgical pathology (03/31/2024 7:30 AM WEDDING PHOTOGRAPHER) Tissue specimen (specimen) (Skin - Cyst / Tag / Debridement) 03/31/2024 7:30 AM WEDDING PHOTOGRAPHER Tissue specimen (specimen) (Hemorrhoid/Anal Tag) 03/31/2024 7:33 AM WEDDING PHOTOGRAPHER Narrative PATHOLOGY WC - 04/02/2024 4:02 PM WEDDING PHOTOGRAPHER EPIC results best viewed via link to PDF [facility] Shaylee [facility] [place] [address] Note to Patients: This report may contain [...] Gender: F : 1970 (Age: 54) Address: [address] [place], [place] [id number] Hospital #: [id number] Taken:03/31/2024 Received:03/31/2024 Reported: 04/02/2024 Patient Type: BWC EP SAME [facility] Service: Surgery Location: Physician(s): Hallie Kirby MD Diagnosis: A. Skin and soft tissue, anal skin tag , excision - Fibroepithelial polyp B. Skin and soft tissue, hemorrhoid , excision - Hemorrhoids fw/04/02/2024 14:31 By this signature, I attest that the above diagnosis is based upon my personal examination of the slides(and/or other material indicated in the diagnosis). Domingo Hartman M.D. Report Electronically Reviewed and Signed [...] interpretation for this case was performed at [facility], Department of Surgical Pathology, [address] [facility], [id number], [place] [address] CLIA # [id number] The performance characteristics of some immunohistochemical stains, fluorescence in-situ hybridization tests and immunophenotyping by flow cytometry cited in this report (if any) were determined by the Surgical Pathology and Flow Cytometry Departments at [facility] as part of an ongoing it quality assurance analyst program and in compliance with federally mandated [...] Surgical Pathology and Flow Cytometry Departments of [facility]. It has not been cleared or approved by the U. S. Food and Drug Administration. IMAGES AND SCANNED DOCUMENTS, IF INCLUDED, ONLY VIEWABLE IN PDF VERSION OF REPORT Keon Jasso MD LAB PATHOLOGY ORDERABLES Fin al Result Performing Organization Address [facility] Co de Phone Number PATHOLOGY [facility] [phone] * POC ISTAT (03/31/2024 6:35 AM WEDDING PHOTOGRAPHER) [facility] K POC 4.2 3.3 - 4.9 mmol/L Comment: Interpretive Data This method is not able to assess for hemolysis, which may falsely increase potassium concentrations. If further testing is needed to evaluate this result, consider in-laboratory plasma potassium. Current Interpretive Data was last revised on 2021. POC Device Number [id number] [facility] POC Performer [id number] [facility] HUA Blood 03/31/2024 6:35 AM WEDDING PHOTOGRAPHER 03/31/2024 6:35 AM WEDDING PHOTOGRAPHER Keon Jasso MD LAB BLOOD ORDERABLES Final R esult Performing Organization Address City/[facility]/ZIP Co de Phone Number [facility] [address] [facility]. [place] [address] * Serum Hepatitis panel (04/18/2015 6:59 AM WEDDING PHOTOGRAPHER) [facility] HCV ab Negative NEG HISTORICAL RESULTS Comment: Interpretive Data If confirmation is required, call Laboratory Customer Service to request sample to be sent to [facility] for Hepatitis C Virus (HCV) RNA Detection and Quantitation by Real-Time Reverse Naval Architect Specialist-PCR (RT-PCR). Current interpretive data was last revised [...] HISTO RICAL RESULTS Serum 04/18/2015 6:59 AM WEDDING PHOTOGRAPHER us Shant Delgado LAB BLOOD ORDERABLES Final Resul t HISTORICAL RESULTS * COLONOSCOPY REPORT (04/08/2015) Anatomical Region Laterality Modality Other Narrative 04/08/2015 Ordered by an unspecified provider. Historical Provider GI PROCEDURE ORDERABLES F inal Result from Last 3 Months or Most Recently Relevant to Health Maintenance Insurance BL CHO[place] Advance Directives For more information, please contact: [phone] * Full Code (Latest Code Status on File) Date Activated Date Inactivated Comments 04/05/2024 1:41 AM 04/11/2024 6:52 PM Care Teams [employer] Ha[employer] Truck [employer] Relationship Specialty Start Date End Date Miguel Ángel Oliva MD [address] [place] [address] PCP - General Internal Medicine 10/04/22 Juan Carlos Bangura MD Referring Physician Neurology 09/12/22 Keon Jasso MD [address] [facility] [id number] [place] [address] Surgeon Colon and Rectal Surgery 05/24/23
--- OUTSIDE RECORDS SUMMARY | 2024-06-28 11:09 | XMS_ITS | Encounter Summary ---
Author Organization [facility] - [facility] Address Count includes the [facility] [place] [address] Care Team Providers Care Associate Financial Representative Name Role Phone Miguel Ángel Oliva MD Primary Care Provider [phone] Encounter Details Date Type Department Care Team (Late st Contact Info) Description 03/20/2023 [place] Message Enc [facility] Multispecialty Care - [address] [place] [address] [place], [facility] Provider Laxatives Social History Tobacco Use Types Packs/Day Years Used Date Smoking Tobacco: Every Day Cigarettes 0.3 20 Smokeless Tobacco: Never Comments:1 cig a day after l unch; counseled by Dr. Oliva. Alcohol Use Standard Drinks/Week Comments Never 0 (1 standard drink = 0.6 oz pur e alcohol) [facility] Utilities Answer Date Recorded In the past 12 months has e electric, gas, oil, or water [employer] threatened to shut off services in your [...] Never 03/13/2023 How often do you attend denominational or protestant serv ices? Never 03/13/2023 Do you belong to any clubs o r organizations such as denominational groups, unions, fraternal or athletic groups, or [...] Recorded Patient Health Questionnaire-2 Score 4 09/15/2022 [facility] Occupat ional [facility] - Occupational Stress [...] place to sleep or slept in a nursing home (including now)? No 03/13/2023 Comments No Sex and Gender Information Value Date Recorded Sex Assigned at Female 04/24/2024 2:19 PM RIVETER HAND Legal Sex Female 4:25 PM CDT Gender [...] Date Author Status Yes 03/13/2023 6:00 PM RIVETER HAND Kasia Bourne RN Active documented in this encounter Plan of Treatment Upcoming Encounters Date Type Department Care Team (Late st Contact Info) Description 06/30/2024 10:40 AM CDT Office Visit [facility] Multispecialty [address] [address] [address] [place] [address] Miguel Ángel Oliva MD [address] [place] [address] documented as of this encounter Visit Diagnoses Not on filedocumented in this encounter Additional Health Concerns Assessment Noted Time PHQ-9 Depression Total Score: 17 023 2:21 PM CDT documented as of this encounter Care Teams Associate Financial Representative Relationship Specialty Start Date End Date Miguel Ángel Oliva MD [address] [place] [address] PCP - General INTERNAL MEDICINE 06/16/21 Nish Hunter Referring Physician 12/04/23 documented as of this encounter
[2024-06-28 11:15] VITALS: BP 140/92; PULSE 80; RESP 16; TEMP 36.1; O2SAT 100
--- OUTSIDE RECORDS SUMMARY | 2024-06-28 12:02 | XMS_ITS | Encounter Summary ---
Author Organization [facility] Address [address] [place] [address] Care Team Providers Care Vocational Nursing Instructor Name Role Phone Carlyn Mcmahon MD Primary Care Provider [phone] Miguel Ángel Oliva MD Primary Care Provider [phone] Encounter Details Date Type Department Care Team (Late st Contact Info) Description 02/01/2021 Prep for Procedure [facility] [address] [place] [address] Mireya Cardenas MD [address] [place] [address] Social History Tobacco Use Types Packs/Day Years [...] Sex Assigned at Female 04/24/2024 2:19 PM RELAY REPAIRER Legal Sex Female 4:25 PM CDT Gender Identity Female 05/09/2024 11:14 AM CDT Sexual Orientation Straight 05/09/2024 11 :14 AM CDT COVID-19 Exposure Response Date Recorded In the last month, have you been in contact with someone who was confirmed or suspected to have Coronavirus / COVID-19? No / Unsure 02/04/2021 9:43 AM RELAY REPAIRER documented as of this encounter Plan of Treatment Upcoming Encounters Date Type Department Care Team (Late st Contact Info) Description 06/30/2024 10:40 AM CDT Office Visit [facility] Multispecialty Care - [place] [address] [address] [address] [place] [address] Miguel Ángel Oliva MD [address] [facility] [address] [place] [address] documented as of this encounter Results * PRE-SURGICAL/PRE-PROCEDURE CORONAVIRUS (COVID 19) (02/04/2021 9:48 AM RELAY REPAIRER) SPEC DESCRIPTION NASAL 02/05/20 9:43 AM RELAY REPAIRER [facility] CORONAVIRUS SARS COV 2 PCR (RESP) NEGATIVE NEGATIVE 02/05/2021 2:31 PM [facility] (D[facility] Comment: THE SARS-CoV-2 TEST HAS BEEN AUTHORIZED BY THE FDA UNDER AN EUA FOR USE BY AUTHORIZED LABORATORIES. PERFORMED BY NUCLEIC ACID AMPLIFICATION PCR FIRST TEST NO 02/04/2021 9:43 AM [facility] EMPLOYED IN HEALTHCARE NO 02/04/2021 9:43 AM [facility] SYMPTOMATIC DEFINED BY CDC NO 02/04/2021 9:43 AM [facility] HOSPITALIZATION STATUS NO 02/04/2021 9:43 AM [facility] PATIENT IN ICU NO 02/04/2021 9:43 AM RELAY REPAIRER [facility] RESIDENT OF [facility] NO 02/04/2021 9:43 AM [facility] NOT 02/04/2021 9:43 AM [facility] NASAL STRUCTURE / Unknown 02/04/2021 9:48 AM RELAY REPAIRER Mireya Cardenas MD MICROBIOLOGY - GENERAL ORDER BELLO Final Result [facility] (B) [facility] [address] [place] [address], [place] [phone] [facility] [address] [place] [address], [place] [phone] documented in this encounter Visit Diagnoses Diagnosis [...] Rule Out 02/04/2021 02/04/2021 02/05/2021 2:31 PM RELAY REPAIRER Assessment Noted Time PHQ-9 Depression Total Score: 0 12/02/19 1:30 PM CDT documented as of this encounter Care Teams Vocational Nursing Instructor Relationship Specialty Start Date End Date Carlyn Mcmahon MD [address] [place] [address] PCP - General FAMILY PRACTICE 06/24/20 06/15/21 Miguel Ángel Oliva MD [address] [facility] [address] [place] [address] PCP - General INTERNAL MEDICINE 06/16/21 Nish Hunter Referring Physician 12/04/23 documented as of this encounter
--- OUTSIDE RECORDS SUMMARY | 2024-06-28 12:02 | XMS_ITS | Encounter Summary ---
Author Organization [facility] Address [address] [place] [address] Care Team Providers Care Wheel Mill Operator Name Role Phone Miguel Ángel Oliva MD Primary Care Provider [phone] Encounter Details Date Type Department Care Team (Late st Contact Info) Description 11/30/2021 [employer] Interventional Message Enc [facility] Multispecialty Care - [facility] [address] [facility], [address] [place] [address] [employer], [facility] Provider Schedule EMG Social History [...] Sex Assigned at Female 04/24/2024 2:19 PM CORPORATE ASSOCIATE ATTORNEY Legal Sex Female 4:25 PM CDT Gender [...] Description 06/30/2024 10:40 AM CDT Office Visit [facility] Multispecialty Care - [address] [address] [address] [place] [address] Miguel Ángel Oliva MD [address] [place] [address] documented as of this encounter Visit Diagnoses Not on filedocumented in this encounter Additional Health Concerns Assessment Noted Time PHQ-9 Depression Total Score: 20 022 11:52 AM CDT documented as of this encounter Care Teams Wheel Mill Operator Relationship Specialty Start Date End Date Miguel Ángel Oliva MD [address] [place] [address] PCP - General INTERNAL MEDICINE 06/16/21 Nish Hunter Referring Physician 12/04/23 documented as of this encounter
--- OUTSIDE RECORDS SUMMARY | 2024-06-28 12:02 | XMS_ITS | Clinical Summary ---
Author Organization [place] [id number] [facility] Address [address] [place] [address] Care Team Providers Care Product Safety Professional Name Role Phone Juan Carlos Bangura MD Unavailable [phone] Miguel Ángel Oliva MD Primary Care Provider [phone] Keon Jasso MD Unavailable [phone] Allergies Active Allergy Reactions Criticality Noted Date [...] 5 Assessment & Plan (04/05/2024 4:14 PM PUBLIC SPACE ATTENDANT): - Continue home PPI equivalent HLD (hyperlipidemia) 04/05/2024 Assessment & Plan (04/05/2024 4:14 PM PUBLIC SPACE ATTENDANT): - Continue home Crestor HTN (hypertension) 04/05/2024 Assessment & Plan (04/05/2024 4:14 PM PUBLIC SPACE ATTENDANT): - Continue home triamterene hydrochlorothiazide. MARISOL (generalized anxiety disorder) 04/05/2024 Assessment & Plan (04/05/2024 4:14 PM PUBLIC SPACE ATTENDANT): History of generalized anxiety disorder/depression - Continue home Xanax as needed. Urinary retention 04/05/2024 Assessment & Plan (04/08/2024 4:30 PM PUBLIC SPACE ATTENDANT): Likely related to recent botox injections to [...] 04/05/2024 Assessment & Plan (04/08/2024 4:31 PM PUBLIC SPACE ATTENDANT): Main complaint is dizziness. She has a [...] 04/04/2024 Assessment & Plan (04/08/2024 4:32 PM PUBLIC SPACE ATTENDANT): Presented with postoperative perianal pain the setting [...] testing for now as it would not bladder changer. She continues to have significant wearing off. [...] encounter Assessment & Plan (04/05/2024 4:14 PM PUBLIC SPACE ATTENDANT): - Continue on carbidopa levodopa Assessment & [...] testing for now as it would not bladder changer. We previously discussed that there are no [...] testing for now as it would not bladder changer. I also suspect there is a functional overlay to some of her symptoms and exam findings. We discussed that there are no definitive diagnostic tests for PD, but a skin biopsy might be supportive and provide more clarity if she is interested (but would again likely not bladder changer). She is not interested at this time. [...] 03/17/2015 Assessment & Plan (04/05/2024 4:06 PM PUBLIC SPACE ATTENDANT): History of Meniere's disease - Continue home triamterene hydrochlorothiazide - Meclizine as needed Resolved Problems Problem Noted Date Diagnosed Date Resolved Date Anal fissure 05/24/2023 03/06/2024 Encounters Date Type Department Care Team Description 06/24/2024 11:30 AM CDT Office Visit [facility] Movement Disorders [address] [place] [address] [address]th [place] [address] Samantha Roberson, MARISOL Parkinson's disease, unspecified whether dyskinesia present, unspecified whether manifestations fluctuate (HCC) (Primary Dx); Cervical dystonia 06/23/2024 Orders Only [facility] Movement Disorders [address] 6th [place] [address] [place] [address] Nish Hunter MD PhD Cervical dystonia 06/17/2024 9:20 AM CDT Procedure visit [facility] Movement Disorders [address] 6th [place] [address] [place] [address] Nish Hunter MD PhD Cervical dystonia (Primary Dx); Parkinson's disease with dyskinesia and fluctuating manifestations (HCC) 06/09/2024 Orders Only [facility] Movement Disorders [address] 6th [place] [address] [place] [address] Nish Hunter MD PhD Parkinson's disease with dyskinesia and fluctuating manifestations (HCC) (Primary Dx) 05/08/2024 Telephone [facility] Scheduling [address] [place] [address] Greg Sajikenoza 05/05/2024 Telephone [facility] Scheduling [address] [place] [address] Nish Hunter MD PhD Scheduling Appointments 05/01/2024 3:15 PM CDT Office Visit [facility] Surgery [address] 2nd [address] [place] [address] Keon Jasso MD Hemorrhoids, unspecified hemorrhoid type (Primary Dx) 04/04/2024 9:26 AM PUBLIC SPACE ATTENDANT - 04/11/2024 2:52 PM PUBLIC SPACE ATTENDANT Hospital Encounter [facility] [address] [place] [address] Kel Pierson MD Lacy, Timur Copeland MD Ma, MD David Linn Natalia, MD Choi, Cheuk Ho Jeffrey, MD Acute post-operative pain (Primary Dx); Other constipation; Urinary retention Discharge Disposition: Discharge to an Rehab facility 03/31/2024 7:15 AM PUBLIC SPACE ATTENDANT - 03/31/2024 8:00 AM [facility] Surgery [facility] Operating Room [id number] [place] [address] Keon Jasso MD EXAM UNDER ANESTHESIA - RECTUM, RIGID PROCTOSCOPE 03/31/2024 7:06 AM PUBLIC SPACE ATTENDANT Anesthesia Event [facility] Operating Room [id number] Elisa BLUNT, [place] [address] Randall Arriaga MD Wiethuchter, Kelli P., RECEIVABLES SPECIALIST 03/31/2024 5:40 AM PUBLIC SPACE ATTENDANT - 03/31/2024 9:24 AM PUBLIC SPACE ATTENDANT Hospital Encounter [facility] Operating Room [id number] BLUNT, [place] [address] Keon Jasso MD Hemorrhoids, unspecified hemorrhoid type; [...] on file Legal Sex Female 7:08 AM PUBLIC SPACE ATTENDANT Gender Identity Not on file Sexual Orientation Not on file Obstetrics History Last Filed Vital Signs Vital Sign Reading Time Taken Comments Blood Pressure 151/89 06/24/2024 11:26 AM CDT Pulse 56 06/24/2024 11:26 AM CDT Temperature 36.8 C (98.3 F) 06/24/2024 11:26 AM CDT Respiratory Rate 18 04/11/2024 8:17 AM PUBLIC SPACE ATTENDANT Oxygen Saturation 100% 05/01/2024 2:44 PM CDT [...] Diagnosis Comments EGFR Routine 04/07/2024 9:38 PM PUBLIC SPACE ATTENDANT BASIC METABOLIC PANEL Routine 04/07/2024 9:38 PM PUBLIC SPACE ATTENDANT URINALYSIS, MICROSCOPIC ONLY Routine 04/07/2024 7:52 AM PUBLIC SPACE ATTENDANT URINALYSIS AND REFLEX TO MICROSCOPIC AND CULTURE Routine 04/07/2024 7:52 AM PUBLIC SPACE ATTENDANT EGFR Routine 04/06/2024 9:35 PM PUBLIC SPACE ATTENDANT DIFFERENTIAL AUTO Routine 04/06/2024 9:3 5 PM PUBLIC SPACE ATTENDANT CBC WITH AUTO DIFFERENTIAL Routine 04/06/2024 9:35 PM PUBLIC SPACE ATTENDANT BASIC METABOLIC PANEL Routine 04/06/2024 9:35 PM PUBLIC SPACE ATTENDANT XR ABDOMEN AP 1 VIEW IP Routine 04/06/2024 2:16 PM PUBLIC SPACE ATTENDANT XR CHEST 1 VIEW IP Routine 04/06/2024 2:16 PM PUBLIC SPACE ATTENDANT ECG 12-LEAD STAT 04/06/2024 1:12 PM PUBLIC SPACE ATTENDANT DRUGS OF ABUSE SCREEN, URINE WITH REFLEX CONFIRMATION Routine 04/06/2024 2:05 AM PUBLIC SPACE ATTENDANT TSH Routine 04/05/2024 9:47 PM PUBLIC SPACE ATTENDANT VITAMIN B12 Routine 04/05/2024 9:47 PM PUBLIC SPACE ATTENDANT RPR Routine 04/05/2024 9:47 PM PUBLIC SPACE ATTENDANT HIV 1/2 ANTIBODY PLUS P24 ANTIGEN Routine 04/05/2024 9:47 PM PUBLIC SPACE ATTENDANT BLOOD CULTURE Routine 04/05/2024 9:[address] ABDOMEN PELVIS W CONTRAST ED 04/04/2024 12:22 PM PUBLIC SPACE ATTENDANT URINALYSIS AND REFLEX TO MICROSCOPIC AND CULTURE STAT 04/04/2024 12:06 PM PUBLIC SPACE ATTENDANT POCT CREATININE - DEVICE Routine 04/04/2024 10:44 AM PUBLIC SPACE ATTENDANT RESPIRATORY PATHOGEN PANEL STAT 04/04/2024 10:40 AM PUBLIC SPACE ATTENDANT POCT LACTATE - DEVICE Routine 04/04/2024 10:24 AM PUBLIC SPACE ATTENDANT POCT LACTATE - DEVICE Routine 04/04/2024 10:00 AM PUBLIC SPACE ATTENDANT EGFR STAT 04/04/2024 9:50 AM PUBLIC SPACE ATTENDANT DIFFERENTIAL AUTO STAT 04/04/2024 9:5 0 AM PUBLIC SPACE ATTENDANT COMPREHENSIVE METABOLIC PANEL STAT 04/04/2024 9:50 AM PUBLIC SPACE ATTENDANT CBC WITH AUTO DIFFERENTIAL STAT 04/04/2024 9:50 AM PUBLIC SPACE ATTENDANT SURGICAL PATHOLOGY Routine 03/31/2024 7: 30 AM PUBLIC SPACE ATTENDANT Hemorrhoids, unspecified hemorrhoid type Spastic pelvic floor syndrome INJECTION BOTOX SPHINCTER 03/31/2024 7:11 AM PUBLIC SPACE ATTENDANT Hemorrhoids, unspecified hemorrhoid type Spastic pelvic floor syndrome HEMORRHOIDECTOMY 03/31/2024 7:11 AM PUBLIC SPACE ATTENDANT Hemorrhoids, unspecified hemorrhoid type Spastic pelvic floor syndrome EXAM UNDER ANESTHESIA - RECTUM 03/31/2024 7:11 AM PUBLIC SPACE ATTENDANT Hemorrhoids, unspecified hemorrhoid type Spastic pelvic floor syndrome POC ISTAT Routine 03/31/2024 6:35 AM PUBLIC SPACE ATTENDANT SERUM HEPATITIS PANEL Routine 04/18/2015 6:59 AM PUBLIC SPACE ATTENDANT COLONOSCOPY REPORT 04/08/2015 from Last 3 Months or Most Recently Relevant to Health Maintenance Results * eGFR (04/07/2024 9:38 PM PUBLIC SPACE ATTENDANT) eGFR >90 >=60 mL/min/1. 73 m2 Comment: [...] last reviewed 2020. Blood 04/07/2024 9:38 PM PUBLIC SPACE ATTENDANT 04/07/2024 10:07 PM PUBLIC SPACE ATTENDANT us Valerie Reno MD LAB BLOOD ORDERABLES Fin al Result [facility] [address] [place] [address] * Basic metabolic panel (04/07/2024 9:38 PM PUBLIC SPACE ATTENDANT) Pathologist [facility] [place] Sodium 143 135 - 145 mmol/L Potassium, pl 3.4 3.3 - 4.9 mmol/L [facility] Chloride 104 97 - 110 mmol/L [facility] CO2 29 22 - 32 mmol/L [facility] Anion gap 10 2 - 15 mmol/L [facility] BUN 6 6 - 25 mg/dL [facility] Creatinine 0.60 0.60 - 1.10 mg/dL [facility] Glucose 88 70 - 199 mg/dL [facility] Comment: Interpretive Data Fasting glucose >/= [...] 2022. Calcium 9.2 8.5 - 10.3 mg/dL [facility] Blood 04/07/2024 9:38 PM PUBLIC SPACE ATTENDANT 04/07/2024 10:07 PM PUBLIC SPACE ATTENDANT us Valerie Reno MD LAB BLOOD ORDERABLES Fin al Result [facility] [address] [place] [address] * (ABNORMAL) Urinalysis reflex to microscopic and culture Urine (04/07/2024 7:52 AM PUBLIC SPACE ATTENDANT) Color, ur Straw Yellow Clarity, ur Clear Clear [facility] Specific gravity, ur 1.009 1.003 - 1.030 [facility] pH, urine 6.0 [facility] Comment: Interpretive Data U rine pH is affected by diet, medications, systemic acid-base disturbances, and renal tubular function. pH may affect urinary stone formation. For example, urine pH below 6.0 may help reduce the tendency for calcium phosphate stones and pH greater than 6.0 may reduce the tendency for uric acid stone formation. Source: [facility] [employer] Current Interpretive Data was last revised on 2017 Protein, ur ql Negative Negative [facility] Glucose, ur ql Negative Negative [facility] Ketones, ur Negative Negative [facility] Bilirubin, ur Negative Negative [facility] Blood, ur Negative Negative [facility] Urobilinogen, ur <2.0 <2.0 mg/dL [facility] Nitrite, ur Positive(A) Negative [facility] Leukocyte esterase, ur Negative Negative [facility] UA reflex comment Reflex to microscopic UA will be performed. [facility] Urine 04/07/2024 7:52 AM PUBLIC SPACE ATTENDANT 04/07/2024 8:03 AM PUBLIC SPACE ATTENDANT Valerie Reno MD LAB MICROBIOLOGY - GENER AL ORDERABLES Final Result Performing Organization Address [facility] Co de Phone Number [facility] [place] [address] * (ABNORMAL) Urinalysis, microscopic only (04/07/2024 7:52 AM PUBLIC SPACE ATTENDANT) WBC, ur 6-10(A) 0 - 5 /HPF RBC, ur 0-2 0 - 2 /HPF [facility] Bacteria, ur Trace(A) [facility] Mucous, ur Present(A) [facility] Culture Reflex Comment Reflex conditions for urine culture (WBC >10) not met. [facility] Urine 04/07/2024 7:52 AM PUBLIC SPACE ATTENDANT 04/07/2024 8:03 AM PUBLIC SPACE ATTENDANT Valerie Reno MD LAB URINE ORDERABLES Fin al Result Performing Organization Address [facility] de Phone Number [facility] [place] [address] * eGFR (04/06/2024 9:35 PM PUBLIC SPACE ATTENDANT) eGFR >90 >=60 mL/min/1. 73 m2 Comment: [...] last reviewed 2020. Blood 04/06/2024 9:35 PM PUBLIC SPACE ATTENDANT 04/06/2024 10:20 PM PUBLIC SPACE ATTENDANT us Valerie Reno MD LAB BLOOD ORDERABLES Fin al Result [facility] [address] Department [place] [address] * (ABNORMAL) Differential, auto (04/06/2024 9:35 PM PUBLIC SPACE ATTENDANT) Neutrophil abs 7.2(H) 1.5 - 6.5 K/cumm Imm gran abs 0.0 0.0 - 0.1 K/cumm [facility] Lymphocyte abs 2.0 0.8 - 3.3 K/cumm [facility] Monocyte abs 0.6 0.2 - 0.8 K/cumm [facility] Eosinophil abs 0.1 0.0 - 0.5 K/cumm [facility] Basophil abs 0.0 0.0 - 0.1 K/cumm [facility] Neutrophil pct 73.2 % [facility] Comment: Interpretive Data Percent cell count reference ranges are not reported, since discordance with absolute values may lead to misinterpretation of CBC data. Current Interpretive Data was last revised on 2017. Imm gran pct 0.3 % [facility] Comment: Interpretive Data Percent cell count reference ranges are not reported, since discordance with absolute values may lead to misinterpretation of CBC data. Current Interpretive Data was last revised on 2017. Lymphocyte pct 19.9 % [facility] Comment: Interpretive Data Percent cell count reference ranges are not reported, since discordance with absolute values may lead to misinterpretation of CBC data. Current Interpretive Data was last revised on 2017. Monocyte pct 5.6 % [facility] Comment: Interpretive Data Percent cell count reference ranges are not reported, since discordance with absolute values may lead to misinterpretation of CBC data. Current Interpretive Data was last revised on 2017. Eosinophil pct 0.8 % [facility] Comment: Interpretive Data Percent cell count reference ranges are not reported, since discordance with absolute values may lead to misinterpretation of CBC data. Current Interpretive Data was last revised on 2017. Basophil pct 0.2 % [facility] Comment: Interpretive Data Percent cell count reference ranges are not reported, since discordance with absolute values may lead to misinterpretation of CBC data. Current Interpretive Data was last revised on 2017. Blood 04/06/2024 9:35 PM PUBLIC SPACE ATTENDANT 04/06/2024 10:20 PM PUBLIC SPACE ATTENDANT us Valerie Reno MD LAB BLOOD ORDERABLES Fin al Result [facility] [address] [place] [address] * (ABNORMAL) CBC with auto differential (04/06/2024 9:35 PM PUBLIC SPACE ATTENDANT) WBC 9.8 3.8 - 9.9 K/cumm Hgb 13.8 11.9 - 15.5 g/dL [facility] Comment:Result may be inaccu rate due to increased plasma turbidity. Consider redraw. Hct 36.6 35.6 - 45.5 % [facility] Plt 295 150 - 400 K/cumm [facility] MPV 8.7(L) 9.1 - 12.3 fL [facility] RBC 4.21 3.90 - 5.20 M/cumm [facility] MCV 86.9 81.3 - 96.4 fL [facility] MCH 32.8 27.1 - 33.3 pg [facility] Comment:Result may be inaccu rate due to increased plasma turbidity. Consider redraw. MCHC 37.7(H) 32.3 - 35.7 g/dL [facility] Comment:Result may be inaccu rate due to increased plasma turbidity. Consider redraw. RDW CV 11.2 11.1 - 14.9 % [facility] RDW SD 35.6(L) 35.7 - 48.1 fL [facility] NRBC abs 0.00 0.00 - 0.01 K/cumm [facility] Blood 04/06/2024 9:35 PM PUBLIC SPACE ATTENDANT 04/06/2024 10:20 PM PUBLIC SPACE ATTENDANT Valerie Reno MD LAB BLOOD ORDERABLES Fin al Result Performing Organization Address City/[facility]/ZIP Co de Phone Number [facility] [address] Department [place] [address] * (ABNORMAL) Basic metabolic panel (04/06/2024 9:35 PM PUBLIC SPACE ATTENDANT) Pathologist [facility] [place] Sodium 142 135 - 145 mmol/L Potassium, pl 3.7 3.3 - 4.9 mmol/L [facility] Chloride 107 97 - 110 mmol/L [facility] CO2 26 22 - 32 mmol/L [facility] Anion gap 9 2 - 15 mmol/L [facility] BUN 6 6 - 25 mg/dL [facility] Creatinine 0.46(L) 0.60 - 1.10 mg/dL [facility] Glucose 104 70 - 199 mg/dL [facility] Comment: Interpretive Data Fasting glucose >/= [...] 2022. Calcium 9.0 8.5 - 10.3 mg/dL [facility] Blood 04/06/2024 9:35 PM PUBLIC SPACE ATTENDANT 04/06/2024 10:20 PM PUBLIC SPACE ATTENDANT Valerie Reno MD LAB BLOOD ORDERABLES Fin al Result Performing Organization Address [facility] Co de Phone Number [facility] [address] [place] [address] * XR Abdomen Ap 1 Vw (04/06/2024 2:16 PM PUBLIC SPACE ATTENDANT) Anatomical Region Laterality Modality Body, Abdomen N/A Digital Radiogra phy 04/07/2024 8:46 AM PUBLIC SPACE ATTENDANT Impressions 04/07/2024 8:54 AM PUBLIC SPACE ATTENDANT Mild gaseous distention of the stomach. The bowel gas pattern is otherwise within normal limits. Cholecystectomy clips. Clear lung bases. Dictated by: Ross Hollis MD PHD The radiology attending physician has personally reviewed this study, and had reviewed and/or edited this written report and agrees with it. Electronically signed by: Clayton Cedillo M.D. Narrative 04/07/2024 8:54 AM PUBLIC SPACE ATTENDANT EXAMINATION: Abdomen, one view. HISTORY: Concern for [...] XR Chest 1 View (04/06/2024 2:16 PM PUBLIC SPACE ATTENDANT) Anatomical Region Laterality Modality Body, Chest N/A Digital Radiogra phy 04/06/2024 3:14 PM PUBLIC SPACE ATTENDANT Impressions 04/06/2024 3:14 PM PUBLIC SPACE ATTENDANT No prior chest radiographs are available for comparison. The lungs are well-expanded and clear of infiltrates or effusions. There is no pneumothorax. Curvilinear lucency projecting over the left upper chest is likely a skin fold. The film should be repeated for confirmation Electronically signed by: Ollie Dash M.D. Narrative 04/06/2024 3:14 PM PUBLIC SPACE ATTENDANT EXAMINATION: 1 view chest radiograph Procedure Note [...] * ECG 12 lead (04/06/2024 1:12 PM PUBLIC SPACE ATTENDANT) [facility] Ventricular Rate EKG/Min 59 BPM [facility] Atrial Rate 59 BPM [facility] [place]-Interval (MSEC) 134 ms [facility] QRS-Interval (MSEC) 76 ms [facility] QT-Interval (MSEC) 410 ms [facility] QTc 405 ms [facility] P [place] 44 degrees [facility] R [place] 11 degrees [facility] T [place] 54 degrees [facility] Diagnosis Sinus bradycardia Nonspecific T wave abnormality Abnormal ECG When compared with ECG of 19-MAY-2016 19:09, Nonspecific T wave abnormality, worse in Lateral leads Confirmed by JANA MEJIA M.D ([id number]) on 04/07/2024 3:30:32 PM [facility] 04/06/2024 1:12 PM PUBLIC SPACE ATTENDANT 04/07/2024 3:30 PM PUBLIC SPACE ATTENDANT Valerie Reno MD ECG ORDERABLES Final Re sult [facility] * (ABNORMAL) Drugs of Abuse Screen, Urine with Reflex Confirmation (04/06/2024 2:05 AM PUBLIC SPACE ATTENDANT) [facility] Amphetamine, ur Not Detected CutOff 500ng/mL Comment: Interpretive Data - Amphetamines: Samples containing greater than 500 ng/mL d-methamphetamine or other cross-reacting amphetamine compounds are reported as positive. Amphetamine immunoassays are subject to significant false positive rates due to cross-reactivity of non-amphetamine drugs. Confirmatory testing required for definitive results. Current Interpretive Data was last reviewed 2022. Barbiturates, ur Not Detected CutOff 200ng/mL [facility] Comment: Interpretive Data - Barbiturates: Samples containing greater than 200 ng/mL secobarbital or other cross-reacting barbiturate compounds are reported as positive. False positive and false negative results are possible. Confirmatory testing required for definitive results. Current Interpretive Data was last reviewed 2022. Benzodiazepines, ur Screen Positive, presumptive (A) CutOff 100ng/mL [facility] Comment: Interpretive Data - Benzodiazepines: Samples containing greater than 100 ng/mL nordiazepam or other cross-reacting compounds are reported as positive. False positive and false negative results are possible. Confirmatory testing required for definitive results. Current Interpretive Data was last reviewed 2022. Cannabinoids, ur Not Detected CutOff 50 ng/mL [facility] Comment: Interpretive Data - Cannabinoids: Samples containing greater than 50 ng/mL delta-9 THC -COOH or other cross- reacting compounds are reported as positive. False positive and false negative results are possible. Confirmatory testing required for definitive results. Current Interpretive Data was last reviewed 2022. Cocaine, ur Not Detected CutOff 150ng/mL [facility] Comment: Interpretive Data - Cocaine: Samples containing greater than 150 ng/mL benzoylecgonine or other cross- reacting compounds are reported as positive. False positive and false negative results are possible. Confirmatory testing required for definitive results. Current Interpretive Data was last reviewed 2022. Fentanyl, Ur Not Detected CutOff 5 ng/mL [facility] Comment: Interpretive Data - Fentanyl: Samples containing greater than 5 ng/mL norfentanyl, fentanyl, or other cross-reacting fentanyl compounds are reported as positive. False positive and false negative results are possible. Confirmatory testing required for definitive results. Current Interpretive Data was last reviewed 2023. Methadone, ur Not Detected CutOff 300ng/mL [facility] Comment: Interpretive Data - Methadone: Samples containing greater than 300 ng/mL d,l-methadone or other cross-reacting compounds are reported as positive. False positive and false negative results are possible. Confirmatory testing required for definitive results. Current Interpretive Data was last reviewed 2022. Opiates, ur Not Detected CutOff 300ng/mL [facility] Comment: Interpretive Data - Opiates: Samples containing greater than 300 ng/mL morphine or other cross-reacting compounds are reported as positive. False positive and false negative results are possible. Confirmatory testing required for definitive results. Current Interpretive Data was last reviewed 2022. Oxycodone, ur Not Detected CutOff 100ng/mL [facility] Comment: Interpretive Data - Oxycodone: Samples containing greater than 100 ng/mL oxycodone or other cross-reacting compounds are reported as positive. False positive and false negative results are possible. Confirmatory testing required for definitive results. Current Interpretive Data was last reviewed 2022. Phencyclidine, ur Not Detected CutOff 25 ng/mL [facility] Comment: Interpretive Data - Phencyclidine: Samples containing greater than 25 ng/mL phencyclidine or other cross-reacting compounds are reported as positive. False positive and false negative results are possible. Confirmatory testing required for definitive results. Current Interpretive Data was last reviewed 2022. Urine Creatinine 123 mg/dL [facility] Comment: Interpretive Data Urine Creatinine: < 10 mg/dL is extremely dilute = or > 10 but < 20 mg/dL is dilute = or > 20 mg/dL is normal Current Interpretive Data was last revised on 2017. Urine 04/06/2024 2:05 AM PUBLIC SPACE ATTENDANT 04/06/2024 3:26 AM PUBLIC SPACE ATTENDANT Narrative [facility] - 04/06/2024 3:59 AM PUBLIC SPACE ATTENDANT Drug of Abuse screening is performed by immunoassay for medical purposes only. This is not to be used for Pain Management purposes. If Detected, confirmation testing will be performed for Amphetamines, Cocaine, Fentanyl, Methadone, Opiates, Oxycodone or Phencyclidine. us Valerie Reno MD LAB URINE ORDERABLES Fin al Result [facility] [address] [place] [address] * HIV 1/2 Antibody plus p24 Antigen Blood (04/05/2024 9:47 PM PUBLIC SPACE ATTENDANT) Pathologist [facility] [place] HIV 1/2 ab + p24 ag Nonreactive Nonreactive Comment:Nonreactive for HIV- 1 antigen and HIV-1/HIV-2 antibodies. No laboratory evidence of HIV infection. If acute HIV infection is suspected, consider testing for HIV-1 RNA. Current interpretive data was last revised on 21. Blood 04/05/2024 9:47 PM PUBLIC SPACE ATTENDANT 04/05/2024 10:21 PM PUBLIC SPACE ATTENDANT Valerie Reno MD LAB MICROBIOLOGY - GENER AL ORDERABLES Final Result [facility] [place] [address] * RPR Blood (04/05/2024 9:47 PM PUBLIC SPACE ATTENDANT) [facility] RPR Nonreactive Nonreactive Blood 04/05/2024 9:47 PM PUBLIC SPACE ATTENDANT 04/05/2024 10:21 PM PUBLIC SPACE ATTENDANT Valerie Reno MD LAB MICROBIOLOGY - GENER AL ORDERABLES Final Result Performing Organization Address City/[facility] Co de Phone Number [facility] [place] [address] * Blood culture Blood (04/05/2024 9:47 PM PUBLIC SPACE ATTENDANT) [facility] Report Final Report: No growth Blood 04/05/2024 9:47 PM PUBLIC SPACE ATTENDANT 04/05/2024 10:06 PM PUBLIC SPACE ATTENDANT Narrative [facility] - 04/10/2024 7:00 AM PUBLIC SPACE ATTENDANT Collection->Peripheral 1. Blood cultures are incubated for [...] performance characteristics have been verified by the [facility] Microbiology Laboratory. For questions about this culture, contact the Microbiology Laboratory at [phone]. Interpretive data was last revised on 23. Valerie Reno MD LAB MICROBIOLOGY - GENER AL ORDERABLES Final Result Performing Organization Address [facility] de Phone Number [facility] [place] [address] * TSH (04/05/2024 9:47 PM PUBLIC SPACE ATTENDANT) Thyroid Stimulating Hormone 1.26 0.30 - 4.20 mcIUnit/mL Blood 04/05/2024 9:47 PM PUBLIC SPACE ATTENDANT 04/05/2024 10:21 PM PUBLIC SPACE ATTENDANT Valerie Reno MD LAB BLOOD ORDERABLES Fin al Result Performing Organization Address [facility] de Phone Number [facility] [place] [address] * Vitamin B12 (04/05/2024 9:47 PM PUBLIC SPACE ATTENDANT) Vitamin B12 521 230 - 1,250 pg/mL Blood 04/05/2024 9:47 PM PUBLIC SPACE ATTENDANT 04/05/2024 10:21 PM PUBLIC SPACE ATTENDANT Valerie Reno MD LAB BLOOD ORDERABLES Fin al Result [facility] [address] [place] [address] * CT Abdomen Pelvis W Contrast (04/04/2024 12:22 PM PUBLIC SPACE ATTENDANT) Anatomical Region Laterality Modality Body N/A Computed Tomogra phy 04/04/2024 12:4 7 PM PUBLIC SPACE ATTENDANT Impressions 04/04/2024 12:47 PM PUBLIC SPACE ATTENDANT 1. Possible thickening/edema of the anal canal, poorly evaluated on CT due to redundant soft tissues in this area but could reflect postsurgical changes of reported hemorrhoidectomy and/or postoperative inflammation. Small amount of stool is seen in the rectum with no evidence of colonic obstruction. Electronically signed by: Lorena Ferro M.D. Narrative 04/04/2024 12:47 PM PUBLIC SPACE ATTENDANT EXAMINATION: CT of the abdomen and pelvis [...] microscopic and culture Urine (04/04/2024 12:06 PM PUBLIC SPACE ATTENDANT) Color, ur Straw Yellow Clarity, ur Clear Clear [facility] Specific gravity, ur 1.006 1.003 - 1.030 [facility] pH, urine 7.5 [facility] Comment: Interpretive Data U rine pH is affected by diet, medications, systemic acid-base disturbances, and renal tubular function. pH may affect urinary stone formation. For example, urine pH below 6.0 may help reduce the tendency for calcium phosphate stones and pH greater than 6.0 may reduce the tendency for uric acid stone formation. Source: [facility] [employer] Current Interpretive Data was last revised on 2017 Protein, ur ql Negative Negative [facility] Glucose, ur ql Negative Negative [facility] Ketones, ur 1+(A) Negative [facility] Bilirubin, ur Negative Negative [facility] Blood, ur Negative Negative [facility] Urobilinogen, ur <2.0 <2.0 mg/dL [facility] Nitrite, ur Negative Negative [facility] Leukocyte esterase, ur Negative Negative [facility] UA reflex comment Reflex conditions for microscopic UA and culture not met. [facility] Urine 04/04/2024 12:0 6 PM PUBLIC SPACE ATTENDANT 04/04/2024 12:15 PM PUBLIC SPACE ATTENDANT Narrative [facility] - 04/04/2024 12:19 PM PUBLIC SPACE ATTENDANT If patient unable to urinate, straight cath us Kel Pierson MD LAB MICROBIOLOGY - GENERAL ORDERABLES Final Result [facility] [address] [place] [address] * POCT creatinine (04/04/2024 10:44 AM PUBLIC SPACE ATTENDANT) [facility] Creatinine POC 0.7 0.6 - 1.1 mg/dL Blood 04/04/2024 10:4 4 AM PUBLIC SPACE ATTENDANT 04/04/2024 10:44 AM PUBLIC SPACE ATTENDANT Kel Pierson MD LAB POCT ORDERABLES - AMANDA CE Final Result [facility] [address] [place] [address] * Respiratory pathogen panel Nasopharyngeal (04/04/2024 10:40 AM PUBLIC SPACE ATTENDANT) [facility] Influenza A RNA Not Detected Not Detected Influenza B RNA Not Detected Not Detected [facility] RSV RNA Not Detected Not Detected [facility] COVID-19 RNA Not Detected Not Detected [facility] Coronavirus 229E RNA Not Detected Not Detected [facility] Coronavirus HKU1 RNA Not Detected Not Detected [facility] Coronavirus NL63 RNA Not Detected Not Detected [facility] Coronavirus OC43 RNA Not Detected Not Detected [facility] Adenovirus DNA Not Detected Not Detected [facility] Metapneumovirus RNA Not Detected Not Detected [facility] Rhinovirus/Enterov irus RNA Not Detected Not Detected [facility] Parainfluenza 1 RNA Not Detected Not Detected [facility] Parainfluenza 2 RNA Not Detected Not Detected [facility] Parainfluenza 3 RNA Not Detected Not Detected [facility] Parainfluenza 4 RNA Not Detected Not Detected [facility] B. pertussis DNA Not Detected Not Detected [facility] B. parapertussis DNA Not Detected Not Detected [facility] C. pneumoniae DNA Not Detected Not Detected [facility] M. pneumoniae DNA Not Detected Not Detected [facility] Nasopharyngeal 04/04/2024 10 :40 AM PUBLIC SPACE ATTENDANT 04/04/2024 10:52 AM PUBLIC SPACE ATTENDANT Narrative [facility] - 04/04/2024 12:14 PM PUBLIC SPACE ATTENDANT Is the Patient experiencing symptoms consistent with COVID?->Unknown Surveillance testing for transplant patient?->No Interpretive Data The [employer] FilmArray Respiratory Panel (RP2.1) assay is a [...] assay has FDA clearance for testing of RECEIVABLES SPECIALIST swabs. The performance of additional specimen types has been assessed by the performing laboratory. The performance characteristics of this assay have been determined by [facility] Molecular Infectious Disease Laboratory. Current interpretive data was last revised on 21. us Kel Pierson MD LAB MICROBIOLOGY - GENERAL ORDERABLES Final Result Performing Organization Address City/[facility] Co de Phone Number [facility] [place] [place] [address] * POCT lactate (04/04/2024 10:24 AM PUBLIC SPACE ATTENDANT) Pathologist [facility] [place] Lactate POC i-STAT 1.2 0.7 - 2.0 mmol/L Blood 04/04/2024 10:2 4 AM PUBLIC SPACE ATTENDANT 04/04/2024 10:24 AM PUBLIC SPACE ATTENDANT Kel Pierson MD LAB POCT ORDERABLES - AMANDA CE Final Result Performing Organization Address [facility] Co de Phone Number [facility] [place] [address] * POCT lactate (04/04/2024 10:00 AM PUBLIC SPACE ATTENDANT) [facility] Lactate POC i-STAT 1.5 0.7 - 2.0 mmol/L Blood 04/04/2024 10:0 0 AM PUBLIC SPACE ATTENDANT 04/04/2024 10:00 AM PUBLIC SPACE ATTENDANT Kel Pierson MD LAB POCT ORDERABLES - AMANDA CE Final Result Performing Organization Address [facility] Co de Phone Number [facility] [place] [address] * eGFR (04/04/2024 9:50 AM PUBLIC SPACE ATTENDANT) Pathologist [facility] [place] eGFR >90 >=60 mL/min/1. 73 m2 Comment: [...] last reviewed 2020. Blood 04/04/2024 9:50 AM PUBLIC SPACE ATTENDANT 04/04/2024 10:11 AM PUBLIC SPACE ATTENDANT us Hernesto Marquez MD LAB BLOOD ORDERABLES F inal Result [facility] [address] [place] [address] * Differential, auto (04/04/2024 9:50 AM PUBLIC SPACE ATTENDANT) Neutrophil abs 6.1 1.5 - 6.5 K/cumm Imm gran abs 0.0 0.0 - 0.1 K/cumm [facility] Lymphocyte abs 1.3 0.8 - 3.3 K/cumm [facility] Monocyte abs 0.4 0.2 - 0.8 K/cumm [facility] Eosinophil abs 0.1 0.0 - 0.5 K/cumm [facility] Basophil abs 0.0 0.0 - 0.1 K/cumm [facility] Neutrophil pct 77.0 % [facility] Comment: Interpretive Data Percent cell count reference ranges are not reported, since discordance with absolute values may lead to misinterpretation of CBC data. Current Interpretive Data was last revised on 2017. Imm gran pct 0.3 % [facility] Comment: Interpretive Data Percent cell count reference ranges are not reported, since discordance with absolute values may lead to misinterpretation of CBC data. Current Interpretive Data was last revised on 2017. Lymphocyte pct 16.7 % [facility] Comment: Interpretive Data Percent cell count reference ranges are not reported, since discordance with absolute values may lead to misinterpretation of CBC data. Current Interpretive Data was last revised on 2017. Monocyte pct 5.1 % [facility] Comment: Interpretive Data Percent cell count reference ranges are not reported, since discordance with absolute values may lead to misinterpretation of CBC data. Current Interpretive Data was last revised on 2017. Eosinophil pct 0.6 % [facility] Comment: Interpretive Data Percent cell count reference ranges are not reported, since discordance with absolute values may lead to misinterpretation of CBC data. Current Interpretive Data was last revised on 2017. Basophil pct 0.3 % [facility] Comment: Interpretive Data Percent cell count reference ranges are not reported, since discordance with absolute values may lead to misinterpretation of CBC data. Current Interpretive Data was last revised on 2017. Blood 04/04/2024 9:50 AM PUBLIC SPACE ATTENDANT 04/04/2024 10:11 AM PUBLIC SPACE ATTENDANT us Kel Pierson MD LAB BLOOD ORDERABLES Final Result [facility] [address] [place] [address] * (ABNORMAL) CBC with auto differential (04/04/2024 9:50 AM PUBLIC SPACE ATTENDANT) WBC 7.9 3.8 - 9.9 K/cumm Hgb 14.6 11.9 - 15.5 g/dL [facility] Hct 40.7 35.6 - 45.5 % [facility] Plt 290 150 - 400 K/cumm [facility] MPV 8.8(L) 9.1 - 12.3 fL [facility] RBC 4.61 3.90 - 5.20 M/cumm [facility] MCV 88.3 81.3 - 96.4 fL [facility] MCH 31.7 27.1 - 33.3 pg [facility] MCHC 35.9(H) 32.3 - 35.7 g/dL [facility] RDW CV 11.3 11.1 - 14.9 % [facility] RDW SD 36.2 35.7 - 48.1 fL [facility] NRBC abs 0.00 0.00 - 0.01 K/cumm [facility] Blood 04/04/2024 9:50 AM PUBLIC SPACE ATTENDANT 04/04/2024 10:11 AM PUBLIC SPACE ATTENDANT Kel Pierson MD LAB BLOOD ORDERABLES Final Result [facility] [address] [place] [address] * (ABNORMAL) Comprehensive metabolic panel (04/04/2024 9:50 AM PUBLIC SPACE ATTENDANT) Sodium 142 135 - 145 mmol/L Potassium, pl 3.9 3.3 - 4.9 mmol/L [facility] Chloride 102 97 - 110 mmol/L [facility] CO2 29 22 - 32 mmol/L [facility] Anion gap 11 2 - 15 mmol/L [facility] BUN 9 6 - 25 mg/dL [facility] Creatinine 0.71 0.60 - 1.10 mg/dL [facility] Glucose 101 70 - 199 mg/dL [facility] Comment: Interpretive Data Fasting glucose >/= [...] 2022. Calcium 9.7 8.5 - 10.3 mg/dL [facility] Bilirubin, total 0.9 0.1 - 1.2 mg/dL [facility] Protein, pl 7.0 6.5 - 8.5 g/dL [facility] Albumin 4.1 3.5 - 5.0 g/dL [facility] Alk phos 63 40 - 130 Units/L [facility] ALT 6(L) 7 - 45 Units/L [facility] AST 12 10 - 45 Units/L [facility] Blood 04/04/2024 9:50 AM PUBLIC SPACE ATTENDANT 04/04/2024 10:11 AM PUBLIC SPACE ATTENDANT Kel Pierson MD LAB BLOOD ORDERABLES Final Result [facility] [place] [address] * Surgical pathology (03/31/2024 7:30 AM PUBLIC SPACE ATTENDANT) Tissue specimen (specimen) (Skin - Cyst / Tag / Debridement) 03/31/2024 7:30 AM PUBLIC SPACE ATTENDANT Tissue specimen (specimen) (Hemorrhoid/Anal Tag) 03/31/2024 7:33 AM PUBLIC SPACE ATTENDANT Narrative PATHOLOGY WC - 04/02/2024 4:02 PM PUBLIC SPACE ATTENDANT EPIC results best viewed via link to PDF [facility] Shaylee [facility] [place] [address] Note to Patients: This report may contain [...] Gender: F : 1970 (Age: 54) Address: [address] [place], [place] [id number] Hospital #: [id number] Taken:03/31/2024 Received:03/31/2024 Reported: 04/02/2024 Patient Type: BWC EP SAME [facility]: Surgery Location: Physician(s): Hallie Kirby MD [...] Labeled B1. Jar 1. cnew/03/31/2024 10:36 PA(s): PALUA Lyles By this signature, I attest that the above diagnosis is based upon my personal examination of the slides(and/or other material). Addenda/Procedures Microscopic slide review and interpretation for this case was performed at [facility], Department of Surgical Pathology, [address], [place] [id number], [place] [address] CLIA # [id number] The performance characteristics of some immunohistochemical stains, fluorescence in-situ hybridization tests and immunophenotyping by flow cytometry cited in this report (if any) were determined by the Surgical Pathology and Flow Cytometry Departments at [facility] as part of an ongoing quality assurance qa lab analyst program and in compliance with federally [...] Surgical Pathology and Flow Cytometry Departments of [facility]. It has not been cleared or approved by the U. S. Food and Drug Administration. IMAGES AND SCANNED DOCUMENTS, IF INCLUDED, ONLY VIEWABLE IN PDF VERSION OF REPORT Keon Jasso MD LAB PATHOLOGY ORDERABLES Fin al Result Performing Organization Address [facility] Co de Phone Number PATHOLOGY [facility] [phone] * POC ISTAT (03/31/2024 6:35 AM PUBLIC SPACE ATTENDANT) [facility] K POC 4.2 3.3 - 4.9 mmol/L Comment: Interpretive Data This method is not able to assess for hemolysis, which may falsely increase potassium concentrations. If further testing is needed to evaluate this result, consider in-laboratory plasma potassium. Current Interpretive Data was last revised on 2021. POC Device Number [id number] [facility] HUA POC Performer [id number] JORDYN HUA Blood 03/31/2024 6:35 AM PUBLIC SPACE ATTENDANT 03/31/2024 6:35 AM PUBLIC SPACE ATTENDANT Keon Jasso MD LAB BLOOD ORDERABLES Final R esult Performing Organization Address City/[facility]/ZIP Co de Phone Number [facility] [address] [facility]. [place] [address] * Serum Hepatitis panel (04/18/2015 6:59 AM PUBLIC SPACE ATTENDANT) [facility] HCV ab Negative NEG HISTORICAL RESULTS Comment: Interpretive Data If confirmation is required, call Laboratory Customer Service to request sample to be sent to [facility] for Hepatitis C Virus (HCV) RNA Detection and Quantitation by Real-Time Reverse Instrument Maker-PCR (RT-PCR). Current interpretive data was last revised [...] HISTO RICAL RESULTS Serum 04/18/2015 6:59 AM PUBLIC SPACE ATTENDANT us Shant Delgado LAB BLOOD ORDERABLES Final Resul t HISTORICAL RESULTS * COLONOSCOPY REPORT (04/08/2015) Anatomical Region Laterality Modality Other Narrative 04/08/2015 Ordered by an unspecified provider. Historical Provider GI PROCEDURE ORDERABLES F inal Result from Last 3 Months or Most Recently Relevant to Health Maintenance Insurance BL CHO[place] Advance Directives For more information, please contact: [phone] * Full Code (Latest Code Status on File) Date Activated Date Inactivated Comments 04/05/2024 1:41 AM 04/11/2024 6:52 PM Care Teams Product Safety Professional Relationship Specialty Start Date End Date Miguel Ángel Oliva MD [address] [place] [address] PCP - General Internal Medicine 10/04/22 Juan Carlos Bangura MD Referring Physician Neurology 09/12/22 Keon Jasso MD [address] [facility] [phone] [place] [address] Surgeon Colon and Rectal Surgery 05/24/23
--- OUTSIDE RECORDS SUMMARY | 2024-06-28 12:02 | XMS_ITS | Encounter Summary ---
Author Organization [facility] Address [address] [place] [address] Care Team Providers Care Building Economist Name Role Phone Miguel Ángel Oliva MD Primary Care Provider [phone] Encounter Details Date Type Department Care Team (Late st Contact Info) Description 08/05/2021 [facility] Message Enc [facility] Medical Group Multispecialty Care - [address] [place], [place] [id number] [employer], [facility] Provider antibiotic Social History Tobacco Use [...] Sex Assigned at Female 04/24/2024 2:19 PM EPIC MANAGER Legal Sex Female 4:25 PM CDT [...] Description 06/30/2024 10:40 AM CDT Office Visit [facility] Medical [facility] Multispecialty Care - [address] [address] [address] [place] [address] Miguel Á[place] [address] [place] [address] documented as of this encounter Visit Diagnoses Not on filedocumented in this encounter Additional Health Concerns Assessment Noted Time PHQ-9 Depression Total Score: 12 022 11:55 AM CDT documented as of this encounter Care Teams Building Economist Relationship Specialty Start Date End Date Miguel Ángel Oliva MD [address] [place] [address] PCP - General INTERNAL MEDICINE 06/16/21 Nish Hunter Referring Physician 12/04/23 documented as of this encounter
--- OUTSIDE RECORDS SUMMARY | 2024-06-28 12:02 | XMS_ITS | Encounter Summary ---
Author Organization [facility] Address [facility] [place] [address] Care Team Providers Care Wash Barrel Leader Name Role Phone Miguel Ángel Oliva MD Primary Care Provider [phone] Encounter Details Date Type Department Care Team (Latest Contact Info) Description 11/24/2022 [employer] Message Enc [facility] Medical Group Multispecialty Care - [address] [address] [address] [place] [address] Miguel Á[place] [address] [place] [address] [address] [place], [place] [id number] Please schedule for your next appointment. Go [...] Sex Assigned at Female 04/24/2024 2:19 PM CHRISTIAN SCIENCE PRACTITIONER Legal Sex Female 4:25 PM CDT Gender Identity Female 05/09/2024 11:14 AM CDT Sexual Orientation Straight 05/09/2024 11 :14 AM CDT documented as of this encounter Plan of Treatment Upcoming Encounters Date Type Department Care Team (Late st Contact Info) Description 06/30/2024 10:40 AM CDT Office Visit [facility] Medical Group Multispecialty Care - [address] [address] [address] [place] [address] Miguel Ángel Oliva MD [facility] [address] [address] documented as of this encounter Visit Diagnoses Not on filedocumented in this encounter Additional Health Concerns Assessment Noted Time PHQ-9 Depression Total Score: 17 023 2:21 PM CDT documented as of this encounter Care Teams Wash Barrel Leader Relationship Specialty Start Date End Date Miguel Ángel Oliva MD [address] [place] [address] PCP - General INTERNAL MEDICINE 06/16/21 Nsih Hunter Referring Physician 12/04/23 documented as of this encounter
--- OUTSIDE RECORDS SUMMARY | 2024-06-28 12:02 | XMS_ITS | Encounter Summary ---
Author Organization [facility] - [facility] Address [facility] [place] [address] Care Team Providers Care Dependency Counselor Name Role Phone Miguel Ángel Oliva MD Primary Care Provider [phone] Encounter Details Date Type Department Care Team (Late st Contact Info) Description 03/20/2023 BodyGuardz Message Enc [facility] Medical Group Multispecialty Care - [address] [place] [address] [place], [facility] Provider Laxatives Social History Tobacco Use Types Packs/Day Years Used Date Smoking Tobacco: Every Day Cigarettes 0.3 20 Smokeless Tobacco: Never Comments:1 cig a day after l unch; counseled by Dr. Oliva. Alcohol Use Standard Drinks/Week Comments Never 0 (1 standard drink = 0.6 oz pur e alcohol) [facility] Utilities Answer Date Recorded In the past 12 months has e electric, gas, oil, or water [employer] threatened to shut off services in your [...] Never 03/13/2023 How often do you attend buddhism or buddhist serv ices? Never 03/13/2023 Do you belong to any clubs o r organizations such as buddhism groups, unions, fraternal or athletic groups, or [...] Recorded Patient Health Questionnaire-2 Score 4 09/15/2022 [facility] - Occupational Stress [...] place to sleep or slept in a jail (including now)? No 03/13/2023 Comments No Sex and Gender Information Value Date Recorded Sex Assigned at Female 04/24/2024 2:19 PM SENIOR ANDROID DEVELOPER Legal Sex Female 4:25 PM CDT Gender [...] Date Author Status Yes 03/13/2023 6:00 PM SENIOR ANDROID DEVELOPER Kasia Bourne RN Active documented in this encounter Plan of Treatment Upcoming Encounters Date Type Department Care Team (Late st Contact Info) Description 06/30/2024 10:40 AM CDT Office Visit [facility] Medical [facility] Multispecialty [address] [address] [address] [place] [address] Miguel Ángel Oliva MD [address] [place] [address] documented as of this encounter Visit Diagnoses Not on filedocumented in this encounter Additional Health Concerns Assessment Noted Time PHQ-9 Depression Total Score: 17 023 2:21 PM CDT documented as of this encounter Care Teams Dependency Counselor Relationship Specialty Start Date End Date Miguel Ángel Oliva MD [address] [place] [address] PCP - General INTERNAL MEDICINE 06/16/21 Nish Hunter Referring Physician 12/04/23 documented as of this encounter
--- OUTSIDE RECORDS SUMMARY | 2024-06-28 12:02 | XMS_ITS | Clinical Summary ---
Author Organization [facility] Address [facility] [place] [address] Care Team Providers Care Collar Tailor Name Role Phone Miguel Ángel Oliva MD Primary Care Provider [phone] Allergies Active Allergy Reactions Criticality Noted Date [...] taking.Reported on 05/09/2024 Sodium Sulfate-Mag Sulfate-KCl (SUTAB) 0222-160-059 MG TabIndications:Ch ronic diarrhea,Upper abdominal pain Take [...] 01/30/2024 Upper abdominal pain 01/30/2024 Parkinson's disease ([facility]) 12/04/2023 Pelvic pain 06/11/2023 At high risk for falls 04/30/2023 Cervical radiculopathy 12/14/2021 Parkinsonism ([facility]) 12/13/2021 Recurrent major depressive disorder 07/20/2021 Overview [...] (06/28/2020): Added automatically from request for surgery [id number] Rectal bleed 06/28/2020 06/15/2021 Overview (06/28/2020): Added automatically from request for surgery [id number] Hemorrhoids 06/28/2020 06/15/2021 Overview (06/28/2020): Added automatically from request for surgery [id number] Encounters Date Type Department Care Team Description 06/27/2024 Telephone [facility] Multispecialty Care - [place] [address] [facility] [address] [place] [address] Miguel Ángel Oliva MD ENT Symptoms 06/05/2024 1:07 PM CDT - 06/05/2024 11:59 PM CDT Hospital Encounter [facility] Outpatient Rehab [address] [place] [address] Sheyla Murillo, PT Miguel Ángel Oliva MD Gait Disturbance Discharge Disposition: Home or Self Care (Routine Discharge) 06/05/2024 1:07 PM CDT - 06/05/2024 11:59 PM CDT Hospital Encounter [facility] Occupational Therapy [id number] [place] [address] Heidi Matias V, OT Miguel Ángel Oliva MD Weakness Discharge Disposition: Home or Self Care (Routine Discharge) 06/05/2024 Travel 06/03/2024 1:42 PM CDT - 06/03/2024 11:59 PM CDT Hospital Encounter [facility] Outpatient Rehab [address] [place] [address] Miguel Ángel Oliva MD Arentsen, Anita A, SEMICONDUCTOR ASSEMBLER Discharge Disposition: Home or Self Care (Routine Discharge) 06/03/2024 Travel 05/29/2024 10:36 AM CDT - 05/29/2024 11:59 PM CDT Hospital Encounter [facility] Outpatient Rehab [address] [place] [address] Heidi Matias V, Migeul Ángel Guerrero MD Arentsen, Anita A, SEMICONDUCTOR ASSEMBLER Balance Problem Discharge Disposition: Home or Self Care (Routine Discharge) 05/29/2024 10:30 AM CDT - 05/29/2024 10:35 AM CDT Hospital Encounter [facility] Occupational Therapy [address] [place] [address] Heidi Matias V, Miguel Ángel Guerrero MD Weakness Discharge Disposition: Home or Self Care (Routine Discharge) 05/29/2024 Travel 05/26/2024 11:00 AM CDT - 05/26/2024 11:59 PM CDT Hospital Encounter [facility] Outpatient Rehab [address] [place] [address] Sheyla Murillo, PT Miguel Ángel Oliva MD Gait Disturbance Discharge Disposition: Home or Self Care (Routine Discharge) 05/26/2024 Travel 05/19/2024 1:00 PM CDT - 05/19/2024 11:59 PM CDT Hospital Encounter [facility] Outpatient Rehab [address] [place] [address] Sheyla Murillo, PT Miguel Ángel Oliva MD Gait Disturbance Discharge Disposition: Home or Self Care (Routine Discharge) 05/19/2024 Travel 05/09/2024 11:00 AM CDT Office Visit [facility] Medical Group Multispecialty Care - [address] [place] [address] Miguel Ángel Oliva MD Follow Up (Hospital stay and status post hemorrhoidectomy); Constipation; Urinary Problem 05/09/2024 Travel 05/06/2024 10:45 AM CDT - 05/06/2024 11:59 PM CDT Hospital Encounter [facility] Outpatient Rehab [address] [place] [address] Sheyla Murillo, PT Miguel Ángel Oliva MD Gait Disturbance Discharge Disposition: Home or Self Care (Routine Discharge) 05/06/2024 Travel 05/01/2024 Scan [facility] Scanned, [facility] 04/30/2024 10:43 AM CDT - 04/30/2024 11:59 PM CDT Hospital Encounter [facility] Occupational Therapy [address] [place] [address] Heidi Matias V, OT Miguel Ángel Oliva MD Weakness Discharge Disposition: Home or Self Care (Routine Discharge) 04/30/2024 Travel 04/23/2024 [facility] [address] [address] [place] [address] Miguel Ángel Oliva MD Hospital Discharge 04/23/2024 Telephone [facility] Outpatient Rehab [address] [place] [address] Nell Marcos, PT Referral 04/11/2024 Telephone [address] [address] [place] [address] Miguel Ángel Oliva MD Question 04/04/2024 Scan [...] 0.6 oz pur e alcohol) [facility] Utilities Answer Date Recorded In the past [...] Never 03/13/2023 How often do you attend protestant or samaritan serv ices? Never 03/13/2023 Do you belong to any clubs o r organizations such as protestant groups, unions, fraternal or athletic groups, or [...] Recorded Patient Health Questionnaire-2 Score 2 05/09/2024 [facility] Occupat ional Health - Occupational Stress [...] place to sleep or slept in a mcc (including now)? No 03/13/2023 Comments No Sex and Gender Information Value Date Recorded Sex Assigned at Female 04/24/2024 2:19 PM PATIENT ACCOUNT LIAISON Legal Sex Female 4:25 PM CDT Gender [...] Description 06/30/2024 10:40 AM CDT Office Visit [facility] Multispecialty Care [place] [address] [place] [address] [address] [place], [place] [id number] Miguel Ángel Oliva MD [address] [facility] [address] [place], [place] [id number] Health Maintenance Due Date Last Done Comments [...] 08/04/2020 Hepatitis C Completed 06/15/2021 PHQ-2 (Physician [place]) Completed 05/09/2024 Meningococcal B Vaccine Aged Out [...] - 3.740 uIU/ML 05/09/2024 8:00 PM CDT [facility] 05/09/2024 11:5 7 AM CDT Miguel Ángel Oliva MD LABORATORY Final Result Performing Organization Address City/State/[facility] Co de Phone Number [facility] [address] [place] [address], [place] [phone] * (ABNORMAL) COMPREHENSIVE METABOLIC PANEL (05/09/2024 11:57 AM CDT) SODIUM S/P/B 143 136 - 145 MMOL/L 05/09/2024 8:00 PM CDT [facility] POTASSIUM S/P/B 4.2 3.5 - 5.1 MMOL/L 05/09/2024 8:00 PM CDT [facility] CHLORIDE S/P/B 104 98 - 107 MMOL/L 05/09/2024 8:00 PM T -[facility] CO2 32.3(H) 21 - 32 MMOL/L 05/09/2024 8:00 PM CDT [facility] GLUCOSE 80 70 - 99 MG/DL 05/09/2024 8:00 PM T [facility] BUN 11 7 - 18 MG/DL 05/09/2024 8:00 PM T [facility] CREATININE S/P/B 0.49(L) 0.55 - 1.02 MG/DL 05/09/2024 8:00 PM T [facility] CALCIUM S/P/B 9.3 8.4 - 10.5 MG/DL 05/09/2024 8:00 PM T -[facility] BILIRUBIN TOTAL S/P/B 0.5 0.2 - 1.0 MG/DL 05/09/2024 8:00 PM T [facility] ALKALINE PHOSPHATASE S/P/B 54 41 - 108 U/L 05/09/2024 8:00 PM T [facility] AST 12(L) 15 - 37 U/L 05/09/2024 8:00 PM T [facility] ALT 19 14 - 59 U/L 05/09/2024 8:00 PM T [facility] TOTAL PROTEIN S/P/B 7.1 6.4 - 8.2 G/DL 05/09/2024 8:00 PM T [facility] ALBUMIN S/P/B 4.5 3.4 - 5.0 G/DL 05/09/2024 8:00 PM T [facility] ANION GAP 6.7 5 - 15 MMOL/L 05/09/2024 8:00 PM T [facility] Comment:REFERENCE RANGE NOT ESTABLISHED OSMOLALITY (CALC) 294 MOSM/KG 025 8:00 PM CDT [facility] Comment:REFERENCE RANGE NOT ESTABLISHED GFR ESTIMATE >90 >90 ML/MIN/1. 73 M2 05/09/2024 8:00 PM CDT [facility] GFR NOTES GFR REFERENCE S: 05/09/2024 8:00 PM CDT [facility] Comment: THE ESTIMATED GFR IS CALCULATED USING [...] Miguel Ángel Oliva MD LABORATORY Final Result [facility] [address] [place] [address], * (ABNORMAL) CBC W/DIFF AUTOMATED (05/09/2024 11:57 AM CDT) WBC 5.47 4.00 - 10.80 x10'3/uL 05/09/2024 7:31 PM CDT [facility] RBC 4.47 4.10 - 5.40 x10'6/uL 05/09/2024 7:31 PM CDT [facility] HGB 14.2 12.0 - 16.0 G/DL 05/09/2024 7:31 PM CDT [facility] HCT 41.6 36.0 - 47.0 % 05/09/2024 7:31 PM CDT [facility] MCV 93.1 78.0 - 100.0 FL 05/09/2024 7:31 PM CDT [facility] MCH 31.8(H) 27.0 - 31.0 PG 05/09/2024 7:31 PM CDT [facility] MCHC 34.1 33.0 - 36.0 G/DL 05/09/2024 7:31 PM CDT [facility] RDW 12.2 11.5 - 14.5 % 05/09/2024 7:31 PM CDT [facility] PLT 259 150 - 350 x10'3/uL 05/09/2024 7:31 PM CDT [facility] MPV 9.0 7.4 - 10.4 FL 05/09/2024 7:31 PM CDT -[facility] DIFFERENTIAL TYPE AUTOMATED DIFFERENTIAL 05/09/2024 7:31 PM CDT [facility] NEUTROPHILS % 64.2 % 05/09/2024 7:31 PM CDT [facility] LYMPHOCYTES % 29.6 % 05/09/2024 7:31 PM CDT [facility] MONOCYTES % 4.9 % 05/09/2024 7:31 PM CDT -[facility] EOSINOPHILS % 1.1 % 05/09/2024 7:31 PM CDT [facility] BASOPHILS % 0.2 % 05/09/2024 7:31 PM CDT [facility] IMMATURE GRANS % 0.0 % 05/09/2024 7:31 PM CDT [facility] ABS. NEUTROPHILS 3.51 1.60 - 8.30 x10'3/uL 05/09/2024 7:31 PM CDT [facility] ABS. LYMPHOCYTES 1.62 0.80 - 4.70 x10'3/uL 05/09/2024 7:31 PM CDT [facility] ABS. MONOCYTES 0.27 0.00 - 1.50 x10'3/uL 05/09/2024 7:31 PM CDT [facility] ABS. EOSINOPHILS 0.06 0.00 - 0.40 x10'3/uL 05/09/2024 7:31 PM CDT [facility] ABS. BASOPHILS 0.01 0.00 - 0.20 x10'3/uL 05/09/2024 7:31 PM CDT [facility] ABS. IMMATURE GRANULOCYTES 0.00 0.00 - 0.03 x10'3/uL 05/09/2024 7:31 PM CDT [facility] 05/09/2024 11:5 7 AM CDT Miguel Ángel Oliva MD LABORATORY Final Result Performing Organization Address City/Va Hospital/ZIP Co de Phone Number [facility] [address] [place] [address], [place] [phone] * HEPATITIS C ANTIBODY (06/15/2021 12:28 PM CDT) HEPATITIS C AB NON-REACTI VE NON-REACT KISHA 06/15/2021 9:[address] [facility] Comment: ANTIBODIES TO HCV NOT DETECTED. DOES NOT EXCLUDE THE POSSIBILITY OF EXPOSURE TO HCV. 06/15/2021 12:2 8 PM CDT Miguel Ángel Oliva MD LABORATORY Final Result [facility] [address] [place] [address], [place] [phone] [id number] * COLONOSCOPY (08/04/2020) Documents Scanned SCANNING Final Result [facility] ONBASE from Last 3 Months or Most Recently Relevant to Health Maintenance Insurance [facility] BLUE SHIELD MEDICAID Advance Directives * Full Code (Latest Code Status on File) Date Activated Date Inactivated Comments 03/13/2023 3:16 PM 03/15/2023 3:16 PM Care Teams Collar Tailor Relationship Specialty Start Date End Date Miguel Ángel Oliva MD [address] [facility] [address] [place] [address] PCP - General INTERNAL MEDICINE 06/16/21 Nish Hunter Referring Physician 12/04/23
--- OUTSIDE RECORDS SUMMARY | 2024-06-28 12:02 | XMS_ITS | Encounter Summary ---
Author Organization [facility] Facility Care Team Providers Care Asset Accountant Name Role Phone Griffin Banks MD Primary Care Provider [phone] Juan Carlos Bangura MD Unavailable [phone] Miguel Ángel Oliva MD Primary Care Provider [phone] Keon Jasso MD Unavailable Encounter Details Date Type Department Care Team (Latest Contact Info) Description 02/17/2015 Orders Only [facility] CLINCONV ProviderYann MD [address] [place] [address] Social History Tobacco Use Types Packs/Day Years Used Date Smoking Tobacco: Never Assessed Comments Unknown Sex and Gender Information Value Date Recorded Sex Assigned at Not on file Legal Sex Female 7:08 AM SENIOR ACCOUNTS PAYABLE SPECIALIST Gender Identity Not on file Sexual Orientation Not on file documented as of this encounter Plan of Treatment Not on file documented as of this encounter Procedures Procedure Name Priority Date/Time Associated Diagnosis Comments SCAN - LABS 03/05/2015 12:00 AM SENIOR ACCOUNTS PAYABLE SPECIALIST documented in this encounter Results * SCAN - LABS (03/05/2015 12:00 AM SENIOR ACCOUNTS PAYABLE SPECIALIST) Narrative 03/05/2015 12:00 AM SENIOR ACCOUNTS PAYABLE SPECIALIST Ordered by an unspecified provider. us Historical Provider Final Res ult documented in this encounter Visit Diagnoses Not on filedocumented in this encounter Additional Health Concerns Infection Onset Date Last Indicated Resolved Time COVID: Suspected 04/04/2024 04/04/2024 04/04/2024 12:15 PM SENIOR ACCOUNTS PAYABLE SPECIALIST documented as of this encounter Care Teams Asset Accountant Relationship Specialty Start Date End Date Griffin Banks MD [address] [facility] [address] [place] [address] PCP - General 06/12/16 10/03/22 Miguel Ángel Oliva MD [address] [place] [address] PCP - General Internal Medicine 10/04/22 Juan Carlos Bangura MD [address] [facility] [address] [place] [address] Referring Physician Neurology 09/12/22 Keon Jasso MD [id number] [place] [address] Surgeon Colon and Rectal Surgery 05/24/23 documented as of this encounter
--- OUTSIDE RECORDS SUMMARY | 2024-06-28 12:02 | XMS_ITS | Encounter Summary ---
Author Organization [facility] Address [address] [place] [address] Care Team Providers Care Associate Store Director Name Role Phone Carlyn Mcmahon MD Primary Care Provider [phone] Miguel Ángel Oliva MD Primary Care Provider [phone] Encounter Details Date Type Department Care Team (Late st Contact Info) Description 11/29/2020 Prep for Procedure [facility] Day [facility] [address] [place] [address] Mireya Cardenas MD [address] [facility] [address] [place], [place] [address] Social History Tobacco Use Types Packs/Day Years [...] Sex Assigned at Female 04/24/2024 2:19 PM GENERAL ASSISTANT Legal Sex Female 4:25 PM CDT Gender [...] Description 06/30/2024 10:40 AM CDT Office Visit [facility] Multispecialty Care - [place] [address] [address] [address] [place] [address] Miguel Ángel Oliva MD [address] [facility] [address] [place] [address] documented as of this encounter Results * PRE-SURGICAL/PRE-PROCEDURE CORONAVIRUS (COVID 19) (12/05/2020 9:06 AM CDT) SPECIMEN SOURCE NASAL 8:48 AM CDT [facility] CORONAVIRUS SARS COV 2 PCR (RESP) NEGATIVE NEGATIVE 12/06/2020 8:26 PM CDT [facility] Comment: THE SARS-CoV-2 TEST HAS BEEN AUTHORIZED BY THE FDA UNDER AN EUA FOR USE BY AUTHORIZED LABORATORIES. PERFORMED BY NUCLEIC ACID AMPLIFICATION PCR FIRST TEST UNKNOWN 12/05/2020 8:48 AM CDT [facility] EMPLOYED IN HEALTHCARE NO 12/05/2020 8:48 AM CDT [facility] SYMPTOMATIC DEFINED BY CDC UNKNOWN 12/05/2020 8:48 AM CDT [facility] HOSPITALIZATION STATUS NO 12/05/2020 8:48 AM CDT [facility] PATIENT IN ICU NO 12/05/2020 8:48 AM CDT [facility] RESIDENT OF [facility] NO 12/05/2020 8:48 AM CDT [facility] NOT 12/05/2020 8:48 AM CDT [facility] NASAL STRUCTURE / Unknown 12/05/2020 9:06 AM CDT Mireya Cardenas MD MICROBIOLOGY - GENERAL ORDER BELLO Final Result [facility] [address] [place] [address], [place] [phone] [facility] [address] [place] [address], [place] [phone] documented in this encounter Visit Diagnoses Diagnosis [...] Rule Out 02/04/2021 02/04/2021 02/05/2021 2:31 PM GENERAL ASSISTANT documented as of this encounter Care Teams Associate Store Director Relationship Specialty Start Date End Date Carlyn Mcmahon MD [address] [place] [address] PCP - General FAMILY PRACTICE 06/24/20 06/15/21 Miguel Ángel Oliva MD [address] [place] [address] PCP - General INTERNAL MEDICINE 06/16/21 Nish Hunter Referring Physician 12/04/23 documented as of this encounter
--- OUTSIDE RECORDS SUMMARY | 2024-06-28 12:02 | XMS_ITS | Encounter Summary ---
Author Organization [facility] Address [facility] [place] [address] Care Team Providers Care Functional Mental Disability Teacher Name Role Phone Miguel Ángel Oliva MD Primary Care Provider [phone] Encounter Details Date Type Department Care Team (Late st Contact Info) Description 11/23/2021 NextMedium Message Enc [facility] Multispecialty Care - [address] [place], [place] [address] [employer] Provider xray result Social History Tobacco Use [...] Sex Assigned at Female 04/24/2024 2:19 PM LEASING SALES CONSULTANT Legal Sex Female 4:25 PM [...] Description 06/30/2024 10:40 AM CDT Office Visit [facility] Multispecialty Care - [place] [address] [address] [place] [address] Miguel Ángel Oliva MD [address] [place] [address] documented as of this encounter Visit Diagnoses Not on filedocumented in this encounter Additional Health Concerns Assessment Noted Time PHQ-9 Depression Total Score: 20 022 11:52 AM CDT documented as of this encounter Care Teams Functional Mental Disability Teacher Relationship Specialty Start Date End Date Miguel Ángel Oliva MD [address] [place] [address] PCP - General INTERNAL MEDICINE 06/16/21 Nish Hunter Referring Physician 12/04/23 documented as of this encounter
--- OUTSIDE RECORDS SUMMARY | 2024-06-28 12:02 | XMS_ITS | Encounter Summary ---
Author Organization [facility] Address [address] [place] [address] Care Team Providers Care Medical Office Technologist Name Role Phone Carlyn Mcmahon MD Primary Care Provider [phone] Miguel Ángel Oliva MD Primary Care Provider [phone] Encounter Details Date Type Department Care Team (Late st Contact Info) Description 07/22/2020 Prep for Procedure [facility] Day Services [address] [place], [place] [id number] Chavo Delgado MD [address] [address] Social History Tobacco Use Types Packs/Day Years [...] Sex Assigned at Female 04/24/2024 2:19 PM BRATTICE BUILDER Legal Sex Female 4:25 PM CDT Gender [...] Description 06/30/2024 10:40 AM CDT Office Visit [facility] - [place] [address] [facility] [facility] [address] [place] [address] Miguel Ángel Oliva MD [address] [facility] [address] [place] [address] documented as of this encounter Results * PRE-SURGICAL/PRE-PROCEDURE CORONAVIRUS (COVID 19) (10/10/2020 9:55 AM CDT) SPECIMEN SOURCE NASAL 9:49 AM CDT [facility] CORONAVIRUS SARS COV 2 PCR (RESP) NEGATIVE NEGATIVE 10/12/2020 1:12 AM CDT [facility] Comment: THE SARS-CoV-2 TEST HAS BEEN AUTHORIZED BY THE FDA UNDER AN EUA FOR USE BY AUTHORIZED LABORATORIES. PERFORMED BY NUCLEIC ACID AMPLIFICATION PCR FIRST TEST NO 10/10/2020 9:49 AM CDT [facility] EMPLOYED IN HEALTHCARE NO 10/10/2020 9:49 AM CDT [facility] SYMPTOMATIC DEFINED BY CDC NO 10/10/2020 9:49 AM CDT [facility] DATE OF SYMPTOM ONSET UNKNOWN 10/10/2020 12:10 PM CDT [facility] HOSPITALIZATION STATUS NO 10/10/2020 9:49 AM CDT [facility] PATIENT IN ICU NO 10/10/2020 9:49 AM CDT [facility] RESIDENT OF [facility] NO 10/10/2020 9:49 AM CDT [facility] NOT 10/10/2020 9:49 AM CDT [facility] NASOPHARYNGEAL SWAB / Unknown 10/10/2020 9:55 AM CDT Mireya Cardenas MD MICROBIOLOGY - GENERAL ORDER BELLO Final Result [facility] [address] [place] [address], [place] [phone] [facility] [address] [place] [address], [place] [phone] * PRE-SURGICAL/PRE-PROCEDURE CORONAVIRUS (COVID 19) (08/01/2020 7:59 AM CDT) SPECIMEN SOURCE NASOPHARYNGEAL SWAB 08/01/2020 7:55 AM CDT [facility] CORONAVIRUS SARS COV 2 PCR (RESP) NEGATIVE NEGATIVE 08/02/2020 6:27 PM CDT [facility] Comment: THE SARS-CoV-2 TEST HAS BEEN AUTHORIZED BY THE FDA UNDER AN EUA FOR USE BY AUTHORIZED LABORATORIES. PERFORMED BY NUCLEIC ACID AMPLIFICATION PCR FIRST TEST UNKNOWN 08/01/2020 7:55 AM CDT [facility] EMPLOYED IN HEALTHCARE UNKNOWN 08/01/2020 7:55 AM CDT [facility] SYMPTOMATIC DEFINED BY CDC UNKNOWN 08/01/2020 7:55 AM CDT [facility] DATE OF SYMPTOM ONSET UNKNOWN 08/01/2020 8:08 AM CDT [facility] HOSPITALIZATION STATUS NO 08/01/2020 7:55 AM CDT [facility] PATIENT IN ICU NO 08/01/2020 7:55 AM CDT [facility] RESIDENT OF [facility] NO 08/01/2020 7:55 AM CDT [facility] NOT 08/01/2020 7:55 AM CDT [facility] NASOPHARYNGEAL SWAB / Unknown 08/01/2020 7:59 AM CDT Chavo Delgado MD MICROBIOLOGY - GENERAL ORDERABLE S Final Result [facility] [address] [place] [address], [place] [phone] [facility] [address] [place] [address], [place] [phone] documented in this encounter Visit Diagnoses Diagnosis [...] Rule Out 02/04/2021 02/04/2021 02/05/2021 2:31 PM BRATTICE BUILDER documented as of this encounter Care Teams Medical Office Technologist Relationship Specialty Start Date End Date Carlyn Mcmahon MD [address] [place] [address] PCP - General FAMILY PRACTICE 06/24/20 06/15/21 Miguel Ángel Oliva MD [address] [address] PCP - General INTERNAL MEDICINE 06/16/21 Nish Hunter Referring Physician 12/04/23 documented as of this encounter
--- OUTSIDE RECORDS SUMMARY | 2024-06-28 12:02 | XMS_ITS | Encounter Summary ---
Author Organization [facility] Address [facility] [place] [address] Care Team Providers Care Shredding Machine Tender Name Role Phone Miguel Ángel Oliva MD Primary Care Provider Encounter Details Date Type Department Care Team (Late st Contact Info) Description 09/26/2021 [employer] Message Enc [facility] Multispecialty Care - [address] [place], [place] [id number] [place], [facility] Provider Lab result Social History Tobacco Use [...] Sex Assigned at Female 04/24/2024 2:19 PM M[employer]Y MARKET CLERK Legal Sex Female 4:25 PM CDT [...] Description 06/30/2024 10:40 AM CDT Office Visit [facility] Multispecialty Care - [place] [address] [address] [place] [address] Miguel Ángel Oliva MD [address] [place] [address] documented as of this encounter Visit Diagnoses Not on filedocumented in this encounter Additional Health Concerns Assessment Noted Time PHQ-9 Depression Total Score: 20 022 11:52 AM CDT documented as of this encounter Care Teams Shredding Machine Tender Relationship Specialty Start Date End Date Miguel Ángel Oliva MD [address] [place] [id number] PCP - General INTERNAL MEDICINE 06/16/21 Nish Hunter Referring Physician 12/04/23 documented as of this encounter
--- OUTSIDE RECORDS SUMMARY | 2024-06-28 12:02 | XMS_ITS | Referral Summary ---
Author Organization [place] [id number] Address [facility] [place] [address] Care Team Providers Care Panel Instrument Repairer Name Role Phone Juan Carlos Bangura MD Unavailable [phone] Miguel Ángel Oliva MD Primary Care Provider [phone] Keon Jasso MD Unavailable [phone] Encounters Date Type Department Care Team Description 06/24/2024 11:30 AM CDT Office Visit [facility] Movement Disorders [address] [place] [address] [address]th [place] [address] Samantha Roberson, MARISOL Parkinson's disease, unspecified whether dyskinesia present, unspecified whether manifestations fluctuate (HCC) (Primary Dx); Cervical dystonia 06/23/2024 Orders Only [facility] Movement Disorders [address] [place] [address] 6th [place] [address] [place] [address] Nish Hunter MD PhD Cervical dystonia 06/17/2024 9:20 AM CDT Procedure visit [facility] Movement Disorders [address] [place] [address] 6th [place] [address] [place] [address] Nish Hunter MD PhD Cervical dystonia (Primary Dx); Parkinson's disease with dyskinesia and fluctuating manifestations (HCC) 06/09/2024 Orders Only [facility] Movement Disorders [address] [place] [address] 6th [place] [address] [place] [address] Nish Hunter MD PhD Parkinson's disease with dyskinesia and fluctuating manifestations (HCC) (Primary Dx) 05/08/2024 Telephone [facility] Scheduling [address] [place] [address] Carlos Garzaa 05/05/2024 Telephone [facility] Scheduling [address] [place] [address] Nish Hunter MD PhD Scheduling Appointments 05/01/2024 3:15 PM CDT Office Visit [facility] Surgery [address] [facility] 2nd Floor [address] [place] [address] Keon Jasso MD Hemorrhoids, unspecified hemorrhoid type (Primary Dx) 04/04/2024 9:26 AM CHALK TESTER - 04/11/2024 2:52 PM CHALK TESTER Hospital Encounter [facility] [address] [place] [address] Kel Pierson MD Lacy, Timur Copeland MD Ma, MD David Linn Natalia, MD Choi, Cheuk Ho Jeffrey, MD Acute post-operative pain (Primary Dx); Other constipation; Urinary retention Discharge Disposition: Discharge to an Rehab facility 03/31/2024 7:15 AM CHALK TESTER - 03/31/2024 8:00 AM CHALK TESTER Surgery [facility] Operating Room [address] [place] [address] Keon Jasso MD EXAM UNDER ANESTHESIA - RECTUM, RIGID PROCTOSCOPE 03/31/2024 7:06 AM CHALK TESTER Anesthesia Event [facility] Operating Room [address] [place] [address] Randall Arriaga MD Wiethuchter, Kelli P., MARISOL 03/31/2024 5:40 AM CHALK TESTER - 03/31/2024 9:24 AM CHALK TESTER Hospital Encounter [facility] Operating Room [address] [place] [address] Keon Jasso MD Hemorrhoids, unspecified hemorrhoid type; [...] 5 Assessment & Plan (04/05/2024 4:14 PM CHALK TESTER): - Continue home PPI equivalent HLD (hyperlipidemia) 04/05/2024 Assessment & Plan (04/05/2024 4:14 PM CHALK TESTER): - Continue home Crestor HTN (hypertension) 04/05/2024 Assessment & Plan (04/05/2024 4:14 PM CHALK TESTER): - Continue home triamterene hydrochlorothiazide. MARISOL (generalized anxiety disorder) 04/05/2024 Assessment & Plan (04/05/2024 4:14 PM CHALK TESTER): History of generalized anxiety disorder/depression - Continue home Xanax as needed. Urinary retention 04/05/2024 Assessment & Plan (04/08/2024 4:30 PM CHALK TESTER): Likely related to recent botox injections to [...] 04/05/2024 Assessment & Plan (04/08/2024 4:31 PM CHALK TESTER): Main complaint is dizziness. She has a [...] 04/04/2024 Assessment & Plan (04/08/2024 4:32 PM CHALK TESTER): Presented with postoperative perianal pain the setting [...] testing for now as it would not warp changer. She continues to have significant wearing [...] encounter Assessment & Plan (04/05/2024 4:14 PM CHALK TESTER): - Continue on carbidopa levodopa Assessment & [...] testing for now as it would not warp changer. We previously discussed that there are [...] testing for now as it would not warp changer. I also suspect there is a functional overlay to some of her symptoms and exam findings. We discussed that there are no definitive diagnostic tests for PD, but a skin biopsy might be supportive and provide more clarity if she is interested (but would again likely not warp changer). She is not interested at this [...] 03/17/2015 Assessment & Plan (04/05/2024 4:06 PM CHALK TESTER): History of Meniere's disease - Continue home [...] on file Legal Sex Female 7:08 AM CHALK TESTER Gender Identity Not on file Sexual Orientation Not on file Last Filed Vital Signs Vital Sign Reading Time Taken Comments Blood Pressure 151/89 06/24/2024 11:26 AM CDT Pulse 56 06/24/2024 11:26 AM CDT Temperature 36.8 C (98.3 F) 06/24/2024 11:26 AM CDT Respiratory Rate 18 04/11/2024 8:17 AM CHALK TESTER Oxygen Saturation 100% 05/01/2024 2:44 PM CDT Inhaled Oxygen Concentration - - Weight 58.1 kg (128 lb) 06/24/2024 11:26 AM CDT Height 167.6 cm (5' 6 ) 06/24/2024 11:26 AM CDT Body Mass Index 20.66 06/24/2024 11:26 AM CDT Plan of Treatment Not on file Procedures Procedure Name Priority Date/Time Associated Diagnosis Comments EGFR Routine 04/07/2024 9:38 PM CHALK TESTER BASIC METABOLIC PANEL Routine 04/07/2024 9:38 PM CHALK TESTER URINALYSIS, MICROSCOPIC ONLY Routine 04/07/2024 7:52 AM CHALK TESTER URINALYSIS AND REFLEX TO MICROSCOPIC AND CULTURE Routine 04/07/2024 7:52 AM CHALK TESTER EGFR Routine 04/06/2024 9:35 PM CHALK TESTER DIFFERENTIAL AUTO Routine 04/06/2024 9:3 5 PM CHALK TESTER CBC WITH AUTO DIFFERENTIAL Routine 04/06/2024 9:35 PM CHALK TESTER BASIC METABOLIC PANEL Routine 04/06/2024 9:35 PM CHALK TESTER XR ABDOMEN AP 1 VIEW IP Routine 04/06/2024 2:16 PM CHALK TESTER XR CHEST 1 VIEW IP Routine 04/06/2024 2:16 PM CHALK TESTER ECG 12-LEAD STAT 04/06/2024 1:12 PM CHALK TESTER DRUGS OF ABUSE SCREEN, URINE WITH REFLEX CONFIRMATION Routine 04/06/2024 2:05 AM CHALK TESTER TSH Routine 04/05/2024 9:47 PM CHALK TESTER VITAMIN B12 Routine 04/05/2024 9:47 PM CHALK TESTER RPR Routine 04/05/2024 9:47 PM CHALK TESTER HIV 1/2 ANTIBODY PLUS P24 ANTIGEN Routine 04/05/2024 9:47 PM CHALK TESTER BLOOD CULTURE Routine 04/05/2024 9:[address] ABDOMEN PELVIS W CONTRAST ED 04/04/2024 12:22 PM CHALK TESTER URINALYSIS AND REFLEX TO MICROSCOPIC AND CULTURE STAT 04/04/2024 12:06 PM CHALK TESTER POCT CREATININE - DEVICE Routine 04/04/2024 10:44 AM CHALK TESTER RESPIRATORY PATHOGEN PANEL STAT 04/04/2024 10:40 AM CHALK TESTER POCT LACTATE - DEVICE Routine 04/04/2024 10:24 AM CHALK TESTER POCT LACTATE - DEVICE Routine 04/04/2024 10:00 AM CHALK TESTER EGFR STAT 04/04/2024 9:50 AM CHALK TESTER DIFFERENTIAL AUTO STAT 04/04/2024 9:5 0 AM CHALK TESTER COMPREHENSIVE METABOLIC PANEL STAT 04/04/2024 9:50 AM CHALK TESTER CBC WITH AUTO DIFFERENTIAL STAT 04/04/2024 9:50 AM CHALK TESTER SURGICAL PATHOLOGY Routine 03/31/2024 7: 30 AM CHALK TESTER Hemorrhoids, unspecified hemorrhoid type Spastic pelvic floor syndrome INJECTION BOTOX SPHINCTER 03/31/2024 7:11 AM CHALK TESTER Hemorrhoids, unspecified hemorrhoid type Spastic pelvic floor syndrome HEMORRHOIDECTOMY 03/31/2024 7:11 AM CHALK TESTER Hemorrhoids, unspecified hemorrhoid type Spastic pelvic floor syndrome EXAM UNDER ANESTHESIA - RECTUM 03/31/2024 7:11 AM CHALK TESTER Hemorrhoids, unspecified hemorrhoid type Spastic pelvic floor syndrome POC ISTAT Routine 03/31/2024 6:35 AM CHALK TESTER SERUM HEPATITIS PANEL Routine 04/18/2015 6:59 AM CHALK TESTER COLONOSCOPY REPORT 04/08/2015 from Last 3 Months or Most Recently Relevant to Health Maintenance Results * eGFR (04/07/2024 9:38 PM CHALK TESTER) Pathologist [facility] eGFR >90 >=60 [...] last reviewed 2020. Blood 04/07/2024 9:38 PM CHALK TESTER 04/07/2024 10:07 PM CHALK TESTER us Valerie Reno MD LAB BLOOD ORDERABLES Fin al Result Performing Organization Address City/State/[facility] Co de Phone Number [facility] Department [place] [address] * Basic metabolic panel (04/07/2024 9:38 PM CHALK TESTER) Pathologist [facility] Sodium 143 135 - 145 mmol/L Potassium, pl 3.4 3.3 - 4.9 mmol/L [facility] Chloride 104 97 - 110 mmol/L [facility] CO2 29 22 - 32 mmol/L [facility] Anion gap 10 2 - 15 mmol/L [facility] BUN 6 6 - 25 mg/dL [facility] Creatinine 0.60 0.60 - 1.10 mg/dL [facility] Glucose 88 70 - 199 mg/dL [facility] Comment: Interpretive Data Fasting glucose >/= [...] Calcium 9.2 8.5 - 10.3 mg/dL [facility] Blood 04/07/2024 9:38 PM CHALK TESTER 04/07/2024 10:07 PM CHALK TESTER us Valerie Reno MD LAB BLOOD ORDERABLES Fin al Result [facility] Department [place] [address] * (ABNORMAL) Urinalysis reflex to microscopic and culture Urine (04/07/2024 7:52 AM CHALK TESTER) Color, ur Straw Yellow Clarity, ur Clear Clear [facility] Specific gravity, ur 1.009 1.003 - 1.030 [facility] pH, urine 6.0 [facility] Comment: Interpretive Data U rine pH is affected by diet, medications, systemic acid-base disturbances, and renal tubular function. pH may affect urinary stone formation. For example, urine pH below 6.0 may help reduce the tendency for calcium phosphate stones and pH greater than 6.0 may reduce the tendency for uric acid stone formation. Source: [facility] Current Interpretive Data was last revised on 2017 Protein, ur ql Negative Negative [facility] Glucose, ur ql Negative Negative [facility] Ketones, ur Negative Negative [facility] Bilirubin, ur Negative Negative [facility] Blood, ur Negative Negative [facility] Urobilinogen, ur <2.0 <2.0 mg/dL [facility] Nitrite, ur Positive(A) Negative [facility] Leukocyte esterase, ur Negative Negative [facility] UA reflex comment Reflex to microscopic UA will be performed. [facility] Urine 04/07/2024 7:52 AM CHALK TESTER 04/07/2024 8:03 AM CHALK TESTER us Valerie Reno MD LAB MICROBIOLOGY - GENER AL ORDERABLES Final Result Performing Organization Address City/[facility] Co de Phone Number [facility] Department [place] [address] * (ABNORMAL) Urinalysis, microscopic only (04/07/2024 7:52 AM CHALK TESTER) WBC, ur 6-10(A) 0 - 5 /HPF RBC, ur 0-2 0 - 2 /HPF [facility] Bacteria, ur Trace(A) [facility] Mucous, ur Present(A) [facility] Culture Reflex Comment Reflex conditions for urine culture (WBC >10) not met. [facility] Urine 04/07/2024 7:52 AM CHALK TESTER 04/07/2024 8:03 AM CHALK TESTER us Valerie Reno MD LAB URINE ORDERABLES Fin al Result Performing Organization Address [facility] Co de Phone Number [facility] Department [place] [address] * eGFR (04/06/2024 9:35 PM CHALK TESTER) eGFR >90 >=60 mL/min/1. 73 m2 Comment: [...] last reviewed 2020. Blood 04/06/2024 9:35 PM CHALK TESTER 04/06/2024 10:20 PM CHALK TESTER us Valerie Reno MD LAB BLOOD ORDERABLES Fin al Result [facility] Department [place] [address] * (ABNORMAL) Differential, auto (04/06/2024 9:35 PM CHALK TESTER) Neutrophil abs 7.2(H) 1.5 - 6.5 K/cumm Imm gran abs 0.0 0.0 - 0.1 K/cumm [facility] Lymphocyte abs 2.0 0.8 - 3.3 K/cumm [facility] Monocyte abs 0.6 0.2 - 0.8 K/cumm [facility] Eosinophil abs 0.1 0.0 - 0.5 K/cumm [facility] Basophil abs 0.0 0.0 - 0.1 K/cumm [facility] Neutrophil pct 73.2 % [facility] Comment: Interpretive Data Percent cell count reference ranges are not reported, since discordance with absolute values may lead to misinterpretation of CBC data. Current Interpretive Data was last revised on 2017. Imm gran pct 0.3 % [facility] Comment: Interpretive Data Percent cell count reference ranges are not reported, since discordance with absolute values may lead to misinterpretation of CBC data. Current Interpretive Data was last revised on 2017. Lymphocyte pct 19.9 % [facility] Comment: Interpretive Data Percent cell count reference ranges are not reported, since discordance with absolute values may lead to misinterpretation of CBC data. Current Interpretive Data was last revised on 2017. Monocyte pct 5.6 % [facility] Comment: Interpretive Data Percent cell count reference ranges are not reported, since discordance with absolute values may lead to misinterpretation of CBC data. Current Interpretive Data was last revised on 2017. Eosinophil pct 0.8 % [facility] Comment: Interpretive Data Percent cell count reference ranges are not reported, since discordance with absolute values may lead to misinterpretation of CBC data. Current Interpretive Data was last revised on 2017. Basophil pct 0.2 % [facility] Comment: Interpretive Data Percent cell count reference ranges are not reported, since discordance with absolute values may lead to misinterpretation of CBC data. Current Interpretive Data was last revised on 2017. Blood 04/06/2024 9:35 PM CHALK TESTER 04/06/2024 10:20 PM CHALK TESTER us Valerie Reno MD LAB BLOOD ORDERABLES Fin al Result [facility] Department [place] [address] * (ABNORMAL) CBC with auto differential (04/06/2024 9:35 PM CHALK TESTER) WBC 9.8 3.8 - 9.9 K/cumm Hgb 13.8 11.9 - 15.5 g/dL [facility] Comment:Result may be inaccu rate due to increased plasma turbidity. Consider redraw. Hct 36.6 35.6 - 45.5 % [facility] Plt 295 150 - 400 K/cumm [facility] MPV 8.7(L) 9.1 - 12.3 fL [facility] RBC 4.21 3.90 - 5.20 M/cumm [facility] MCV 86.9 81.3 - 96.4 fL [facility] MCH 32.8 27.1 - 33.3 pg [facility] Comment:Result may be inaccu rate due to increased plasma turbidity. Consider redraw. MCHC 37.7(H) 32.3 - 35.7 g/dL [facility] Comment:Result may be inaccu rate due to increased plasma turbidity. Consider redraw. RDW CV 11.2 11.1 - 14.9 % [facility] RDW SD 35.6(L) 35.7 - 48.1 fL [facility] NRBC abs 0.00 0.00 - 0.01 K/cumm [facility] Blood 04/06/2024 9:35 PM CHALK TESTER 04/06/2024 10:20 PM CHALK TESTER Valerie Reno MD LAB BLOOD ORDERABLES Fin al Result [facility] Department [place] [address] * (ABNORMAL) Basic metabolic panel (04/06/2024 9:35 PM CHALK TESTER) Sodium 142 135 - 145 mmol/L Potassium, pl 3.7 3.3 - 4.9 mmol/L [facility] Chloride 107 97 - 110 mmol/L [facility] CO2 26 22 - 32 mmol/L [facility] Anion gap 9 2 - 15 mmol/L [facility] BUN 6 6 - 25 mg/dL [facility] Creatinine 0.46(L) 0.60 - 1.10 mg/dL [facility] Glucose 104 70 - 199 mg/dL [facility] Comment: Interpretive Data Fasting glucose >/= [...] Calcium 9.0 8.5 - 10.3 mg/dL [facility] Blood 04/06/2024 9:35 PM CHALK TESTER 04/06/2024 10:20 PM CHALK TESTER Valerie Reno MD LAB BLOOD ORDERABLES Fin al Result [facility] Department [place] [address] * XR Abdomen Ap 1 Vw (04/06/2024 2:16 PM CHALK TESTER) Anatomical Region Laterality Modality Body, Abdomen N/A Digital Radiogra phy 04/07/2024 8:46 AM CHALK TESTER Impressions 04/07/2024 8:54 AM CHALK TESTER Mild gaseous distention of the stomach. The bowel gas pattern is otherwise within normal limits. Cholecystectomy clips. Clear lung bases. Dictated by: Ross Hollis MD PHD The radiology attending physician has personally reviewed this study, and had reviewed and/or edited this written report and agrees with it. Electronically signed by: Clayton Cedillo M.D. Narrative 04/07/2024 8:54 AM CHALK TESTER EXAMINATION: Abdomen, one view. HISTORY: Concern for [...] XR Chest 1 View (04/06/2024 2:16 PM CHALK TESTER) Anatomical Region Laterality Modality Body, Chest N/A Digital Radiogra phy 04/06/2024 3:14 PM CHALK TESTER Impressions 04/06/2024 3:14 PM CHALK TESTER No prior chest radiographs are available for comparison. The lungs are well-expanded and clear of infiltrates or effusions. There is no pneumothorax. Curvilinear lucency projecting over the left upper chest is likely a skin fold. The film should be repeated for confirmation Electronically signed by: Ollie Dash M.D. Narrative 04/06/2024 3:14 PM CHALK TESTER EXAMINATION: 1 view chest radiograph Procedure Note [...] * ECG 12 lead (04/06/2024 1:12 PM CHALK TESTER) Ventricular Rate EKG/Min 59 BPM [facility] Atrial Rate 59 BPM [facility] OH-Interval (MSEC) 134 ms [facility] QRS-Interval (MSEC) 76 ms [facility] QT-Interval (MSEC) 410 ms [facility] QTc 405 ms [facility] P [place] 44 degrees [facility] R [place] 11 degrees [facility] T [place] 54 degrees [facility] Diagnosis Sinus bradycardia Nonspecific T wave abnormality Abnormal ECG When compared with ECG of 19-MAY-2016 19:09, Nonspecific T wave abnormality, worse in Lateral leads Confirmed by JANA MEJIA M.D ([id number]) on 04/07/2024 3:30:32 PM [facility] 04/06/2024 1:12 PM CHALK TESTER 04/07/2024 3:30 PM CHALK TESTER Valerie Reno MD ECG ORDERABLES Final Re sult [facility] * (ABNORMAL) Drugs of Abuse Screen, Urine with Reflex Confirmation (04/06/2024 2:05 AM CHALK TESTER) Pathologist [facility] Amphetamine, ur Not [...] Barbiturates, ur Not Detected CutOff 200ng/mL [facility] Comment: Interpretive Data - Barbiturates: Samples containing greater than 200 ng/mL secobarbital or other cross-reacting barbiturate compounds are reported as positive. False positive and false negative results are possible. Confirmatory testing required for definitive results. Current Interpretive Data was last reviewed 2022. Benzodiazepines, ur Screen Positive, presumptive (A) CutOff 100ng/mL [facility] Comment: Interpretive Data - Benzodiazepines: Samples containing greater than 100 ng/mL nordiazepam or other cross-reacting compounds are reported as positive. False positive and false negative results are possible. Confirmatory testing required for definitive results. Current Interpretive Data was last reviewed 2022. Cannabinoids, ur Not Detected CutOff 50 ng/mL [facility] Comment: Interpretive Data - Cannabinoids: Samples containing greater than 50 ng/mL delta-9 THC -COOH or other cross- reacting compounds are reported as positive. False positive and false negative results are possible. Confirmatory testing required for definitive results. Current Interpretive Data was last reviewed 2022. Cocaine, ur Not Detected CutOff 150ng/mL [facility] Comment: Interpretive Data - Cocaine: Samples containing greater than 150 ng/mL benzoylecgonine or other cross- reacting compounds are reported as positive. False positive and false negative results are possible. Confirmatory testing required for definitive results. Current Interpretive Data was last reviewed 2022. Fentanyl, Ur Not Detected CutOff 5 ng/mL [facility] Comment: Interpretive Data - Fentanyl: Samples containing greater than 5 ng/mL norfentanyl, fentanyl, or other cross-reacting fentanyl compounds are reported as positive. False positive and false negative results are possible. Confirmatory testing required for definitive results. Current Interpretive Data was last reviewed 2023. Methadone, ur Not Detected CutOff 300ng/mL [facility] Comment: Interpretive Data - Methadone: Samples containing greater than 300 ng/mL d,l-methadone or other cross-reacting compounds are reported as positive. False positive and false negative results are possible. Confirmatory testing required for definitive results. Current Interpretive Data was last reviewed 2022. Opiates, ur Not Detected CutOff 300ng/mL [facility] Comment: Interpretive Data - Opiates: Samples containing greater than 300 ng/mL morphine or other cross-reacting compounds are reported as positive. False positive and false negative results are possible. Confirmatory testing required for definitive results. Current Interpretive Data was last reviewed 2022. Oxycodone, ur Not Detected CutOff 100ng/mL [facility] Comment: Interpretive Data - Oxycodone: Samples containing greater than 100 ng/mL oxycodone or other cross-reacting compounds are reported as positive. False positive and false negative results are possible. Confirmatory testing required for definitive results. Current Interpretive Data was last reviewed 2022. Phencyclidine, ur Not Detected CutOff 25 ng/mL [facility] Comment: Interpretive Data - Phencyclidine: Samples containing greater than 25 ng/mL phencyclidine or other cross-reacting compounds are reported as positive. False positive and false negative results are possible. Confirmatory testing required for definitive results. Current Interpretive Data was last reviewed 2022. Urine Creatinine 123 mg/dL [facility] Comment: Interpretive Data Urine Creatinine: < 10 mg/dL is extremely dilute = or > 10 but < 20 mg/dL is dilute = or > 20 mg/dL is normal Current Interpretive Data was last revised on 2017. Urine 04/06/2024 2:05 AM CHALK TESTER 04/06/2024 3:26 AM CHALK TESTER Narrative [facility] - 04/06/2024 3:59 AM CHALK TESTER Drug of Abuse screening is performed by immunoassay for medical purposes only. This is not to be used for Pain Management purposes. If Detected, confirmation testing will be performed for Amphetamines, Cocaine, Fentanyl, Methadone, Opiates, Oxycodone or Phencyclidine. us Valerie Reno MD LAB URINE ORDERABLES Fin al Result [facility] [place] [address] * HIV 1/2 Antibody plus p24 Antigen Blood (04/05/2024 9:47 PM CHALK TESTER) [facility] HIV 1/2 ab + p24 ag Nonreactive Nonreactive Comment:Nonreactive for HIV- 1 antigen and HIV-1/HIV-2 antibodies. No laboratory evidence of HIV infection. If acute HIV infection is suspected, consider testing for HIV-1 RNA. Current interpretive data was last revised on 21. Blood 04/05/2024 9:47 PM CHALK TESTER 04/05/2024 10:21 PM CHALK TESTER Valerie Reno MD LAB MICROBIOLOGY - GENER AL ORDERABLES Final Result Performing Organization Address City/[facility] [place] [address] * RPR Blood (04/05/2024 9:47 PM CHALK TESTER) [facility] RPR Nonreactive Nonreactive Blood 04/05/2024 9:47 PM CHALK TESTER 04/05/2024 10:21 PM CHALK TESTER Valerie Reno MD LAB MICROBIOLOGY - GENER AL ORDERABLES Final Result Performing Organization Address City/[facility] [place] [address] * Blood culture Blood (04/05/2024 9:47 PM CHALK TESTER) [facility] Report Final Report: No growth Blood 04/05/2024 9:47 PM CHALK TESTER 04/05/2024 10:06 PM CHALK TESTER Narrative [facility] - 04/10/2024 7:00 AM CHALK TESTER Collection->Peripheral 1. Blood cultures are incubated for [...] performance characteristics have been verified by the [facility] Microbiology Laboratory. For questions about this culture, contact the Microbiology Laboratory at [phone]. Interpretive data was last revised on 23. Valerie Reno MD LAB MICROBIOLOGY - GENER AL ORDERABLES Final Result Performing Organization Address City/[facility]/ZIP Co de Phone Number [facility] Department [place] [address] * TSH (04/05/2024 9:47 PM CHALK TESTER) Thyroid Stimulating Hormone 1.26 0.30 - 4.20 mcIUnit/mL Blood 04/05/2024 9:47 PM CHALK TESTER 04/05/2024 10:21 PM CHALK TESTER Result [facility] Valerie Reno MD LAB BLOOD ORDERABLES Fin al Result [facility] Department [place] [address] * Vitamin B12 (04/05/2024 9:47 PM CHALK TESTER) Vitamin B12 521 230 - 1,250 pg/mL Blood 04/05/2024 9:47 PM CHALK TESTER 04/05/2024 10:21 PM CHALK TESTER Result [facility] Valerie Reno MD LAB BLOOD ORDERABLES Fin al Result [facility] Department [place] [address] * CT Abdomen Pelvis W Contrast (04/04/2024 12:22 PM CHALK TESTER) Anatomical Region Laterality Modality Body N/A Computed Tomogra phy 04/04/2024 12:4 7 PM CHALK TESTER Impressions 04/04/2024 12:47 PM CHALK TESTER 1. Possible thickening/edema of the anal canal, poorly evaluated on CT due to redundant soft tissues in this area but could reflect postsurgical changes of reported hemorrhoidectomy and/or postoperative inflammation. Small amount of stool is seen in the rectum with no evidence of colonic obstruction. Electronically signed by: Lorena Ferro M.D. Narrative 04/04/2024 12:47 PM CHALK TESTER EXAMINATION: CT of the abdomen and pelvis [...] microscopic and culture Urine (04/04/2024 12:06 PM CHALK TESTER) Color, ur Straw Yellow Clarity, ur Clear Clear [facility] Specific gravity, ur 1.006 1.003 - 1.030 [facility] pH, urine 7.5 [facility] Comment: Interpretive Data U rine pH [...] on 2017 Protein, ur ql Negative Negative [facility] Glucose, ur ql Negative Negative [facility] Ketones, ur 1+(A) Negative [facility] Bilirubin, ur Negative Negative [facility] Blood, ur Negative Negative [facility] Urobilinogen, ur <2.0 <2.0 mg/dL [facility] Nitrite, ur Negative Negative [facility] Leukocyte esterase, ur Negative Negative [facility]A reflex comment Reflex conditions for microscopic UA and culture not met. [facility] Urine 04/04/2024 12:0 6 PM CHALK TESTER 04/04/2024 12:15 PM CHALK TESTER Narrative [facility] - 04/04/2024 12:19 PM CHALK TESTER If patient unable to urinate, straight cath us Kel Pierson MD LAB MICROBIOLOGY - GENERAL ORDERABLES Final Result [facility] Department [place] [address] * POCT creatinine (04/04/2024 10:44 AM CHALK TESTER) [facility] Creatinine POC 0.7 0.6 - 1.1 mg/dL Blood 04/04/2024 10:4 4 AM CHALK TESTER 04/04/2024 10:44 AM CHALK TESTER Kel Pierson MD LAB POCT ORDERABLES - AMANDA CE Final Result [facility] Department [place] [address] * Respiratory pathogen panel Nasopharyngeal (04/04/2024 10:40 AM CHALK TESTER) [facility] Influenza A RNA Not Detected Not Detected Influenza B RNA Not Detected Not Detected [facility] RSV RNA Not Detected Not Detected [facility] COVID-19 RNA Not Detected Not Detected [facility] Coronavirus 229E RNA Not Detected Not Detected [facility] Coronavirus HKU1 RNA Not Detected Not Detected [facility] Coronavirus NL63 RNA Not Detected Not Detected [facility] Coronavirus OC43 RNA Not Detected Not Detected [facility] Adenovirus DNA Not Detected Not Detected [facility] Metapneumovirus RNA Not Detected Not Detected [facility] Rhinovirus/Enterov irus RNA Not Detected Not Detected [facility] Parainfluenza 1 RNA Not Detected Not Detected [facility] Parainfluenza 2 RNA Not Detected Not Detected [facility] Parainfluenza 3 RNA Not Detected Not Detected [facility] Parainfluenza 4 RNA Not Detected Not Detected [facility] B. pertussis DNA Not Detected Not Detected [facility] B. parapertussis DNA Not Detected Not Detected [facility] C. pneumoniae DNA Not Detected Not Detected [facility] M. pneumoniae DNA Not Detected Not Detected [facility] Nasopharyngeal 04/04/2024 10 :40 AM CHALK TESTER 04/04/2024 10:52 AM CHALK TESTER Narrative [facility] - 04/04/2024 12:14 PM CHALK TESTER Is the Patient experiencing symptoms consistent with COVID?->Unknown Surveillance testing for transplant patient?->No Interpretive Data The VSporto FilmArray Respiratory Panel (RP2.1) assay is a [...] assay has FDA clearance for testing of COOK MESS swabs. The performance of additional specimen types has been assessed by the performing laboratory. The performance characteristics of this assay have been determined by [facility] Molecular Infectious Disease Laboratory. Current interpretive data was last revised on 21. Kel Pierson MD LAB MICROBIOLOGY - GENERAL ORDERABLES Final Result Performing Organization Address City/[facility] Co de Phone Number [facility] [place] [address] * POCT lactate (04/04/2024 10:24 AM CHALK TESTER) Lactate POC i-STAT 1.2 0.7 - 2.0 mmol/L Blood 04/04/2024 10:2 4 AM CHALK TESTER 04/04/2024 10:24 AM CHALK TESTER Kel Pierson MD LAB POCT ORDERABLES - AMANDA CE Final Result Performing Organization Address [facility] Co de Phone Number [facility] [place] [address] * POCT lactate (04/04/2024 10:00 AM CHALK TESTER) Lactate POC i-STAT 1.5 0.7 - 2.0 mmol/L Blood 04/04/2024 10:0 0 AM CHALK TESTER 04/04/2024 10:00 AM CHALK TESTER Kel Pierson MD LAB POCT ORDERABLES - AMANDA CE Final Result Performing Organization Address [facility] Co de Phone Number [facility] [place] [address] * eGFR (04/04/2024 9:50 AM CHALK TESTER) eGFR >90 >=60 mL/min/1. 73 m2 Comment: [...] last reviewed 2020. Blood 04/04/2024 9:50 AM CHALK TESTER 04/04/2024 10:11 AM CHALK TESTER us Hernesto Marquez MD LAB BLOOD ORDERABLES F inal Result [facility] Department [place] [address] * Differential, auto (04/04/2024 9:50 AM CHALK TESTER) Neutrophil abs 6.1 1.5 - 6.5 K/cumm Imm gran abs 0.0 0.0 - 0.1 K/cumm [facility] Lymphocyte abs 1.3 0.8 - 3.3 K/cumm [facility] Monocyte abs 0.4 0.2 - 0.8 K/cumm [facility] Eosinophil abs 0.1 0.0 - 0.5 K/cumm [facility] Basophil abs 0.0 0.0 - 0.1 K/cumm [facility] Neutrophil pct 77.0 % [facility] Comment: Interpretive Data Percent cell count reference ranges are not reported, since discordance with absolute values may lead to misinterpretation of CBC data. Current Interpretive Data was last revised on 2017. Imm gran pct 0.3 % [facility] Comment: Interpretive Data Percent cell count reference ranges are not reported, since discordance with absolute values may lead to misinterpretation of CBC data. Current Interpretive Data was last revised on 2017. Lymphocyte pct 16.7 % [facility] Comment: Interpretive Data Percent cell count reference ranges are not reported, since discordance with absolute values may lead to misinterpretation of CBC data. Current Interpretive Data was last revised on 2017. Monocyte pct 5.1 % [facility] Comment: Interpretive Data Percent cell count reference ranges are not reported, since discordance with absolute values may lead to misinterpretation of CBC data. Current Interpretive Data was last revised on 2017. Eosinophil pct 0.6 % [facility] Comment: Interpretive Data Percent cell count reference ranges are not reported, since discordance with absolute values may lead to misinterpretation of CBC data. Current Interpretive Data was last revised on 2017. Basophil pct 0.3 % [facility] Comment: Interpretive Data Percent cell count reference ranges are not reported, since discordance with absolute values may lead to misinterpretation of CBC data. Current Interpretive Data was last revised on 2017. Blood 04/04/2024 9:50 AM CHALK TESTER 04/04/2024 10:11 AM CHALK TESTER Kel Pierson MD LAB BLOOD ORDERABLES Final Result [facility] Department [place] [address] * (ABNORMAL) CBC with auto differential (04/04/2024 9:50 AM CHALK TESTER) WBC 7.9 3.8 - 9.9 K/cumm Hgb 14.6 11.9 - 15.5 g/dL [facility] Hct 40.7 35.6 - 45.5 % [facility] Plt 290 150 - 400 K/cumm [facility] MPV 8.8(L) 9.1 - 12.3 fL [facility] RBC 4.61 3.90 - 5.20 M/cumm [facility] MCV 88.3 81.3 - 96.4 fL [facility] MCH 31.7 27.1 - 33.3 pg [facility] MCHC 35.9(H) 32.3 - 35.7 g/dL [facility] RDW CV 11.3 11.1 - 14.9 % [facility] RDW SD 36.2 35.7 - 48.1 fL [facility] NRBC abs 0.00 0.00 - 0.01 K/cumm [facility] Blood 04/04/2024 9:50 AM CHALK TESTER 04/04/2024 10:11 AM CHALK TESTER Kel Pierson MD LAB BLOOD ORDERABLES Final Result [facility] [place] [address] * (ABNORMAL) Comprehensive metabolic panel (04/04/2024 9:50 AM CHALK TESTER) Sodium 142 135 - 145 mmol/L Potassium, pl 3.9 3.3 - 4.9 mmol/L [facility] Chloride 102 97 - 110 mmol/L [facility] CO2 29 22 - 32 mmol/L [facility] Anion gap 11 2 - 15 mmol/L [facility] BUN 9 6 - 25 mg/dL [facility] Creatinine 0.71 0.60 - 1.10 mg/dL [facility] Glucose 101 70 - 199 mg/dL [facility] Comment: Interpretive Data Fasting glucose >/= [...] Calcium 9.7 8.5 - 10.3 mg/dL [facility] Bilirubin, total 0.9 0.1 - 1.2 mg/dL [facility] Protein, pl 7.0 6.5 - 8.5 g/dL [facility] Albumin 4.1 3.5 - 5.0 g/dL [facility] Alk phos 63 40 - 130 Units/L [facility] ALT 6(L) 7 - 45 Units/L [facility] AST 12 10 - 45 Units/L [facility] Blood 04/04/2024 9:50 AM CHALK TESTER 04/04/2024 10:11 AM CHALK TESTER Kel Pierson MD LAB BLOOD ORDERABLES Final Result [facility] [place] [address] * Surgical pathology (03/31/2024 7:30 AM CHALK TESTER) Tissue specimen (specimen) (Skin - Cyst / Tag / Debridement) 03/31/2024 7:30 AM CHALK TESTER Tissue specimen (specimen) (Hemorrhoid/Anal Tag) 03/31/2024 7:33 AM CHALK TESTER Narrative PATHOLOGY WC - 04/02/2024 4:02 PM CHALK TESTER EPIC results best viewed via link to PDF [facility] [place] [address] Note to Patients: This report may contain [...] Gender: F : 1970 (Age: 54) Address: [address] [place], [place] [id number] Hospital #: [id number] Taken:03/31/2024 Received:03/31/2024 Reported: 04/02/2024 Patient Type: [facility] EP SAME Client [facility] Service: Surgery Location: [...] interpretation for this case was performed at [facility], Department of Surgical Pathology, [address] [facility] [place], [place] [id number], [place] [address] CLIA # [id number] The performance characteristics of some immunohistochemical stains, fluorescence in-situ hybridization tests and immunophenotyping by flow cytometry cited in this report (if any) were determined by the Surgical Pathology and Flow Cytometry Departments at [facility] as part of an ongoing quality process lead program and in compliance with federally mandated [...] Surgical Pathology and Flow Cytometry Departments of [facility]. It has not been cleared or approved by the U. S. Food and Drug Administration. IMAGES AND SCANNED DOCUMENTS, IF INCLUDED, ONLY VIEWABLE IN PDF VERSION OF REPORT Keon Jasso MD LAB PATHOLOGY ORDERABLES Fin al Result Performing Organization Address [facility] Co de Phone Number PATHOLOGY [facility] [phone] * POC ISTAT (03/31/2024 6:35 AM CHALK TESTER) [facility] K POC 4.2 3.3 - 4.9 mmol/L Comment: Interpretive Data This method is not able to assess for hemolysis, which may falsely increase potassium concentrations. If further testing is needed to evaluate this result, consider in-laboratory plasma potassium. Current Interpretive Data was last revised on 2021. POC Device Number [id number] JORDYN UHA POC Performer [id number] JORDYN HUA Blood 03/31/2024 6:35 AM CHALK TESTER 03/31/2024 6:35 AM CHALK TESTER Keon Jasso MD LAB BLOOD ORDERABLES Final R esult Performing Organization Address City/[facility]/ZIP Co de Phone Number [facility] [address] [facility] [place] [address] * Serum Hepatitis panel (04/18/2015 6:59 AM CHALK TESTER) [facility] HCV ab Negative NEG HISTORICAL RESULTS Comment: Interpretive Data If confirmation is required, call Laboratory Customer Service to request sample to be sent to [facility] for Hepatitis C Virus (HCV) RNA Detection and Quantitation by Real-Time Reverse Public Works Director-PCR (RT-PCR). Current interpretive data was last revised [...] HISTO RICAL RESULTS Serum 04/18/2015 6:59 AM CHALK TESTER Shant Delgado LAB BLOOD ORDERABLES Final Resul [...] Advance Directives For more information, please contact: [phone] * Full Code (Latest Code Status on File) Date Activated Date Inactivated Comments 04/05/2024 1:41 AM 04/11/2024 6:52 PM Care Teams Panel Instrument Repairer Relationship Specialty Start Date End Date Miguel Ángel Oliva MD [address] [place] [address] PCP - General Internal Medicine 10/04/22 Juan Carlos Bangura MD Referring Physician Neurology 09/12/22 Keon Jasso MD [id number] [place] [address] Surgeon Colon and Rectal Surgery 05/24/23
--- OUTSIDE RECORDS SUMMARY | 2024-06-28 12:02 | XMS_ITS | Encounter Summary ---
Author Organization [facility] Address [address] [place] [address] Care Team Providers Care Community Worker Name Role Phone Miguel Ángel Oliva MD Primary Care Provider [phone] Encounter Details Date Type Department Care Team (Late st Contact Info) Description 06/20/2022 THEVA Message Enc [facility] Medical Group Multispecialty Care - [address] [place], [place] [id number] [place], [facility] Provider Lab R Social History Tobacco [...] Sex Assigned at Female 04/24/2024 2:19 PM SMALL ARMS REPAIRER Legal Sex Female 4:25 PM CDT [...] [facility] Multispecialty Care - [address] [address] [address] [place] [address] Miguel Ángel Oliva MD [address] [place] [address] documented as of this encounter Visit Diagnoses Not on filedocumented in this encounter Additional Health Concerns Assessment Noted Time PHQ-9 Depression Total Score: 20 022 11:52 AM CDT documented as of this encounter Care Teams Community Worker Relationship Specialty Start Date End Date Miguel Ángel Oliva MD [address] [place] [address] PCP - General INTERNAL MEDICINE 06/16/21 Nish Hunter Referring Physician 12/04/23 documented as of this encounter
--- OUTSIDE RECORDS SUMMARY | 2024-06-28 12:02 | XMS_ITS | Encounter Summary ---
Author Organization [facility] Address [facility] [place] [address] Care Team Providers Care Medical Reviewer Name Role Phone Miguel Ángel Oliva MD Primary Care Provider [phone] Reason for Visit * Reason Onset Date Comments ENT Symptoms 06/27/2024 Encounter Details Date Type Department Care Team (Late st Contact Info) Description 06/27/2024 Telephone [facility] Medical Group Multispecialty Care - [address] [address] [address] [place], [place] [id number] Miguel Ángel Oliva MD [address] [place] [address] [address] [place], [place] [id number] ENT Symptoms Social History Tobacco Use Types Packs/Day Years Used Date Smoking Tobacco: Former Cigarettes 0.3 59 S tarted: 1985 Passive Smoke Exposure: Never Smokeless Tobacco: Never Comments:1 cig a day after l unch; counseled by Dr. Oliva. Alcohol Use Standard Drinks/Week Comments Never 0 (1 standard drink = 0.6 oz pur e alcohol) [facility] Utilities Answer Date Recorded In the past 12 months has [employer], gas, oil, or water [employer] threatened to shut off services in your [...] Never 03/13/2023 How often do you attend adventist or roman catholic serv ices? Never 03/13/2023 Do you belong to any clubs o r organizations such as adventist groups, unions, fraternal or athletic groups, or [...] Recorded Patient Health Questionnaire-2 Score 2 05/09/2024 [facility] of Occupat ional Health - Occupational [...] Sex Assigned at Female 04/24/2024 2:19 PM SERVICE CREW SUPERVISOR Legal Sex Female 4:25 PM CDT Gender [...] possible antibiotic. No available apptswith MD or RISK MANAGEMENT MANAGER. Patient states that she feels horrible and does not want to go back to the hospital.Please advise patient when available. documented in this encounter Plan of Treatment Upcoming Encounters Date Type Department Care Team (Late st Contact Info) Description 06/30/2024 10:40 AM CDT Office Visit [facility] Medical Group Multispecialty Care - [address] [address] [address] [place] [address] Miguel Ángel Oliva MD [address] [place] [address] documented as of this encounter Visit Diagnoses Not on filedocumented in this encounter Additional Health Concerns Assessment Noted Time PHQ-9 Depression Total Score: 15 025 11:52 AM CDT documented as of this encounter Care Teams Medical Reviewer Relationship Specialty Start Date End Date Miguel Ángel Oliva MD [address] [place] [address] PCP - General INTERNAL MEDICINE 06/16/21 Nish Hunter Referring Physician 12/04/23 documented as of this encounter
--- OUTSIDE RECORDS SUMMARY | 2024-06-28 12:02 | XMS_ITS | Encounter Summary ---
Author Organization [facility] Address [facility] [place] [address] Care Team Providers Care Child And Family Therapist Name Role Phone Miguel Ángel Oliva MD Primary Care Provider [phone] Encounter Details Date Type Department Care Team (Late st Contact Info) Description 01/15/2024 [employer] Message Enc [facility] [address] [place] [address] Sandy Washington PTA LSVT appt times Social History Tobacco Use Types Packs/Day Years Used Date Smoking Tobacco: Every Day Cigarettes 0.3 20 Passive Smoke Exposure: Never Smokeless Tobacco: Never Comments:1 cig a day after l unch; counseled by Dr. Oliva. Alcohol Use Standard Drinks/Week Comments Never 0 (1 standard drink = 0.6 oz pur e alcohol) [facility] Utilities Answer Date Recorded In the past 12 months has e electric, gas, oil, or water [employer] threatened to shut off services in your [...] Never 03/13/2023 How often do you attend mosque or anabaptist serv ices? Never 03/13/2023 Do you belong to any clubs o r organizations such as mosque groups, unions, fraternal or athletic groups, or [...] Recorded Patient Health Questionnaire-2 Score 2 10/08/2023 [facility] of Occupat ional Health - Occupational Stress [...] place to sleep or slept in a halfway (including now)? No 03/13/2023 Comments No Sex and Gender Information Value Date Recorded Sex Assigned at Female 04/24/2024 2:19 PM HANDKERCHIEF MAKER Legal Sex Female 4:25 PM CDT [...] Date Author Status Yes 03/13/2023 6:00 PM HANDKERCHIEF MAKER Kasia Bourne RN Active documented in this encounter Plan of Treatment Upcoming Encounters Date Type Department Care Team (Late st Contact Info) Description 06/30/2024 10:40 AM CDT Office Visit [facility] Medical Group Multispecialty [facility] - [place] [address] [address] [place] [address] Miguel Ángel Oliva MD [address] [place] [address] documented as of this encounter Visit Diagnoses Not on filedocumented in this encounter Additional Health Concerns Assessment Noted Time PHQ-9 Depression Total Score: 12 024 11:33 AM CDT documented as of this encounter Care Teams Child And Family Therapist Relationship Specialty Start Date End Date Miguel Ángel Oliva MD [address] [place] [address] PCP - General INTERNAL MEDICINE 06/16/21 Nish Hunter Referring Physician 12/04/23 documented as of this encounter
--- OUTSIDE RECORDS SUMMARY | 2024-06-28 12:02 | XMS_ITS | Encounter Summary ---
Author Organization [facility] Address [facility] [place] [address] Care Team Providers Care Building Drafting Officer Name Role Phone Miguel Ángel Oliva MD Primary Care Provider [phone] Encounter Details Date Type Department Care Team (Late st Contact Info) Description 03/28/2023 [employer] Message Enc [facility] Medical Group Multispecialty Care - [address] [place] [address] Catracho, [facility] Provider Referral Social History Tobacco Use Types Packs/Day Years Used Date Smoking Tobacco: Every Day Cigarettes 0.3 20 Smokeless Tobacco: Never Comments:1 cig a day after l unch; counseled by Dr. Oliva. Alcohol Use Standard Drinks/Week Comments Never 0 (1 standard drink = 0.6 oz pur e alcohol) [facility] Utilities Answer Date Recorded In the past 12 months has e electric, gas, oil, or water [employer] threatened to shut off services in your [...] Never 03/13/2023 How often do you attend yarsanism or nondenominational serv ices? Never 03/13/2023 Do you belong to any clubs o r organizations such as yarsanism groups, unions, fraternal or athletic groups, or [...] Recorded Patient Health Questionnaire-2 Score 4 09/15/2022 [facility] of Occupat ional Health - [...] Sex Assigned at Female 04/24/2024 2:19 PM RETREAD TECHNICIAN Legal Sex Female 4:25 PM CDT [...] Date Author Status Yes 03/13/2023 6:00 PM RETREAD TECHNICIAN Kasia Bourne RN Active documented in this encounter Plan of Treatment Upcoming Encounters Date Type Department Care Team (Late st Contact Info) Description 06/30/2024 10:40 AM CDT Office Visit [facility] Medical [facility] Multispecialty [facility] - [address] [address] [address] [place] [address] Miguel Ángel Oliva MD [address] [place] [address] documented as of this encounter Visit Diagnoses Not on filedocumented in this encounter Additional Health Concerns Assessment Noted Time PHQ-9 Depression Total Score: 17 023 2:21 PM CDT documented as of this encounter Care Teams Building Drafting Officer Relationship Specialty Start Date End Date Miguel Ángel Oliva MD [address] [place] [address] PCP - General INTERNAL MEDICINE 06/16/21 Nish Hunter Referring Physician 12/04/23 documented as of this encounter
--- OUTSIDE RECORDS SUMMARY | 2024-06-28 12:02 | XMS_ITS | Encounter Summary ---
Author Organization [facility] Address [facility] [place] [address] Care Team Providers Care Sponsorship Coordinator Name Role Phone Miguel Ángel Oliva MD Primary Care Provider [phone] Encounter Details Date Type Department Care Team (Late st Contact Info) Description 05/25/2023 [employer] Message Enc [facility] [address] [place] [address] [facility] Provider Tod[facility] Physical Therapy Appointment 05/25/23 Social History Tobacco Use Types Packs/Day Years Used Date Smoking Tobacco: Every Day Cigarettes 0.3 20 Passive Smoke Exposure: Never Smokeless Tobacco: Never Comments:1 cig a day after l unch; counseled by Dr. Oliva. Alcohol Use Standard Drinks/Week Comments Never 0 (1 standard drink = 0.6 oz pur e alcohol) [facility] Utilities Answer Date Recorded In the past 12 months has [employer], gas, oil, or water [employer] threatened to shut off services in your [...] Recorded Patient Health Questionnaire-2 Score 4 09/15/2022 [facility] - Occupational Stress Questionnaire Answer Date [...] place to sleep or slept in a chcf (including now)? No 03/13/2023 Comments No Sex and Gender Information Value Date Recorded Sex Assigned at Female 04/24/2024 2:19 PM [employer] Legal Sex Female 4:25 PM CDT Gender [...] Date Author Status Yes 03/13/2023 6:00 PM [employer] Kasia Bourne RN Active documented in this encounter Plan of Treatment Upcoming Encounters Date Type Department Care Team (Late st Contact Info) Description 06/30/2024 10:40 AM CDT Office Visit [facility] [place] [address] [address] [place] [address] Miguel Ángel Oliva MD [address] [place] [id number] documented as of this encounter Visit Diagnoses Not on filedocumented in this encounter Additional Health Concerns Assessment Noted Time PHQ-9 Depression Total Score: 17 023 2:21 PM CDT documented as of this encounter Care Teams Sponsorship Coordinator Relationship Specialty Start Date End Date Miguel Ángel Oliva MD [address] [place] [id number] PCP - General INTERNAL MEDICINE 06/16/21 Nish Hunter Referring Physician 12/04/23 documented as of this encounter
[2024-06-28 12:08] VITALS: O2SAT 98
[2024-06-28 12:09] LABS: Basophils Percent Auto 0.3 % (0.2-1.2); Eosinophils Percent Auto 0.1 % (0-4.4); Hemoglobin 15.5 g/dL (12.0-15.0); Immature Granulocyte Absolute 0.01 K/mm3 (0.00-0.031); Immature Granulocyte Percent A 0.1 % (0-0.5); Lymphocytes Absolute Auto 1.54 K/mm3 (0.9-3.2); Lymphocytes Percent Auto 21.8 % (18.3-44.2); Mean Corpuscular HGB Conc 35.2 g/dl (32-36); Mean Corpuscular Hemoglobin 31.5 pg (26-34); Mean Corpuscular Volume 89.4 fl (80-100); Mean Platelet Volume 8.6 fl (7.4-10.4); Monocytes Absolute Auto 0.4 K/mm3 (0.1-0.6); Monocytes Percent Auto 5.2 % (2.6-8.5); Neutrophils Absolute Auto 5.1 K/mm3 (1.3-6.7); Neutrophils Percent Auto 72.5 % (45.5-73.1); Platelet Count Result 236 k/mm3 (150-375); Red Blood Count 4.92 M/mm3 (4.2-5.4); Red Cell Distribution Width 11.4 % (11.5-14.5); White Blood Count 7.1 K/mm3 (4.5-10.0)
--- NOTE | 2024-06-28 12:09 | ECG_ITS ---
Test Date: 2024-06-28 13:15:42 Measurements Intervals White Rate: 60 P: 52 PA: 153 QRS: 35 QRSD: 75 T: 44 QT: 434 QTc: 435 Interpretive Statements SINUS RHYTHM NONSPECIFIC T-WAVE ABNORMALITY No previous ECG available for comparison Electronically Signed On 06-28-2024 15:34:08 CDT by Eleonora Luis M.D.
--- NOTE | 2024-06-28 12:22 | ED.NEUROSD ---
HPI - Neuro Symptoms/Deficit General Chief Complaint: Neuro Symptoms/Deficit Stated Complaint: Head and neck pain-body tingling-Has Parkinsons Time Seen by Provider: 06/28/24 11:44 History of Present Illness HPI Narrative: 54-year-old female with a past medical history including generalized anxiety disorder, hypertension, hyperlipidemia, Parkinson's on carbidopa/levodopa. Patient presents to the emergency depart with multitude of complaints for almost 1 week. She states that she feels whole body ?tingling ?, chronic neck pain, migraine headache, generalized weakness, lightheadedness and dizziness. Patient states the symptoms resemble a migraine headache that she gets migraine cocktails for previously. She follows with a movement specialist at [facility] for her Parkinson's and solid them on Sunday before the symptoms onset. States that they have not changed any of her medications and she has been stable. No head injury or falls. Patient states she has been hospitalized for weakness before. Related Data Home Medications ?Medication ?Instructions ?Recorded ?Confirmed ?Last Taken ?Type acetaminophen 500 mg tablet 1,000 mg PO Q8H 04/11/24 04/11/24 Unknown History alprazolam 1 mg tablet 1 mg PO DAILY PRN anxiety 04/11/24 04/11/24 Unknown History carbidopa 25 mg-levodopa 100 mg 1.5 tablet PO TID 04/11/24 04/11/24 Unknown History tablet (Sinemet) famotidine 20 mg tablet 20 mg PO BID PRN indigestion 04/11/24 04/11/24 Unknown History sennosides 8.6 mg-docusate sodium 2 tab-cap PO BID PRN constipation 04/11/24 04/11/24 Unknown History 50 mg tablet Allergies Allergy/AdvReac Type Severity Reaction Status Date / Time gabapentin Allergy syncope Verified 06/28/24 11:07 Penicillins Allergy Rash Verified 06/28/24 11:07 Review of Systems Review of Systems: As reviewed [facility] Past Medical History Medical History MARISOL (generalized anxiety disorder) Debility Hyperlipidemia Meniere disease GERD (gastroesophageal reflux disease) Parkinsons disease Post-operative pain Urinary retention Hypertension Hemorrhoids Social History Social History Smoking status: Former smoker Alcohol intake: never Substance use: never Do You Feel Safe in your Home?: Yes Lack of Transportation: No Lack of Food: Never True Current Housing: I Have Housing Concerned About Future Housing: No Difficulty Paying Gas/Electric Bills: No Difficulty Paying for Meds: No Currently Unemployed: No Education: High School Diploma/GED Difficulty w/ Childcare or Family Care: No Spiritual care concerns: No Exam Narrative: GENERAL: Mild bilateral tremor consistent with patient's known Parkinson's but no acute distress, awake and answering all questions appropriately. HEAD: [Normocephalic, atraumatic.] EYES: [PERRLA and EOMI.] ENT: Nares clear, no rhinorrhea or epistaxis. Mucous membranes moist. NECK: Supple. CHEST: [Clear to auscultation. No respiratory distress.] HEART: [Regular rate and rhythm]. No murmur heard. [Normal peripheral pulses.] ABDOMEN: [Soft, nondistended], [nontender], [No rigidity or guarding] EXTREMITIES: Normal range of motion. [No edema.] SKIN: Warm, dry, no rash. NEURO: [No focal deficits]. Alert and oriented [x3.] Full strength and sensation throughout both arms and legs. Baseline tremor consistent with history of Parkinson's. PSYCH: [Normal mood and affect.] Course Vital Signs Vital signs: Vital Signs Temperature 36.1 C L 06/28/24 11:15 Pulse Rate 80 06/28/24 11:15 Respiratory Rate 16 06/28/24 11:15 Blood Pressure 140/92 H 06/28/24 11:15 Pulse Oximetry 100 06/28/24 11:15 Oxygen Delivery Room Air 06/28/24 11:15 Temperature 36.1 C L 06/28/24 11:15 Pulse Rate 72 06/28/24 15:40 Respiratory Rate 16 06/28/24 15:40 Blood Pressure 150/95 H 06/28/24 15:40 Pulse Oximetry 98 06/28/24 15:40 Oxygen Delivery Room Air 06/28/24 11:15 MDM - Neuro Symptoms/Deficit MDM Narrative Medical decision making narrative: 54-year-old female with history of generalized anxiety disorder, hypertension, hyperlipidemia, Parkinson's. She takes carbidopa and levodopa. Has not missed any dosages. Has a movement specialist at [facility]. Patient states for last 5 or so days she has been feeling generalized weakness, headache, lightheadedness and whole-body tingling. Patient is not any acute distress and has normal vital signs and unremarkable physical examination aside from her baseline parkinsonian tremor. She is afebrile, no tachycardia, fever, hypoxia, normal blood pressure. Full strength and sensation, awake alert oriented. Patient's symptomatology is very nonspecific and actually chronic sounding according to her description and previous notes. Patient has chronic neck pain from cervical dystonia, chronic migraines, history of generalized weakness. Differential diagnosis is broad including electrolyte abnormalities, vitamin B12 were benign deficiencies, intracranial pathology such as stroke or deterioration of Parkinson's, infectious pathology such as urine tract infection. CBC, CMP, lactic acid, troponin, EKG, CT of the head and CT of the cervical spine ordered. She was given fluid bolus, Compazine, diphenhydramine, Decadron, magnesium as a migraine cocktail for her headache. Patient will be re-evaluated. Patient had improvement in her headache after migraine cocktail. Workup shows no leukocytosis or significant anemia. Normal platelet count. Electrolytes were largely unremarkable. Normal renal function. Normal calcium, normal LFTs, negative troponin. Normal B12 and folic acid levels. Mildly low phosphorus but not severe. Normal magnesium. CTs of the cervical spine showed mild spondylosis but no acute abnormalities. CT of the head shows no acute findings. EKG shows sinus rhythm but no ST segment elevations, depressions or inversions. Patient has an unremarkable workup here with no focal findings or urgent/emergent concerns or any conditions requiring hospitalization. She will be discharged home with PCP follow-up. Medical Records Attestation: I reviewed the patient's medical records. Lab Data Attestation: I reviewed the patient's lab results. 06/28/24 12:03 06/28/24 12:03 Labs: Lab Results 06/28/24 06/28/24 06/28/24 Range/Units 12:03 12:03 12:03 WBC 7.1 (4.5-10.0) K/mm3 RBC 4.92 (4.2-5.4) M/mm3 Hgb 15.5 H (12.0-15.0) g/dL Hct 44.0 (37.0-47.0) % MCV 89.4 (80-100) fl MCH 31.5 (26-34) pg MCHC 35.2 (32-36) g/dl RDW 11.4 L (11.5-14.5) % Plt Count 236 (150-375) k/mm3 MPV 8.6 (7.4-10.4) fl Immature Gran % (Auto) 0.1 (0-0.5) % Neut % (Auto) 72.5 (45.5-73.1) % Lymph % (Auto) 21.8 (18.3-44.2) % [place] % (Auto) 5.2 (2.6-8.5) % Eos % (Auto) 0.1 (0-4.4) % Baso % (Auto) 0.3 (0.2-1.2) % Lymph # (Auto) 1.54 (0.9-3.2) K/mm3 [place] # (Auto) 0.4 (0.1-0.6) K/mm3 Eos # (Auto) 0.0 (0-0.3) K/mm3 Baso # (Auto) 0.0 (0.0-0.1) K/mm3 Abs Immat Gran (auto) 0.01 (0.00-0.031) K/mm3 Absolute Neuts (auto) 5.1 (1.3-6.7) K/mm3 Absolute Nucleated RBC 0.000 (0.0-0.012) K/mm3 Nucleated RBC % 0.0 (0.0-0.2) % Sodium Cancelled 136 L Potassium Cancelled 3.7 Chloride Cancelled Carbon Dioxide Anion Gap BUN Creatinine Estim Creat Clear Calc Estimated GFR Glucose Calcium Phosphorus Magnesium Total Bilirubin AST ALT Alkaline Phosphatase Troponin I (0.000-0.034) ng/mL Total Protein Albumin Vitamin B12 (239-931) pg/mL Folate (2.76->20) ng/mL 06/28/24 06/28/24 06/28/24 Range/Units 12:03 12:03 12:03 WBC (4.5-10.0) K/mm3 RBC (4.2-5.4) M/mm3 Hgb (12.0-15.0) g/dL Hct (37.0-47.0) % MCV (80-100) fl MCH (26-34) pg MCHC (32-36) g/dl RDW (11.5-14.5) % Plt Count (150-375) k/mm3 MPV (7.4-10.4) fl Immature Gran % (Auto) (0-0.5) % Neut % (Auto) (45.5-73.1) % Lymph % (Auto) (18.3-44.2) % [place] % (Auto) (2.6-8.5) % Eos % (Auto) (0-4.4) % Baso % (Auto) (0.2-1.2) % Lymph # (Auto) (0.9-3.2) K/mm3 [place] # (Auto) (0.1-0.6) K/mm3 Eos # (Auto) (0-0.3) K/mm3 Baso # (Auto) (0.0-0.1) K/mm3 Abs Immat Gran (auto) (0.00-0.031) K/mm3 Absolute Neuts (auto) (1.3-6.7) K/mm3 Absolute Nucleated RBC (0.0-0.012) K/mm3 Nucleated RBC % (0.0-0.2) % Sodium Potassium Chloride 101 Carbon Dioxide Cancelled 22 Anion Gap Cancelled 13 H BUN Cancelled Creatinine Estim Creat Clear Calc Estimated GFR Glucose Calcium Phosphorus Magnesium Total Bilirubin AST ALT Alkaline Phosphatase Troponin I (0.000-0.034) ng/mL Total Protein Albumin Vitamin B12 (239-931) pg/mL Folate (2.76->20) ng/mL 06/28/24 06/28/24 06/28/24 Range/Units 12:03 12:03 12:03 WBC (4.5-10.0) K/mm3 RBC (4.2-5.4) M/mm3 Hgb (12.0-15.0) g/dL Hct (37.0-47.0) % MCV (80-100) fl MCH (26-34) pg MCHC (32-36) g/dl RDW (11.5-14.5) % Plt Count (150-375) k/mm3 MPV (7.4-10.4) fl Immature Gran % (Auto) (0-0.5) % Neut % (Auto) (45.5-73.1) % Lymph % (Auto) (18.3-44.2) % [place] % (Auto) (2.6-8.5) % Eos % (Auto) (0-4.4) % Baso % (Auto) (0.2-1.2) % Lymph # (Auto) (0.9-3.2) K/mm3 [place] # (Auto) (0.1-0.6) K/mm3 Eos # (Auto) (0-0.3) K/mm3 Baso # (Auto) (0.0-0.1) K/mm3 Abs Immat Gran (auto) (0.00-0.031) K/mm3 Absolute Neuts (auto) (1.3-6.7) K/mm3 Absolute Nucleated RBC (0.0-0.012) K/mm3 Nucleated RBC % (0.0-0.2) % Sodium Potassium Chloride Carbon Dioxide Anion Gap BUN 13 D Creatinine Cancelled 0.57 L Estim Creat Clear Calc Cancelled 88 Estimated GFR Cancelled Glucose Calcium Phosphorus Magnesium Total Bilirubin AST ALT Alkaline Phosphatase Troponin I (0.000-0.034) ng/mL Total Protein Albumin Vitamin B12 (239-931) pg/mL Folate (2.76->20) ng/mL 06/28/24 06/28/24 06/28/24 Range/Units 12:03 12:03 12:03 WBC (4.5-10.0) K/mm3 RBC (4.2-5.4) M/mm3 Hgb (12.0-15.0) g/dL Hct (37.0-47.0) % MCV (80-100) fl MCH (26-34) pg MCHC (32-36) g/dl RDW (11.5-14.5) % Plt Count (150-375) k/mm3 MPV (7.4-10.4) fl Immature Gran % (Auto) (0-0.5) % Neut % (Auto) (45.5-73.1) % Lymph % (Auto) (18.3-44.2) % [place] % (Auto) (2.6-8.5) % Eos % (Auto) (0-4.4) % Baso % (Auto) (0.2-1.2) % Lymph # (Auto) (0.9-3.2) K/mm3 [place] # (Auto) (0.1-0.6) K/mm3 Eos # (Auto) (0-0.3) K/mm3 Baso # (Auto) (0.0-0.1) K/mm3 Abs Immat Gran (auto) (0.00-0.031) K/mm3 Absolute Neuts (auto) (1.3-6.7) K/mm3 Absolute Nucleated RBC (0.0-0.012) K/mm3 Nucleated RBC % (0.0-0.2) % Sodium Potassium Chloride Carbon Dioxide Anion Gap BUN Creatinine Estim Creat Clear Calc Estimated GFR > 60 Glucose Cancelled 133 H Calcium Cancelled 9.8 Phosphorus Cancelled Magnesium Total Bilirubin AST ALT Alkaline Phosphatase Troponin I (0.000-0.034) ng/mL Total Protein Albumin Vitamin B12 (239-931) pg/mL Folate (2.76->20) ng/mL 06/28/24 06/28/24 06/28/24 Range/Units 12:03 12:03 12:03 WBC (4.5-10.0) K/mm3 RBC (4.2-5.4) M/mm3 Hgb (12.0-15.0) g/dL Hct (37.0-47.0) % MCV (80-100) fl MCH (26-34) pg MCHC (32-36) g/dl RDW (11.5-14.5) % Plt Count (150-375) k/mm3 MPV (7.4-10.4) fl Immature Gran % (Auto) (0-0.5) % Neut % (Auto) (45.5-73.1) % Lymph % (Auto) (18.3-44.2) % [place] % (Auto) (2.6-8.5) % Eos % (Auto) (0-4.4) % Baso % (Auto) (0.2-1.2) % Lymph # (Auto) (0.9-3.2) K/mm3 [place] # (Auto) (0.1-0.6) K/mm3 Eos # (Auto) (0-0.3) K/mm3 Baso # (Auto) (0.0-0.1) K/mm3 Abs Immat Gran (auto) (0.00-0.031) K/mm3 Absolute Neuts (auto) (1.3-6.7) K/mm3 Absolute Nucleated RBC (0.0-0.012) K/mm3 Nucleated RBC % (0.0-0.2) % Sodium Potassium Chloride Carbon Dioxide Anion Gap BUN Creatinine Estim Creat Clear Calc Estimated GFR Glucose Calcium Phosphorus 2.3 L Magnesium Cancelled 1.7 Total Bilirubin Cancelled 1.1 AST Cancelled ALT Alkaline Phosphatase Troponin I (0.000-0.034) ng/mL Total Protein Albumin Vitamin B12 (239-931) pg/mL Folate (2.76->20) ng/mL 06/28/24 06/28/24 06/28/24 Range/Units 12:03 12:03 12:03 WBC (4.5-10.0) K/mm3 RBC (4.2-5.4) M/mm3 Hgb (12.0-15.0) g/dL Hct (37.0-47.0) % MCV (80-100) fl MCH (26-34) pg MCHC (32-36) g/dl RDW (11.5-14.5) % Plt Count (150-375) k/mm3 MPV (7.4-10.4) fl Immature Gran % (Auto) (0-0.5) % Neut % (Auto) (45.5-73.1) % Lymph % (Auto) (18.3-44.2) % [place] % (Auto) (2.6-8.5) % Eos % (Auto) (0-4.4) % Baso % (Auto) (0.2-1.2) % Lymph # (Auto) (0.9-3.2) K/mm3 [place] # (Auto) (0.1-0.6) K/mm3 Eos # (Auto) (0-0.3) K/mm3 Baso # (Auto) (0.0-0.1) K/mm3 Abs Immat Gran (auto) (0.00-0.031) K/mm3 Absolute Neuts (auto) (1.3-6.7) K/mm3 Absolute Nucleated RBC (0.0-0.012) K/mm3 Nucleated RBC % (0.0-0.2) % Sodium Potassium Chloride Carbon Dioxide Anion Gap BUN Creatinine Estim Creat Clear Calc Estimated GFR Glucose Calcium Phosphorus Magnesium Total Bilirubin AST 25 ALT Cancelled 15 Alkaline Phosphatase Cancelled 64 Troponin I < 0.012 (0.000-0.034) ng/mL Total Protein Cancelled Albumin Vitamin B12 (239-931) pg/mL Folate (2.76->20) ng/mL 06/28/24 06/28/24 Range/Units 12:03 12:03 WBC (4.5-10.0) K/mm3 RBC (4.2-5.4) M/mm3 Hgb (12.0-15.0) g/dL Hct (37.0-47.0) % MCV (80-100) fl MCH (26-34) pg MCHC (32-36) g/dl RDW (11.5-14.5) % Plt Count (150-375) k/mm3 MPV (7.4-10.4) fl Immature Gran % (Auto) (0-0.5) % Neut % (Auto) (45.5-73.1) % Lymph % (Auto) (18.3-44.2) % [place] % (Auto) (2.6-8.5) % Eos % (Auto) (0-4.4) % Baso % (Auto) (0.2-1.2) % Lymph # (Auto) (0.9-3.2) K/mm3 [place] # (Auto) (0.1-0.6) K/mm3 Eos # (Auto) (0-0.3) K/mm3 Baso # (Auto) (0.0-0.1) K/mm3 Abs Immat Gran (auto) (0.00-0.031) K/mm3 Absolute Neuts (auto) (1.3-6.7) K/mm3 Absolute Nucleated RBC (0.0-0.012) K/mm3 Nucleated RBC % (0.0-0.2) % Sodium Potassium Chloride Carbon Dioxide Anion Gap BUN Creatinine Estim Creat Clear Calc Estimated GFR Glucose Calcium Phosphorus Magnesium Total Bilirubin AST ALT Alkaline Phosphatase Troponin I (0.000-0.034) ng/mL Total Protein 8.0 Albumin Cancelled 4.9 Vitamin B12 682.0 (239-931) pg/mL Folate 16.0 (2.76->20) ng/mL Imaging Data Attestation: I personally reviewed and interpreted this imaging study as follows: My impression: Impressions Head CT 06/28/24 12:32 IMPRESSION: 1. No acute intracranial process. Cervical Spine CT 06/28/24 12:38 IMPRESSION: 1. Mild cervical spondylosis with no acute osseous abnormality. Discharge Plan Discharge Clinical Impression: Parkinson's disease with dyskinesia and fluctuating manifestations, Cervical dystonia, Generalized weakness, Migraine headache Patient Disposition: Home Condition: Stable Instructions: Antibiotic Form Additional Instructions: All of your laboratory studies are unremarkable, no electrolyte concerns, no infectious concerns, EKG is normal. Your CT scans of the head and neck showed no abnormalities or acute findings. Your symptoms sounded like that could be consistent with a migraine. Follow-up with your primary care provider and neurologist at [facility], return with any emergent concerns otherwise. Patient Language: Divehi Prescriptions: No Action acetaminophen 500 mg tablet 1,000 mg PO Q8H alprazolam 1 mg tablet 1 mg PO DAILY PRN (Reason: anxiety) carbidopa-levodopa [Sinemet] 25-100 mg tablet 1.5 tablet PO TID famotidine 20 mg tablet 20 mg PO BID PRN (Reason: indigestion) sennosides-docusate sodium 8.6-50 mg tablet 2 tab-cap PO BID PRN (Reason: constipation) hydrocortisone acetate [Anusol-HC] 25 mg Suppository 25 mg RECTAL Q12HR Qty: 60 0RF prochlorperazine maleate 5 mg tablet 5 mg PO Q8H PRN (Reason: nausea and vomiting) Qty: 30 0RF ondansetron HCl 8 mg tablet 8 mg PO .TIDAC PRN (Reason: nausea and vomitting) Qty: 90 0RF meclizine 25 mg tablet 25 mg PO TID PRN (Reason: dizziness or nausea) Qty: 30 0RF triamterene-hydrochlorothiazid 37.5-25 mg tablet 1 tablet PO QAM Qty: 30 0RF polyethylene glycol 3350 17 gram/dose powder 17 g PO DAILY Qty: 30 0RF rosuvastatin 40 mg tablet 40 mg PO QHS Qty: 30 0RF psyllium husk 3.4 gram powder in packet 1 packet PO DAILY Qty: 30 0RF Follow-up/Referrals: Hazel,MD Miguel Ángel [Primary Care Provider] - Time of Disposition: 14:52
[2024-06-28 12:24] LABS: Alanine Aminotransferase 15 U/L (6-35); Albumin Level 4.9 g/dL (3.5-5.1); Alkaline Phosphatase 64 U/L (38-126); Anion Gap 13 mmol/L (4-12); Aspartate Amino Transferase 25 U/L (14-36); Bilirubin,Total 1.1 mg/dL (0.2-1.3); Blood Urea Nitrogen 13 mg/dL (7-17); Calcium 9.8 mg/dL (8.4-10.2); Carbon Dioxide 22 mmol/L (22-30); Chloride 101 mmol/L (98-107); Estimated CRCL calculation 88 ml/min; Estimated Glomerular Filt Rate > 60; Glucose 133 mg/dL (65-110); Magnesium 1.7 mg/dL (1.6-2.3); Phosphorus 2.3 mg/dL (2.5-4.5); Potassium 3.7 mmol/L (3.4-5.0); Sodium 136 mmol/L (137-145)
[2024-06-28 12:35] LABS: Troponin I < 0.012 ng/mL (0.000-0.034)
[2024-06-28] MEDS: SODIUM CHLORIDE 0.9% IV 1,000 ML 999 ML IV CONT (12:58)
[2024-06-28] MEDS: dexAMETHasone SOD PHOS INJ 10 MG/ML 1 ML VIAL IV PUSH (12:58)
[2024-06-28] MEDS: diphenhydrAMINE HCl INJ 50 MG/ML VIAL IV PUSH (12:58)
[2024-06-28] MEDS: PROCHLORPERAZINE EDISYLATE 10 MG/2 ML VIAL IV PUSH (12:59)
[2024-06-28] MEDS: MAGNESIUM SULF 2 GM/WATER 50ML 2 GM/50 ML BAG IVPB (13:11)
[2024-06-28 13:17] VITALS: BP 161/92; PULSE 64; RESP 16; O2SAT 100
[2024-06-28 15:40] VITALS: BP 150/95; PULSE 72; RESP 16; O2SAT 98
== END 2024-06-28 15:35 | disposition home or self-care (01) ==
PROVIDERS: Emergency Provider Student in an Organized Health Care Education/Training Program; PCP Internal Medicine
DX: G20.B2 Parkinson's disease with dyskinesia, with fluctuations (principal); G24.3 Spasmodic torticollis; G43.909 Migraine, unspecified, not intractable, without status migrainosus; R53.1 Weakness; I10 Essential (primary) hypertension; E78.5 Hyperlipidemia, unspecified; H81.09 Meniere's disease, unspecified ear; K21.9 Gastro-esophageal reflux disease without esophagitis; F41.1 Generalized anxiety disorder; Z87.891 Personal history of nicotine dependence; Z79.899 Other long term (current) drug therapy
CPT/HCPCS: 36415; 70450; 72125; 80053; 82607; 82746; 83735; 84100; 84484; 85025; 93005; 96365; 96366; 96375; 99284; J0780; J1100; J1200; J3475; J7030